=== PATIENT | male | born 1965 | race American Indian/Alaskan Native ===

== ENCOUNTER 2016-07-08 11:03 | Emergency (ER) | payer SELFPAY ==
[2016-07-08 11:39] VITALS: BP 151/89
--- NOTE | 2016-07-08 12:05 | Emergency Department Report ---
ED General Adult HPI - General Chief complaint: Dyspnea/Respdistress Stated complaint: CHEST PAIN / VIN Time Seen by Provider: 07/08/16 11:57 Source: patient, EMS Mode of arrival: Stretcher Limitations: No Limitations - History of Present Illness Initial comments: I am told that the patient was "caught in [employer] lifting". Apparently police called EMS as he was short of breath and had multiple other complaints. His complaints on my care to include shortness of breath anterior nonradiating chest pain and nonproductive cough. He has a history of congestive heart failure and noncompliance with medication. He also states he has a history of renal failure. He complains of bilateral leg swelling. The patient denies any productive sputum. He denies fever or chills. Severity scale (0 -10): 2 Consistency: intermittent Improves with: none Worsens with: none Associated Symptoms: denies other symptoms Treatments Prior to Arrival: none - Related Data Home Medications Medication Instructions Recorded Confirmed Last Taken Furosemide [Lasix TAB] 20 mg PO QAM 06/08/15 07/08/16 07/08/16 Carvedilol [Coreg] 25 mg PO BID 03/11/16 07/08/16 07/08/16 Potassium Chloride [K-Dur] 10 meq PO QDAY 03/11/16 07/08/16 07/08/16 Previous Rx's Medication Instructions Recorded Last Taken Type Insulin Glargine [Lantus VIAL] 40 unit SUB-Q QHS #1 vial 06/08/15 Unknown Rx Lisinopril [Zestril TAB] 20 mg PO QDAY #30 tablet 06/08/15 Unknown Rx Insulin NPH/Regular [NovoLIN 70/30] 25 unit SQ BID #30 units 03/11/16 Unknown Rx Allergies Allergy/AdvReac Type Severity Reaction Status Date / Time Penicillins Allergy Unknown Verified 06/08/15 07:28 ED Review of Systems ROS: Stated complaint: CHEST PAIN / VIN Other details as noted in HPI Constitutional: denies: chills, fever Eyes: denies: eye pain, eye discharge, vision change ENT: denies: ear pain, throat pain Respiratory: cough, shortness of breath. denies: wheezing Cardiovascular: chest pain. denies: palpitations Endocrine: no symptoms reported Gastrointestinal: denies: abdominal pain, nausea, diarrhea Genitourinary: denies: urgency, dysuria Musculoskeletal: denies: back pain, joint swelling, arthralgia Skin: denies: rash, lesions Neurological: denies: headache, weakness, paresthesias Psychiatric: denies: anxiety, depression Hematological/Lymphatic: denies: easy bleeding, easy bruising ED Past Medical Hx - Past Medical History Hx Hypertension: Yes Hx Congestive Heart Failure: Yes Hx Diabetes: Yes - Social History Smoking Status: Former Smoker Substance Use Type: None - Medications Home Medications: Home Medications Medication Instructions Recorded Confirmed Last Taken Type Furosemide [Lasix TAB] 20 mg PO QAM 06/08/15 07/08/16 07/08/16 History Insulin Glargine [Lantus VIAL] 40 unit SUB-Q QHS #1 vial 06/08/15 07/08/16 Unknown Rx Lisinopril [Zestril TAB] 20 mg PO QDAY #30 tablet 06/08/15 07/08/16 Unknown Rx Carvedilol [Coreg] 25 mg PO BID 03/11/16 07/08/16 07/08/16 History Insulin NPH/Regular [NovoLIN 70/30] 25 unit SQ BID #30 units 03/11/16 07/08/16 Unknown Rx Potassium Chloride [K-Dur] 10 meq PO QDAY 03/11/16 07/08/16 07/08/16 History ED Physical Exam - General Limitations: No Limitations General appearance: alert, in no apparent distress - Head Head exam: Present: atraumatic, normocephalic - Eye Eye exam: Present: normal appearance. Absent: scleral icterus - ENT ENT exam: Present: mucous membranes moist - Neck Neck exam: Present: normal inspection - Respiratory Respiratory exam: Present: normal lung sounds bilaterally. Absent: respiratory distress - Cardiovascular Cardiovascular Exam: Present: regular rate, normal rhythm. Absent: systolic murmur, diastolic murmur, rubs, gallop - GI/Abdominal GI/Abdominal exam: Present: soft, normal bowel sounds. Absent: distended, tenderness, guarding, rebound, rigid - Rectal Rectal exam: Present: deferred - Extremities Exam Extremities exam: Present: normal inspection - Back Exam Back exam: Present: normal inspection - Neurological Exam Neurological exam: Present: alert, oriented X3, CN II-XII intact. Absent: motor sensory deficit - Psychiatric Psychiatric exam: Present: normal affect, normal mood - Skin Skin exam: Present: warm, dry, intact, normal color. Absent: rash ED Course Vital Signs 07/08/16 07/08/16 11:36 11:45 Temperature 98.3 F Pulse Rate 84 Respiratory 18 22 Rate Blood Pressure 151/89 O2 Sat by Pulse 96 94 Oximetry ED Medical Decision Making - Lab Data Result diagrams: 07/08/16 11:53 07/08/16 11:53 Laboratory Results - last 24 hr 07/08/16 07/08/16 07/08/16 11:53 11:53 12:08 WBC 6.9 RBC 5.11 H Hgb 15.0 Hct 44.6 MCV 87 MCH 29 MCHC 34 RDW 14.6 Plt Count 202 Lymph % (Auto) 26.0 [place] % (Auto) 9.1 H Eos % (Auto) 1.9 Baso % (Auto) 1.2 Lymph # 1.8 [place] # 0.6 Eos # 0.1 Baso # 0.1 Seg Neutrophils % 61.8 Seg Neutrophils # 4.2 PT 13.2 INR 1.01 APTT 31.7 D-Dimer < 136 POC ABG pH POC ABG pCO2 POC ABG pO2 POC ABG HCO3 POC ABG Total CO2 POC ABG O2 Sat POC ABG Base Excess FiO2 Sodium 136 L Potassium 4.0 Chloride 98.4 Carbon Dioxide 22 Anion Gap 20 BUN 17 Creatinine 1.3 Estimated GFR > 60 BUN/Creatinine Ratio 13.07 Glucose 174 H Calcium 8.1 L Magnesium Total Bilirubin Direct Bilirubin AST ALT Alkaline Phosphatase Ammonia Total Creatine Kinase CK-MB (CK-2) CK-MB (CK-2) Rel Index Troponin T < 0.010 NT-Pro-B Natriuret Pep 1949 H Total Protein Albumin Albumin/Globulin Ratio Urine Color Urine Turbidity Urine pH Ur Specific [place] Urine Protein Urine Glucose (UA) Urine Ketones Urine Blood Urine Nitrite Urine Bilirubin Urine Ictotest Urine Urobilinogen Ur Leukocyte Esterase Urine WBC (Auto) Urine RBC (Auto) U Epithel Cells (Auto) Urine Mucus Urine Opiates Screen Urine Methadone Screen Ur Barbiturates Screen Ur Phencyclidine Scrn Ur Amphetamines Screen U Benzodiazepines Scrn Urine Cocaine Screen U Marijuana (THC) Screen Drugs of Abuse Note 07/08/16 07/08/16 07/08/16 12:08 12:26 12:40 WBC RBC Hgb Hct MCV MCH MCHC RDW Plt Count Lymph % (Auto) [place] % (Auto) Eos % (Auto) Baso % (Auto) Lymph # [place] # Eos # Baso # Seg Neutrophils % Seg Neutrophils # PT INR APTT D-Dimer POC ABG pH 7.505 H POC ABG pCO2 34.6 L POC ABG pO2 80 POC ABG HCO3 27.2 POC ABG Total CO2 28 POC ABG O2 Sat 97 POC ABG Base Excess 4 FiO2 21 Sodium Potassium Chloride Carbon Dioxide Anion Gap BUN Creatinine Estimated GFR BUN/Creatinine Ratio Glucose Calcium Magnesium 2.0 Total Bilirubin 0.5 Direct Bilirubin < 0.2 AST 34 ALT 26 Alkaline Phosphatase 64 Ammonia 37.0 Total Creatine Kinase 666 H CK-MB (CK-2) 10.1 H CK-MB (CK-2) Rel Index 1.5 Troponin T NT-Pro-B Natriuret Pep Total Protein 6.6 Albumin 3.2 L Albumin/Globulin Ratio 0.9 Urine Color Urine Turbidity Urine pH Ur Specific [place] Urine Protein Urine Glucose (UA) Urine Ketones Urine Blood Urine Nitrite Urine Bilirubin Urine Ictotest Urine Urobilinogen Ur Leukocyte Esterase Urine WBC (Auto) Urine RBC (Auto) U Epithel Cells (Auto) Urine Mucus Urine Opiates Screen Urine Methadone Screen Ur Barbiturates Screen Ur Phencyclidine Scrn Ur Amphetamines Screen U Benzodiazepines Scrn Urine Cocaine Screen U Marijuana (THC) Screen Drugs of Abuse Note 07/08/16 07/08/16 12:58 12:58 WBC RBC Hgb Hct MCV MCH MCHC RDW Plt Count Lymph % (Auto) [place] % (Auto) Eos % (Auto) Baso % (Auto) Lymph # [place] # Eos # Baso # Seg Neutrophils % Seg Neutrophils # PT INR APTT D-Dimer POC ABG pH POC ABG pCO2 POC ABG pO2 POC ABG HCO3 POC ABG Total CO2 POC ABG O2 Sat POC ABG Base Excess FiO2 Sodium Potassium Chloride Carbon Dioxide Anion Gap BUN Creatinine Estimated GFR BUN/Creatinine Ratio Glucose Calcium Magnesium Total Bilirubin Direct Bilirubin AST ALT Alkaline Phosphatase Ammonia Total Creatine Kinase CK-MB (CK-2) CK-MB (CK-2) Rel Index Troponin T NT-Pro-B Natriuret Pep Total Protein Albumin Albumin/Globulin Ratio Urine Color Yellow Urine Turbidity Clear Urine pH 5.0 Ur Specific [place] 1.017 Urine Protein >500 Urine Glucose (UA) 50 Urine Ketones Neg Urine Blood Sm Urine Nitrite Neg Urine Bilirubin Neg Urine Ictotest Not Reportable Urine Urobilinogen < 2.0 Ur Leukocyte Esterase Neg Urine WBC (Auto) 3.0 Urine RBC (Auto) 2.0 U Epithel Cells (Auto) < 1.0 Urine Mucus Few Urine Opiates Screen Presumptive negative Urine Methadone Screen Presumptive negative Ur Barbiturates Screen Presumptive negative Ur Phencyclidine Scrn Presumptive negative Ur Amphetamines Screen Presumptive negative U Benzodiazepines Scrn Presumptive negative Urine Cocaine Screen Presumptive positive U Marijuana (THC) Screen Presumptive negative Drugs of Abuse Note Disclamer - EKG Data -: EKG Interpreted by Me EKG shows normal: sinus rhythm, axis, intervals, QRS complexes - EKG Data Interpretation: other - Radiology Data interpreted by me: LVH, inverted T high and anterolateral Critical care attestation.: If time is entered above; I have spent that time in minutes in the direct care of this critically ill patient, excluding procedure time. ED Disposition Clinical Impression: Congestive cardiomyopathy, Cocaine abuse Chest pain Qualifiers: Chest pain type: unspecified Qualified Code(s): R07.9 - Chest pain, unspecified Disposition: DISCHARGED TO HOME OR SELFCARE Is pt being admited?: No Does the pt Need Aspirin: No Condition: Stable Instructions: Chest Pain (ED) Additional Instructions: Patient left. He refused to sign out AMA. Referrals: PRIMARY CARE, [Primary Care Provider] - 3-5 Days Forms: AMA Form Time of Disposition: 14:31
--- NOTE | 2016-07-08 12:05 | XRay Report ---
Single view chest: Compared to when he was 14. History: Shortness of breath Findings: Cardiomegaly. Trachea is midline. No consolidation, pneumothorax or pleural effusion. Impression: Cardiomegaly. No acute lung changes.
[2016-07-08 12:18] LABS: Basophils % (Auto) 1.2 % (0.0-1.8); Eosinophils % (Auto) 1.9 % (0.0-4.3); Hematocrit 44.6 % (35.5-45.6); Mean Corpuscular HGB Conc 34 % (32-34); Mean Corpuscular Hemoglobin 29 pg (28-32); Mean Corpuscular Volume 87 fl (84-94); Platelet Count 202 K/mm3 (140-440); Red Blood Count 5.11 M/mm3 (3.65-5.03); Red Cell Distribution Width 14.6 % (13.2-15.2); White Blood Count 6.9 K/mm3 (4.5-11.0)
[2016-07-08 12:25] LABS: Anion Gap 20 mmol/L; BUN/Creatinine Ratio 13.07; Blood Urea Nitrogen 17 mg/dL (9-20); Calcium 8.1 mg/dL (8.4-10.2); Carbon Dioxide 22 mmol/L (22-30); Chloride 98.4 mmol/L (98-107); Glucose 174 mg/dL (75-100); Sodium 136 mmol/L (137-145)
[2016-07-08 12:42] LABS: Creatine Kinase MB 10.1 ng/mL (0.0-4.0); INR 1.01 (0.87-1.13)
[2016-07-08 12:43] LABS: Alanine Aminotransferase 26 units/L (7-56); Albumin 3.2 g/dL (3.9-5); Albumin/Globulin Ratio 0.9 %; Alkaline Phosphatase 64 units/L (35-129); Bilirubin,Total 0.5 mg/dL (0.1-1.2); Creatine Kinase 666 units/L (55-170); Partial Thromboplastin Time 31.7 Sec. (24.2-36.6); Total Protein 6.6 g/dL (6.3-8.2)
[2016-07-08 12:44] LABS: Bilirubin,Direct < 0.2 mg/dL (0-0.2)
[2016-07-08 12:46] LABS: ISTAT Base Excess 4; ISTAT DEVICE 0; ISTAT HCO3 27.2; ISTAT PCO2 34.6 (35-45); ISTAT PH 7.505 (7.35-7.45); ISTAT PO2 80 (80-105); ISTAT SO2 97; ISTAT TCO2 28
[2016-07-08 13:36] LABS: Bilirubin,Urine NEG (Negative); Blood,Urine SM (Negative); Ketones,Urine NEG (Negative); Leukocyte Esterase,Urine NEG (Negative); Mucus,Urine FEW /HPF; Nitrite,Urine NEG (Negative); Urobilinogen,Urine < 2.0 mg/dL (<2.0)
[2016-07-08 13:39] LABS: Urine Drugs of Abuse Note Disclamer
[2016-07-08 13:42] LABS: Protein,Urine >500 mg/dL (Negative)
== END 2016-07-08 14:13 | disposition home or self-care (01) ==
LOC: ED 11:03
DX: I42.0 Dilated cardiomyopathy (principal); F14.10 Cocaine abuse, uncomplicated; R07.9 Chest pain, unspecified; I10 Essential (primary) hypertension; E11.9 Type 2 diabetes mellitus without complications; Z87.891 Personal history of nicotine dependence; Z79.4 Long term (current) use of insulin; Z88.0 Allergy status to penicillin
CPT/HCPCS: 36415; 71010; 80048; 80074; 80307; 81001; 82140; 82550; 82553; 82803; 83735; 83880; 84484; 85025; 85379; 85610; 85730; 93005; 93010

== ENCOUNTER 2016-08-20 20:46 | Inpatient (IN) | payer OTHER ==
[2016-08-20] MEDS ORDERED: DUONEB 0.5 MG-3 MG/3 ML SOLN IH ONE ×2 (20:52→21:00)
[2016-08-20 21:32] LABS: Basophils % (Auto) 0.9 % (0.0-1.8); Hematocrit 49.8 % (35.5-45.6); Hemoglobin 16.2 gm/dl (11.8-15.2); Mean Corpuscular HGB Conc 33 % (32-34); Mean Corpuscular Hemoglobin 29 pg (28-32); Mean Corpuscular Volume 89 fl (84-94); Platelet Count 230 K/mm3 (140-440); Red Blood Count 5.62 M/mm3 (3.65-5.03); White Blood Count 8.2 K/mm3 (4.5-11.0)
[2016-08-20] MEDS ORDERED: LASIX IV ONE (21:40)
[2016-08-20] MEDS ORDERED: ASPIRIN PO ONE (21:40)
--- NOTE | 2016-08-20 21:56 | Emergency Department Report ---
ED Shortness of Breath HPI - General Chief Complaint: Dyspnea/Respdistress Stated Complaint: DIFFICULTY BREATHING Time Seen by Provider: 08/20/16 21:26 Source: patient Mode of arrival: Wheelchair Limitations: No Limitations - History of Present Illness Initial Comments: 50-year-old male with a past medical history morbid obesity, sleep apnea, asthma , CHF, diabetes, and hypertension presents to the hospital complains of shortness of breath ongoing for the past 3-4 days. Symptoms are worse with exertion. Intermittent chest pain described as sharp at times but also feels like something sitting on his chest. Pain moderate in intensity. Patient has been compliant with his Lasix 20 mg but states that 18 months ago when he was in nursing home he was on 40 mg daily and thinks that the dose was not high enough. He complains of abdominal swelling and distention and worsening bilateral ankle/ distal extremity edema. Positive cough productive of white sputum. Patient also has sleep apnea but cannot afford a CPAP machine and states he wakes up frequently throughout the night. No complaints of home oxygen use patient does not use home oxygen. Upon medical record review patient last visit to the ER was in July and was to see uds was positive for cocaine. Patient denies recent cocaine use. - Related Data Home Medications Medication Instructions Recorded Confirmed Last Taken Furosemide [Lasix TAB] 20 mg PO QAM 06/08/15 08/20/16 1 Day Ago Carvedilol [Coreg] 25 mg PO BID 03/11/16 08/20/16 1 Day Ago 20 Potassium Chloride [K-Dur] 10 meq PO QDAY 03/11/16 08/20/16 1 Day Ago Previous Rx's Medication Instructions Recorded Last Taken Type Insulin Glargine [Lantus VIAL] 40 unit SUB-Q QHS #1 vial 06/08/15 Unknown Rx Lisinopril [Zestril TAB] 20 mg PO QDAY #30 tablet 06/08/15 1 Day Ago Rx Insulin NPH/Regular [NovoLIN 70/30] 25 unit SQ BID #30 units 03/11/16 Unknown Rx Allergies Allergy/AdvReac Type Severity Reaction Status Date / Time Penicillins Allergy Unknown Verified 06/08/15 07:28 ED Review of Systems ROS: Stated complaint: DIFFICULTY BREATHING Other details as noted in HPI Comment: All other systems reviewed and negative Other: Constitutional: No fevers chills Eyes: No eye pain visual changes ENT: No ear pain or throat pain Neck: Denies pain Respiratory: as per hpi Cardiovascular:as per hpi GI: Denies abdominal pain : Denies dysuria Musculoskeletal: Denies back pain Skin: Denies rash, lesions, erythema Neurologic: Denies headache, numbness, weakness Psychiatric: Denies suicidal ideation, hallucinations ED Past Medical Hx - Past Medical History Hx Hypertension: Yes Hx Congestive Heart Failure: Yes Hx Diabetes: Yes Hx Asthma: Yes - Social History Smoking Status: Unknown if ever smoked Substance Use Type: None - Medications Home Medications: Home Medications Medication Instructions Recorded Confirmed Last Taken Type Furosemide [Lasix TAB] 20 mg PO QAM 06/08/15 08/20/16 1 Day Ago History Insulin Glargine [Lantus VIAL] 40 unit SUB-Q QHS #1 vial 06/08/15 08/20/16 Unknown Rx Lisinopril [Zestril TAB] 20 mg PO QDAY #30 tablet 06/08/15 08/20/16 1 Day Ago Rx Carvedilol [Coreg] 25 mg PO BID 03/11/16 08/20/16 1 Day Ago History 20 Insulin NPH/Regular [NovoLIN 70/30] 25 unit SQ BID #30 units 03/11/16 08/20/16 Unknown Rx Potassium Chloride [K-Dur] 10 meq PO QDAY 03/11/16 08/20/16 1 Day Ago History ED Physical Exam - General Limitations: No Limitations - Other Other exam information: General: No limitations, patient is alert in no acute distress Head exam: Atraumatic, normocephalic Eyes exam: Normal appearance, pupils equal reactive to light, extraocular movements intact ENT: Moist mucous membrane, normal oropharynx Neck exam: Normal inspection, full range of motion Respiratory exam: mild basilar crackles Cardiovascular: Normal rate and rhythm, normal heart sounds Abdomen: Soft, nondistended, and nontender, with normal bowel sounds, no rebound, or guarding Extremity: Full range of motion, b/l lower extermity edema Back: Normal Inspection, full range of motion, no tenderness Neurologic: Alert, oriented x3, cranial nerves intact, no motor or sensory deficit Psychiatric: normal affect, normal mood Skin: Warm, dry, intact ED Course Vital Signs 08/20/16 08/20/16 08/20/16 20:54 21:04 21:06 Temperature 98.4 F Pulse Rate 108 H Pulse Rate [ 104 H Anterior Bilateral Throughout] Respiratory 30 H Rate Respiratory 18 Rate [Anterior Bilateral Throughout] Blood Pressure 191/138 Blood Pressure [Left] O2 Sat by Pulse 90 97 Oximetry 08/20/16 08/20/16 21:20 22:22 Temperature 98 F 98 F Pulse Rate 100 H 103 H Pulse Rate [ Anterior Bilateral Throughout] Respiratory 24 20 Rate Respiratory Rate [Anterior Bilateral Throughout] Blood Pressure Blood Pressure 108/83 101/83 [Left] O2 Sat by Pulse 100 96 Oximetry - Reevaluation(s) Reevaluation #1: 08/21/16 00:44 Patient received Ventolin neb prior to my evaluation and reports some improvement and shortness of breath ED Medical Decision Making - Lab Data Result diagrams: 08/20/16 21:18 08/20/16 22:28 Lab Results 08/20/16 08/20/16 08/20/16 Range/Units 21:17 21:18 21:31 WBC 8.2 (4.5-11.0) K/mm3 RBC 5.62 H (3.65-5.03) M/mm3 Hgb 16.2 H (11.8-15.2) gm/dl Hct 49.8 H (35.5-45.6) % MCV 89 (84-94) fl MCH 29 (28-32) pg MCHC 33 (32-34) % RDW 15.0 (13.2-15.2) % Plt Count 230 (140-440) K/mm3 Lymph % (Auto) 17.5 (13.4-35.0) % [place] % (Auto) 9.8 H (0.0-7.3) % Eos % (Auto) 2.0 (0.0-4.3) % Baso % (Auto) 0.9 (0.0-1.8) % Lymph # 1.4 (1.2-5.4) K/mm3 [place] # 0.8 (0.0-0.8) K/mm3 Eos # 0.2 (0.0-0.4) K/mm3 Baso # 0.1 (0.0-0.1) K/mm3 Seg Neutrophils % 69.8 (40.0-70.0) % Seg Neutrophils # 5.7 (1.8-7.7) K/mm3 Sodium TNR Potassium TNR Chloride TNR Carbon Dioxide TNR Anion Gap TNR BUN TNR Creatinine TNR Estimated GFR TNR BUN/Creatinine Ratio TNR Glucose TNR Calcium TNR Total Creatine Kinase 1247 H (55-170) units/L CK-MB (CK-2) 14.1 H (0.0-4.0) ng/mL CK-MB (CK-2) Rel Index 1.1 (0-4) Troponin T TNR NT-Pro-B Natriuret Pep TNR Urine Opiates Screen Urine Methadone Screen Ur Barbiturates Screen Ur Phencyclidine Scrn Ur Amphetamines Screen U Benzodiazepines Scrn Urine Cocaine Screen U Marijuana (THC) Screen Drugs of Abuse Note 08/20/16 08/20/16 Range/Units 22:28 22:50 WBC (4.5-11.0) K/mm3 RBC (3.65-5.03) M/mm3 Hgb (11.8-15.2) gm/dl Hct (35.5-45.6) % MCV (84-94) fl MCH (28-32) pg MCHC (32-34) % RDW (13.2-15.2) % Plt Count (140-440) K/mm3 Lymph % (Auto) (13.4-35.0) % [place] % (Auto) (0.0-7.3) % Eos % (Auto) (0.0-4.3) % Baso % (Auto) (0.0-1.8) % Lymph # (1.2-5.4) K/mm3 [place] # (0.0-0.8) K/mm3 Eos # (0.0-0.4) K/mm3 Baso # (0.0-0.1) K/mm3 Seg Neutrophils % (40.0-70.0) % Seg Neutrophils # (1.8-7.7) K/mm3 Sodium 138 Potassium 3.7 Chloride 101.2 Carbon Dioxide 27 Anion Gap 14 BUN 15 Creatinine 1.3 Estimated GFR > 60 BUN/Creatinine Ratio 11.53 Glucose 289 H Calcium 8.3 L Total Creatine Kinase (55-170) units/L CK-MB (CK-2) (0.0-4.0) ng/mL CK-MB (CK-2) Rel Index (0-4) Troponin T NT-Pro-B Natriuret Pep Urine Opiates Screen Presumptive negative Urine Methadone Screen Presumptive negative Ur Barbiturates Screen Presumptive negative Ur Phencyclidine Scrn Presumptive negative Ur Amphetamines Screen Presumptive negative U Benzodiazepines Scrn Presumptive negative Urine Cocaine Screen Presumptive positive U Marijuana (THC) Screen Presumptive negative Drugs of Abuse Note Disclamer - EKG Data -: EKG Interpreted by Me (sinus tach 101 lateral T inversion) - EKG Data When compared to previous EKG there are: no significant change - Radiology Data Radiology results: image reviewed (cxr: cardiomegaly, pulm edema) - Medical Decision Making Patient will be admitted to the hospitals for acute CHF. Troponin and BNP still pending after calling the lab several times for repeat after initial hemolyzed values. EKG is unchanged. CKs are elevated and patient's UDS is still positive for cocaine. Lasix 40 mg given with positive urine output. Patient will be admitted to the hospital due to CHF findings on x-ray and further cardiac testing and monitoring - Differential Diagnosis chf, asthma, copd, unstable angina, mi Critical Care Time: No Critical care attestation.: If time is entered above; I have spent that time in minutes in the direct care of this critically ill patient, excluding procedure time. ED Disposition Clinical Impression: CHF (congestive heart failure), Pulmonary edema, Chest pain, Diabetes Disposition: OP ADMITTED IP TO THIS HOSP Is pt being admited?: Yes Condition: Stable Time of Disposition: 23:33 (Dr Lai/hosp)
[2016-08-20 22:14] LABS: Creatine Kinase MB 14.1 ng/mL (0.0-4.0)
[2016-08-20 22:15] LABS: Potassium TNR mmol/L (3.6-5.0)
[2016-08-20 22:17] LABS: Anion Gap TNR mmol/L; Carbon Dioxide TNR mmol/L (22-30); Chloride TNR mmol/L (98-107); Sodium TNR mmol/L (137-145)
[2016-08-20 22:18] LABS: BUN/Creatinine Ratio TNR; Blood Urea Nitrogen TNR mg/dL (9-20); Calcium TNR mg/dL (8.4-10.2); Glucose TNR mg/dL (75-100)
[2016-08-20 22:55] LABS: Anion Gap 14 mmol/L; BUN/Creatinine Ratio 11.53; Blood Urea Nitrogen 15 mg/dL (9-20); Calcium 8.3 mg/dL (8.4-10.2); Carbon Dioxide 27 mmol/L (22-30); Chloride 101.2 mmol/L (98-107); Glucose 289 mg/dL (75-100); Potassium 3.7 mmol/L (3.6-5.0); Sodium 138 mmol/L (137-145)
[2016-08-20 23:07] LABS: Urine Drugs of Abuse Note Disclamer
[2016-08-20] MEDS ORDERED: TYLENOL PO PRN (23:52)
[2016-08-20] MEDS ORDERED: DULCOLAX PR PRN (23:52)
[2016-08-20] MEDS ORDERED: ZOFRAN IV PRN (23:52)
[2016-08-20] MEDS ORDERED: D50W (25GM) IV PRN (23:52)
[2016-08-20] MEDS ORDERED: MILK OF MAGNESIA PO PRN (23:52)
--- NOTE | 2016-08-20 23:55 | History and Physical Report ---
History of Present Illness Date of examination: 08/20/16 History of present illness: Admits [age]-year-old man with a history of CHF, hypertension, diabetes complicated by neuropathy comes emergency room with complaints of shortness breath, dyspnea on exertion, lower extremity edema 3 days. Also complaining of chest pain in the epigastric area which she described as someone sitting on his chest, intermittent in nature lasting for 10 minutes, no radiation, cannot identify exacerbating or relieving factors. He denies nausea vomiting, diaphoresis or palpitation. Patient stated that he was recently depressed, relapse on alcohol consumption Patient denies cough, abdominal pain, hematochezia, dysuria, frequency, focal weakness, dysarthria, fever chills, polydipsia polyuria, hot or cold intolerance , easy bruisability, or rash or bleeding from mucosal membrane, rhinorrhea, epistaxis, earache, tinnitus, blurry vision, eye discharge, anxiety, depression. Other review of systems negative PAST SURGICAL HISTORY: None SOCIAL HISTORY: Alcohol use is discussed above, no tobacco or drugs FAMILY HISTORY: Hypertension Medications and Allergies Allergies Allergy/AdvReac Type Severity Reaction Status Date / Time Penicillins Allergy Unknown Verified 06/08/15 07:28 Home Medications Medication Instructions Recorded Confirmed Last Taken Type Furosemide [Lasix TAB] 20 mg PO QAM 06/08/15 08/20/16 1 Day Ago History Insulin Glargine [Lantus VIAL] 40 unit SUB-Q QHS #1 vial 06/08/15 08/20/16 Unknown Rx Lisinopril [Zestril TAB] 20 mg PO QDAY #30 tablet 06/08/15 08/20/16 1 Day Ago Rx Carvedilol [Coreg] 25 mg PO BID 03/11/16 08/20/16 1 Day Ago History 20 Insulin NPH/Regular [NovoLIN 70/30] 25 unit SQ BID #30 units 03/11/16 08/20/16 Unknown Rx Potassium Chloride [K-Dur] 10 meq PO QDAY 03/11/16 08/20/16 1 Day Ago History Active Meds: Active Medications Carvedilol (Coreg) 25 mg PO BID ROXANA Lisinopril (Zestril) 20 mg PO QDAY ROXANA Exam - Physical Exam Narrative exam: Gen. appearance: Patient lying in bed, no apparent distress HEENT: Normocephalic, atraumatic, pupils equally round and reactive to light, extraocular movement intact, and no sclericterus,. No JVD or thyromegaly or nodule,neck supple, no carotid bruit ,mucous membranes moist, no exudate or erythema Heart: S1, S2, regular rate and rhythm Lungs: Crackles bilaterally, breathing comfortable Abdomen: Positive bowel sounds, nontender, nondistended, no organomegaly Extremity: Positive edema, no cyanosis, clubbing Skin: No rash, nodules, warm, dry Neuro: Oriented 3, cranial nerves II-12 intact, speech is fluent, motor and sensory intact - Constitutional Vitals: Temp Pulse Resp BP Pulse Ox 98 F 103 H 20 101/83 96 08/20/16 22:22 08/20/16 22:22 08/20/16 22:22 08/20/16 22:22 08/20/16 22:22 Results - Labs CBC & Chem 7: 08/20/16 21:18 08/20/16 22:28 Labs: Abnormal lab results 08/20/16 08/20/16 08/20/16 Range/Units 21:18 21:31 22:28 RBC 5.62 H (3.65-5.03) M/mm3 Hgb 16.2 H (11.8-15.2) gm/dl Hct 49.8 H (35.5-45.6) % [place] % (Auto) 9.8 H (0.0-7.3) % Glucose 289 H (75-100) mg/dL Calcium 8.3 L (8.4-10.2) mg/dL Total Creatine Kinase 1247 H (55-170) units/L CK-MB (CK-2) 14.1 H (0.0-4.0) ng/mL - Imaging and Cardiology EKG: image reviewed Chest x-ray: image reviewed Assessment and Plan CHF exacerbation Chest pain, rule out ACS Hypertension Diabetes comforted by neuropathy Substance abuse Admits medicine Start diuresis with IV Lasix Start Beta ned, SOUTH inhibitor, aspirin Check cardiac enzymes, echo, stress test Check fingersticks and initiate insulin sliding scale Start DVT prophylaxis
[2016-08-21 01:01] LABS: Creatine Kinase MB 12.2 ng/mL (0.0-4.0)
[2016-08-21 03:36] LABS: Basophils % (Auto) 0.2 % (0.0-1.8); Eosinophils % (Auto) 1.9 % (0.0-4.3); Hematocrit 48.5 % (35.5-45.6); Hemoglobin 16.1 gm/dl (11.8-15.2); Mean Corpuscular HGB Conc 33 % (32-34); Mean Corpuscular Hemoglobin 29 pg (28-32); Mean Corpuscular Volume 87 fl (84-94); Platelet Count 207 K/mm3 (140-440); Red Blood Count 5.58 M/mm3 (3.65-5.03); Red Cell Distribution Width 15.1 % (13.2-15.2); White Blood Count 8.2 K/mm3 (4.5-11.0)
[2016-08-21 03:59] LABS: Anion Gap 14 mmol/L; Blood Urea Nitrogen 14 mg/dL (9-20); Calcium 8.1 mg/dL (8.4-10.2); Carbon Dioxide 30 mmol/L (22-30); Chloride 99.2 mmol/L (98-107); Glucose 332 mg/dL (75-100); Potassium 3.9 mmol/L (3.6-5.0); Sodium 139 mmol/L (137-145)
[2016-08-21] MEDS: NOVOLOG SUB-Q SCH ×4 (07:06→23:28)
[2016-08-21] MEDS: LASIX IV SCH ×2 (07:08→18:21)
[2016-08-21] MEDS ORDERED: LEXISCAN IV ONE ×2 (08:00→08:11)
[2016-08-21 08:55] LABS: Creatine Kinase MB 11.1 ng/mL (0.0-4.0)
[2016-08-21] MEDS ORDERED: LOVENOX SUB-Q SCH (10:00)
--- NOTE | 2016-08-21 10:09 | XRay Report ---
AP chest History: Shortness of breath Findings: Moderate cardiomegaly, moderate pulmonary venous congestion and small pleural effusions have developed since 07/08/16. No evidence for consolidation or pneumothorax. Impression: CHF.
[2016-08-21] MEDS: LOVENOX SUB-Q SCH (10:19)
[2016-08-21] MEDS: ZESTRIL PO SCH (10:19)
[2016-08-21] MEDS: BABY ASPIRIN PO SCH (10:19)
[2016-08-21] MEDS: COREG PO SCH ×2 (10:19→22:16)
[2016-08-21 13:25] LABS: Creatine Kinase MB 9.9 ng/mL (0.0-4.0)
--- NOTE | 2016-08-21 13:50 | Consultation ---
History of Present Illness Consult date: 08/21/16 Consult reason: congestive heart failure History of present illness: The patient is a 50-year-old man with multiple medical problems. He has hypertension, diabetes, obstructive sleep apnea. He also has "congestive heart failure" which she states was diagnosed at [place] several years ago. He receives his usual medical and cardiac care at [facility], but admits to poor compliance with medications and poor compliance with follow-up. He presents to the hospital at this time with several days of shortness of breath, and oxygen saturation was 90% on room air in the emergency room. Chest x-ray showed interstitial edema consistent with mild CHF. Other laboratory values include a blood glucose in the 300s, and his CPK greater than 1000 with a 1% MB fraction consistent with rhabdomyolysis. He denies chest pain, palpitations or lower extremity edema. ECG is normal sinus rhythm, no acute ischemic changes, essentially normal ECG. Past History Past Medical History: COPD, diabetes, heart failure, hypertension Medications and Allergies Allergies Allergy/AdvReac Type Severity Reaction Status Date / Time Penicillins Allergy Unknown Verified 06/08/15 07:28 Home Medications Medication Instructions Recorded Confirmed Last Taken Type Furosemide [Lasix TAB] 20 mg PO QAM 06/08/15 08/20/16 1 Day Ago History Insulin Glargine [Lantus VIAL] 40 unit SUB-Q QHS #1 vial 06/08/15 08/20/16 Unknown Rx Lisinopril [Zestril TAB] 20 mg PO QDAY #30 tablet 06/08/15 08/20/16 1 Day Ago Rx Carvedilol [Coreg] 25 mg PO BID 03/11/16 08/20/16 1 Day Ago History 20 Insulin NPH/Regular [NovoLIN 70/30] 25 unit SQ BID #30 units 03/11/16 08/20/16 Unknown Rx Potassium Chloride [K-Dur] 10 meq PO QDAY 03/11/16 08/20/16 1 Day Ago History Active Meds: Active Medications Acetaminophen (Tylenol) 650 mg PO Q4H PRN PRN Reason: Pain MILD(1-3)/Fever >100.5/PARIS Aspirin (Baby Aspirin) 81 mg PO QDAY ROXANA Bisacodyl (Dulcolax) 10 mg SC QDAY PRN PRN Reason: Constipation unrelieved by MOM Carvedilol (Coreg) 25 mg PO BID [facility] Dextrose (D50w (25gm)) 50 ml IV PRN PRN PRN Reason: Hypoglycemia Enoxaparin Sodium (Lovenox) 40 mg SUB-Q QDAY@1000 ROXANA Furosemide (Lasix) 40 mg IV BID@0600,1800 ROXANA Last Admin: 08/21/16 07:08 Dose: 40 mg Hydralazine HCl (Apresoline) 5 mg IV Q6HR PRN PRN Reason: Hypertension Insulin Aspart (Novolog) 0 units SUB-Q ACHS ROXANA PRN Reason: Protocol Last Admin: 08/21/16 07:06 Dose: 4 units Lisinopril (Zestril) 20 mg PO QDAY ROXANA Magnesium Hydroxide (Milk Of Magnesia) 30 ml PO Q4H PRN PRN Reason: Constipation Ondansetron HCl (Zofran) 4 mg IV Q8H PRN PRN Reason: N/V unrelieved by Reglan Oxycodone/Acetaminophen (Percocet 5/325) 1 tab PO Q6H PRN PRN Reason: Pain, Moderate (4-6) Review of Systems Cardiovascular: shortness of breath, no chest pain, no orthopnea, no palpitations, no rapid/irregular heart beat, no edema, no syncope, no lightheadedness Physical Examination Vital Signs Temp Pulse Resp BP Pulse Ox 98.4 F 108 H 30 H 191/138 90 08/20/16 20:54 08/20/16 20:54 08/20/16 20:54 08/20/16 20:54 08/20/16 20:54 General appearance: no acute distress HEENT: Positive: PERRL Neck: Positive: neck supple Cardiac: Positive: Reg Rate and Rhythm Lungs: Positive: Decreased Breath Sounds Neuro: Positive: Grossly Intact Abdomen: Positive: Soft Male genitourinary: Positive: deferred Skin: Positive: Clear Extremities: Absent: edema Results 08/21/16 03:26 08/21/16 03:26 Cardiac Enzymes 08/21/16 08/21/16 08/21/16 Range/Units 00:16 08:06 12:47 CK-MB (CK-2) 12.2 H 11.1 H 9.9 H (0.0-4.0) ng/mL CBC 08/21/16 Range/Units 03:26 WBC 8.2 (4.5-11.0) K/mm3 RBC 5.58 H (3.65-5.03) M/mm3 Hgb 16.1 H (11.8-15.2) gm/dl Hct 48.5 H (35.5-45.6) % Plt Count 207 (140-440) K/mm3 Lymph # 1.6 (1.2-5.4) K/mm3 [place] # 0.8 (0.0-0.8) K/mm3 Eos # 0.2 (0.0-0.4) K/mm3 Baso # 0.0 (0.0-0.1) K/mm3 Comprehensive Metabolic Panel 08/21/16 Range/Units 03:26 Sodium 139 (137-145) mmol/L Potassium 3.9 (3.6-5.0) mmol/L Chloride 99.2 (98-107) mmol/L Carbon Dioxide 30 (22-30) mmol/L BUN 14 (9-20) mg/dL Creatinine 1.4 (0.8-1.5) mg/dL Glucose 332 H (75-100) mg/dL Calcium 8.1 L (8.4-10.2) mg/dL EKG interpretations - Telemetry EKG Rhythm: Sinus Rhythm Assessment and Plan - Patient Problems (1) CHF (congestive heart failure) Current Visit: Yes Status: Acute Qualifiers: Congestive heart failure type: C Congestive heart failure chronicity: C Plan to address problem: Diuretic therapy for fluid overload. We'll get an echocardiogram for left ventricular function assessment. Further cardiac evaluation and treatment will depend on clinical course. Once his heart failure is resolved, we'll get a predischarge Persantine thallium stress test.
[2016-08-21] MEDS: PERCOCET 5/325 PO PRN (18:38)
[2016-08-21] MEDS: APRESOLINE IV PRN (22:16)
[2016-08-22] MEDS: LASIX IV SCH ×2 (05:24→17:46)
[2016-08-22] MEDS: PERCOCET 5/325 PO PRN ×4 (06:46→22:02)
--- NOTE | 2016-08-22 06:49 | Progress Note ---
Assessment and Plan - Patient Problems (1) CHF (congestive heart failure) Current Visit: Yes Status: Acute Qualifiers: Congestive heart failure type: C Congestive heart failure chronicity: C Plan to address problem: Cardiology team consulted, CHf Protocol: Fluid restriction, sodium restriction, afterload reduction, diuresis, daily weight, telemetry (2) Substance abuse Current Visit: Yes Status: Acute Plan to address problem: Pt counseled (3) Metabolic syndrome Current Visit: Yes Status: Acute Plan to address problem: PT counseled (4) Chest pain Current Visit: Yes Status: Acute Qualifiers: Chest pain type: C Plan to address problem: chest pain protocol, cardiology team consulted, telemetry, (5) Uncontrolled diabetes mellitus Current Visit: No Status: Acute Qualifiers: Diabetes mellitus type: D Diabetes mellitus complication status: D Diabetes mellitus complication detail: D Diabetic retinopathy severity: D Diabetes mellitus macular edema: D Diabetes mellitus assisted insulin use: D Chronic kidney disease stage: C Plan to address problem: ADA diet, insulin, accu check (6) DVT prophylaxis Current Visit: Yes Status: Acute History Interval history: Pt resting in bed, Pt states that he feels swollen. Pt denies CP, Palpitations, NVD. No reported nursing events. Hospitalist Physical - Constitutional Vitals: Temp Pulse Resp BP Pulse Ox 97.6 F 84 20 175/114 99 08/22/16 05:11 08/22/16 05:11 08/22/16 05:11 08/22/16 05:11 08/22/16 05:11 General appearance: Present: no acute distress, obese - EENT Eyes: Present: PERRL, EOM intact - Neck Neck: Present: supple - Respiratory Respiratory: bilateral: diminished - Cardiovascular Rhythm: regular Heart Sounds: Present: S1 & S2 - Extremities Extremities: no ischemia Extremity abnormal: edema Peripheral Pulses: within normal limits - Abdominal General gastrointestinal: soft, non-tender, non-distended - Integumentary Integumentary: Present: clear, dry - Psychiatric Psychiatric: appropriate mood/affect, cooperative - Neurologic Neurologic: CNII-XII intact Results - Labs CBC & Chem 7: 08/21/16 03:26 08/21/16 03:26 Labs: Laboratory Last Values WBC 8.2 K/mm3 (4.5-11.0) 08/21/16 03:26 RBC 5.58 M/mm3 (3.65-5.03) H 08/21/16 03:26 Hgb 16.1 gm/dl (11.8-15.2) H 08/21/16 03:26 Hct 48.5 % (35.5-45.6) H 08/21/16 03:26 MCV 87 fl (84-94) 08/21/16 03:26 MCH 29 pg (28-32) 08/21/16 03:26 MCHC 33 % (32-34) 08/21/16 03:26 RDW 15.1 % (13.2-15.2) 08/21/16 03:26 Plt Count 207 K/mm3 (140-440) 08/21/16 03:26 Lymph % (Auto) 19.8 % (13.4-35.0) 08/21/16 03:26 [place] % (Auto) 10.1 % (0.0-7.3) H 08/21/16 03:26 Eos % (Auto) 1.9 % (0.0-4.3) 08/21/16 03:26 Baso % (Auto) 0.2 % (0.0-1.8) 08/21/16 03:26 Lymph # 1.6 K/mm3 (1.2-5.4) 08/21/16 03:26 [place] # 0.8 K/mm3 (0.0-0.8) 08/21/16 03:26 Eos # 0.2 K/mm3 (0.0-0.4) 08/21/16 03:26 Baso # 0.0 K/mm3 (0.0-0.1) 08/21/16 03:26 Seg Neutrophils % 68.0 % (40.0-70.0) 08/21/16 03:26 Seg Neutrophils # 5.6 K/mm3 (1.8-7.7) 08/21/16 03:26 Sodium 139 mmol/L (137-145) 08/21/16 03:26 Potassium 3.9 mmol/L (3.6-5.0) 08/21/16 03:26 Chloride 99.2 mmol/L (98-107) 08/21/16 03:26 Carbon Dioxide 30 mmol/L (22-30) 08/21/16 03:26 Anion Gap 14 mmol/L 08/21/16 03:26 BUN 14 mg/dL (9-20) 08/21/16 03:26 Creatinine 1.4 mg/dL (0.8-1.5) 08/21/16 03:26 Estimated GFR > 60 ml/min 08/21/16 03:26 BUN/Creatinine Ratio 10.00 % 08/21/16 03:26 Glucose 332 mg/dL (75-100) H 08/21/16 03:26 Calcium 8.1 mg/dL (8.4-10.2) L 08/21/16 03:26 Total Creatine Kinase 879 units/L (55-170) H 08/21/16 12:47 CK-MB (CK-2) 9.9 ng/mL (0.0-4.0) H 08/21/16 12:47 CK-MB (CK-2) Rel Index 1.1 (0-4) 08/21/16 12:47 Troponin T 0.014 ng/mL (0.00-0.029) 08/21/16 12:47 NT-Pro-B Natriuret Pep 4225 pg/mL (0-900) H 08/21/16 00:16 Urine Opiates Screen Presumptive negative 08/20/16 22:50 Urine Methadone Screen Presumptive negative 08/20/16 22:50 Ur Barbiturates Screen Presumptive negative 08/20/16 22:50 Ur Phencyclidine Scrn Presumptive negative 08/20/16 22:50 Ur Amphetamines Screen Presumptive negative 08/20/16 22:50 U Benzodiazepines Scrn Presumptive negative 08/20/16 22:50 Urine Cocaine Screen Presumptive positive 08/20/16 22:50 U Marijuana (THC) Screen Presumptive negative 08/20/16 22:50 Drugs of Abuse Note Disclamer 08/20/16 22:50
[2016-08-22] MEDS: NOVOLOG SUB-Q SCH ×5 (08:24→22:03)
[2016-08-22] MEDS: BABY ASPIRIN PO SCH (09:42)
[2016-08-22] MEDS: ZESTRIL PO SCH (09:43)
[2016-08-22] MEDS: COREG PO SCH ×2 (09:43→22:02)
[2016-08-22] MEDS: LOVENOX SUB-Q SCH (09:43)
[2016-08-22] MEDS ORDERED: PNEUMOVAX 23 IM ONE (12:00)
[2016-08-22] MEDS ORDERED: FLUARIX QUAD 2016-2017(36 MOS+) IM ONE (12:00)
--- NOTE | 2016-08-22 12:05 | Admit Criteria Form ---
Admission Criteria Documentation: HEART FAILURE: COMMON COMPLICATIONS Clinical Indications for Inpatient Care (Place 'X' for any and all applicable criteria): Ongoing inpatient care may be indicated for heart failure with ANY ONE of the following (1)(2)(3)(4)(5): [ ]I. Ongoing need for care for primary condition requiring frequent therapy adjustments because of changes in cardiac function (eg, drug dosage changes for drugs that are renally metabolized) [ ]II. New-onset heart failure [ ]III. Heart failure with decreased urine output not responsive to attempts to optimize volume status [ ]IV. Acute cardiac ischemia causing or associated with failure [X]V. Complications of heart failure, including ANY ONE of the following: [ ]a) Pericardial effusion [ ]b) Symptomatic pleural effusion [ ]c) O2 saturation <90% or PO2 < 60 mm Hg (8.0 kPa) on room air or require baseline supplemental O2 [X ]d) Tachypnea [X ]e) Dyspnea [ ]f) Syncope [ ]g) Change in mental status [ ]h) Acute renal insufficiency that is severe (reduction of more than 50% in estimated glomerular filtration rate from baseline) or progressive reduction of more than 25% in estimated glomerular filtration rate from baseline, with creatinine continuing to rise) [ ]i) Hemodynamic instability [ ]j) Anasarca [ ]k) Clinically significant metabolic abnormalities due to heart failure (eg, new-onset metabolic acidosis) Extended stay beyond goal length of stay for primary condition may be needed until ALL of the following are present(1)(3): [ ]a) Stable and effective diuretic regimen established (or patient on stable dialysis regimen if in chronic renal failure) [ ]b) Breathing comfortably at rest [ ]c) Saturation of arterial oxygen greater than 90% or at acceptable baseline [ ]d) Pulmonary edema absent or improved [ ]e) Hemodynamic stability [ ]f) Volume status acceptable on oral medication [ ]g) Peripheral or sacral edema absent or improved [ ]h) Renal function stable and manageable at a lower level of care [ ]i) Complications (eg, pleural effusion) resolved or manageable at a lower level of care [ ]j) Patient or caregiver has received written discharge instructions or educational material addressing activity level, diet, discharge medications, follow-up appointment, weight monitoring, and what to do if symptoms worsen The original [employer] content created by [employer] has been revised. The portions of the content which have been revised are identified through the use of italic text or in bold, and [facility] has neither reviewed nor approved the modified material.All other unmodified content is copyright [facility]. Please see references footnoted in the original [facility] edition 2016 Admission Criteria Met: Yes
--- NOTE | 2016-08-22 16:05 | Progress Note ---
Assessment and Plan CHF exacerbation, systolic EF 20-25% on echocardiogram Hypertension Diabetes Obstructive Sleep Apnea Non compliance with medications,follow-up and low sodium diet Rhabdomyolysis Further cardiac evaluation with a persantine stress test tomorrow morning. Subjective Date of service: 08/22/16 Interval history: Patient reports shortness of breath is less. Lower extremity edema is resolving. Objective Vital Signs Temp Pulse Pulse Resp Resp BP BP 08/22/16 14:00 98.3 F 90 20 188/118 08/22/16 10:50 08/22/16 10:00 08/22/16 09:14 97.8 F 90 20 175/106 08/22/16 07:45 22 08/22/16 06:46 22 08/22/16 05:11 97.6 F 84 20 175/114 08/22/16 01:00 22 08/22/16 00:15 98.2 F 90 18 159/98 08/22/16 00:00 18 08/21/16 22:16 101 H 182/114 08/21/16 22:00 101 H 22 22 08/21/16 21:32 08/21/16 19:59 97.6 F 101 H 20 182/114 08/21/16 19:07 101 H 08/21/16 17:10 97.9 F 106 H 20 202/122 Pulse Ox 08/22/16 14:00 99 08/22/16 10:50 95 08/22/16 10:00 95 08/22/16 09:14 93 08/22/16 07:45 08/22/16 06:46 08/22/16 05:11 99 08/22/16 01:00 08/22/16 00:15 92 08/22/16 00:00 08/21/16 22:16 08/21/16 22:00 08/21/16 21:32 95 08/21/16 19:59 93 08/21/16 19:07 08/21/16 17:10 96 - Physical Examination General: No Apparent Distress HEENT: Positive: PERRL Neck: Positive: neck supple Cardiac: Positive: Reg Rate and Rhythm Lungs: Positive: Decreased Breath Sounds Neuro: Positive: Grossly Intact - Imaging and Cardiology EKG: image reviewed
--- NOTE | 2016-08-22 17:50 | Progress Note ---
Assessment and Plan - Patient Problems (1) CHF (congestive heart failure) Current Visit: Yes Status: Acute Qualifiers: Congestive heart failure type: C Congestive heart failure chronicity: C Plan to address problem: Cardiology team consulted, CHf Protocol: Fluid restriction, sodium restriction, afterload reduction, diuresis, daily weight, telemetry (2) Substance abuse Current Visit: Yes Status: Acute Plan to address problem: Pt counseled (3) Metabolic syndrome Current Visit: Yes Status: Acute Plan to address problem: PT counseled (4) Chest pain Current Visit: Yes Status: Acute Qualifiers: Chest pain type: C Plan to address problem: chest pain protocol, cardiology team consulted, telemetry, (5) Uncontrolled diabetes mellitus Current Visit: No Status: Acute Qualifiers: Diabetes mellitus type: D Diabetes mellitus complication status: D Diabetes mellitus complication detail: D Diabetic retinopathy severity: D Diabetes mellitus macular edema: D Diabetes mellitus half-way insulin use: D Chronic kidney disease stage: C Plan to address problem: ADA diet, insulin, accu check (6) DVT prophylaxis Current Visit: Yes Status: Acute History Interval history: Pt resting in bed, Pt states that he still feels swollen. Pt denies CP, Palpitations, NVD. No reported nursing events. Hospitalist Physical - Constitutional Vitals: Temp Pulse Resp BP Pulse Ox 98.0 F 88 20 174/107 92 08/22/16 17:22 08/22/16 17:22 08/22/16 17:22 08/22/16 17:22 08/22/16 17:22 General appearance: Present: no acute distress, obese - EENT Eyes: Present: PERRL, EOM intact ENT: hearing intact - Neck Neck: Present: supple - Respiratory Respiratory: bilateral: diminished - Cardiovascular Rhythm: regular Heart Sounds: Present: S1 & S2 - Extremities Extremities: no ischemia Extremity abnormal: edema Peripheral Pulses: within normal limits - Abdominal General gastrointestinal: soft, non-tender, non-distended - Integumentary Integumentary: Present: clear, dry - Psychiatric Psychiatric: appropriate mood/affect, cooperative - Neurologic Neurologic: CNII-XII intact Results - Labs CBC & Chem 7: 08/21/16 03:26 08/21/16 03:26 Labs: Laboratory Last Values WBC 8.2 K/mm3 (4.5-11.0) 08/21/16 03:26 RBC 5.58 M/mm3 (3.65-5.03) H 08/21/16 03:26 Hgb 16.1 gm/dl (11.8-15.2) H 08/21/16 03:26 Hct 48.5 % (35.5-45.6) H 08/21/16 03:26 MCV 87 fl (84-94) 08/21/16 03:26 MCH 29 pg (28-32) 08/21/16 03:26 MCHC 33 % (32-34) 08/21/16 03:26 RDW 15.1 % (13.2-15.2) 08/21/16 03:26 Plt Count 207 K/mm3 (140-440) 08/21/16 03:26 Lymph % (Auto) 19.8 % (13.4-35.0) 08/21/16 03:26 [place] % (Auto) 10.1 % (0.0-7.3) H 08/21/16 03:26 Eos % (Auto) 1.9 % (0.0-4.3) 08/21/16 03:26 Baso % (Auto) 0.2 % (0.0-1.8) 08/21/16 03:26 Lymph # 1.6 K/mm3 (1.2-5.4) 08/21/16 03:26 [place] # 0.8 K/mm3 (0.0-0.8) 08/21/16 03:26 Eos # 0.2 K/mm3 (0.0-0.4) 08/21/16 03:26 Baso # 0.0 K/mm3 (0.0-0.1) 08/21/16 03:26 Seg Neutrophils % 68.0 % (40.0-70.0) 08/21/16 03:26 Seg Neutrophils # 5.6 K/mm3 (1.8-7.7) 08/21/16 03:26 Sodium 139 mmol/L (137-145) 08/21/16 03:26 Potassium 3.9 mmol/L (3.6-5.0) 08/21/16 03:26 Chloride 99.2 mmol/L (98-107) 08/21/16 03:26 Carbon Dioxide 30 mmol/L (22-30) 08/21/16 03:26 Anion Gap 14 mmol/L 08/21/16 03:26 BUN 14 mg/dL (9-20) 08/21/16 03:26 Creatinine 1.4 mg/dL (0.8-1.5) 08/21/16 03:26 Estimated GFR > 60 ml/min 08/21/16 03:26 BUN/Creatinine Ratio 10.00 % 08/21/16 03:26 Glucose 332 mg/dL (75-100) H 08/21/16 03:26 POC Glucose 235 (70-105) H 08/22/16 12:05 Calcium 8.1 mg/dL (8.4-10.2) L 08/21/16 03:26 Total Creatine Kinase 879 units/L (55-170) H 08/21/16 12:47 CK-MB (CK-2) 9.9 ng/mL (0.0-4.0) H 08/21/16 12:47 CK-MB (CK-2) Rel Index 1.1 (0-4) 08/21/16 12:47 Troponin T 0.014 ng/mL (0.00-0.029) 08/21/16 12:47 NT-Pro-B Natriuret Pep 4225 pg/mL (0-900) H 08/21/16 00:16 Urine Opiates Screen Presumptive negative 08/20/16 22:50 Urine Methadone Screen Presumptive negative 08/20/16 22:50 Ur Barbiturates Screen Presumptive negative 08/20/16 22:50 Ur Phencyclidine Scrn Presumptive negative 08/20/16 22:50 Ur Amphetamines Screen Presumptive negative 08/20/16 22:50 U Benzodiazepines Scrn Presumptive negative 08/20/16 22:50 Urine Cocaine Screen Presumptive positive 08/20/16 22:50 U Marijuana (THC) Screen Presumptive negative 08/20/16 22:50 Drugs of Abuse Note Disclamer 08/20/16 22:50
[2016-08-22] MEDS: APRESOLINE IV PRN (18:16)
[2016-08-23] MEDS: PERCOCET 5/325 PO PRN ×2 (05:41→13:20)
[2016-08-23] MEDS: LASIX IV SCH (05:42)
[2016-08-23] MEDS: NOVOLOG SUB-Q SCH ×2 (08:13→18:19)
[2016-08-23] MEDS ORDERED: LEXISCAN IV ONE ×2 (11:48→11:53)
[2016-08-23] MEDS: COREG PO SCH (13:30)
[2016-08-23] MEDS: BABY ASPIRIN PO SCH (13:30)
[2016-08-23] MEDS: ZESTRIL PO SCH (13:30)
--- NOTE | 2016-08-23 14:23 | Discharge Summary ---
Providers - Providers Date of Admission: 08/20/16 23:52 Date of discharge: 08/23/16 Attending physician: TRELL TAMEZ 08/21/16 06:58 Consult to Physician [CONS] Routine Consulting Provider: MARCELLO ARAGON Reason For Exam: chf/cp Notified:: press secretary pl call Primary care physician: EVENT SPECIALIST PRODUCT DEMONSTRATOR Hospitalization Condition: Stable Pertinent studies: Echocardiogram ejection fraction 20-25%. Stress thallium unremarkable. Hospital course: Patient presents with a chief complaint of shortness of breath diffusion exertion found to be in acute congestive heart failure. Placed on afterload senior ruby developer diuretic therapy beta ned and do well. He should watch less short of breath. Patient educated about compliance which seems to be the primary reason patient was in failure. Patient informing him to walk without much difficulty. Patient hospital course was also complicated by malignant hypertension which is diastolic head did not to want to. Patient was explained that the medications this is on 1 control his blood pressure in changes will have to be made patient understands. Patient also has obstructive sleep apnea in which she will have a follow-up with pulmonology. Dr. Jordan. This pain resolved in diabetes is much better control with medications are taken appropriately. Patient states he needs to go home today and will sign out AMA regardless. Disposition: DISCHARGED TO HOME OR SELFCARE - Discharge Diagnoses (1) Hypertension associated with diabetes Status: Acute Comment: She will malignant hypertension with CHF will continue injured cancer receptor ned continue beta ned and a low-dose calcium channel blockers will. Upon discharge. And also clonidine when necessary. (2) CHF (congestive heart failure) Status: Acute Qualifiers: Congestive heart failure type: C Congestive heart failure chronicity: C Comment: Would afterload reduce her beta ned diuresis. Will be discharged with diuretic Lasix follow with Pending sale to [facility] to 4 weeks. (3) Chest pain Status: Acute Qualifiers: Chest pain type: C Comment: Resolved. For myocardial infarction (4) Diabetes Status: Acute Qualifiers: Diabetes mellitus type: D Diabetes mellitus complication status: D Diabetes mellitus complication detail: D Diabetic retinopathy severity: D Proliferative retinopathy type: P Diabetes mellitus macular edema: D Diabetes mellitus equipment operator intermodal yard insulin use: D Laterality: L Chronic kidney disease stage: C Comment: Fair control with compliance. (5) Metabolic syndrome Status: Acute Comment: Diet exercise and weight loss. (6) Pulmonary edema Status: Acute Qualifiers: Chronicity: C Comment: Secondary to congestive heart failure has resolved with diuresis. (7) Substance abuse Status: Acute (8) Obesity hypoventilation syndrome Status: Acute (9) Obesity hypoventilation syndrome Status: Acute Core Measure Documentation - Palliative Care Palliative Care/ Comfort Measures: Not Applicable - Core Measures Any of the following diagnoses?: heart failure - Heart Failure Discharge Requirements SOUTH/ARB for LVSD if EF <40%: Yes Beta ned at discharge: Yes Exam - Constitutional Vitals: Temp Pulse Resp BP Pulse Ox 98.5 F 94 H 24 185/142 98 08/23/16 13:30 08/23/16 13:30 08/23/16 13:30 08/23/16 13:30 08/23/16 13:30 General appearance: Present: no acute distress, other - EENT Eyes: Present: PERRL ENT: hearing intact, clear oral mucosa - Neck Neck: Present: supple, normal ROM - Respiratory Respiratory effort: normal Respiratory: bilateral: CTA - Cardiovascular Rhythm: regular Heart Sounds: Present: S1 & S2 - Extremities Extremities: pulses symmetrical, No edema - Abdominal General gastrointestinal: Present: soft, non-tender, non-distended, normal bowel sounds, other - Musculoskeletal Musculoskeletal: strength equal bilaterally - Psychiatric Psychiatric: appropriate mood/affect, intact judgment & insight - Neurologic Neurologic: CNII-XII intact, moves all extremities Plan Activity: no restrictions Weight Bearing Status: Full Weight Bearing Diet: low cholesterol, low salt Follow up with: PRIMARY CAREMD [Primary Care Provider] - 7 Days TRENT OAKES MD [Staff Physician] - 7 Days Prescriptions: amLODIPine [Norvasc] 10 mg PO QDAY #30 tablet Furosemide [Lasix TAB] 20 mg PO DAILY@0600 #30 tablet Furosemide [Lasix TAB] 40 mg PO DAILY@0600 #30 tablet Insulin Glargine [Lantus VIAL] 40 unit SUB-Q QHS #1 vial Insulin NPH/Regular [NovoLIN 70/30] 25 unit SQ BID #30 units Lisinopril [Zestril TAB] 40 mg PO QDAY #30 tablet oxyCODONE /ACETAMINOPHEN [Percocet 5/325 mg] 1 tab PO Q6H PRN #30 tablet PRN Reason: Pain, Moderate (4-6)
[2016-08-23 18:19] VITALS: BP 171/96
[2016-08-23] MEDS: LOVENOX SUB-Q SCH (18:19)
--- NOTE | 2016-08-23 18:19 | Progress Note ---
Assessment and Plan - Patient Problems (1) CHF (congestive heart failure) Current Visit: Yes Status: Acute Qualifiers: Congestive heart failure type: C Congestive heart failure chronicity: C Plan to address problem: Continue medical therapy for congestive heart failure and systolic dysfunction. Persantin thallium done today suggests a nonischemic cardiomyopathy, continue medical therapy. Subjective Date of service: 08/23/16 Interval history: The patient underwent a Persantine thallium stress test, which demonstrated a severe dilated cardiomyopathy, with no significant ischemic defects, suggesting a nonischemic cardiomyopathy. Objective Vital Signs Temp Pulse Pulse Resp Resp BP BP 08/23/16 13:30 98.5 F 94 H 24 185/142 08/23/16 12:16 89 134/101 08/23/16 12:15 91 H 184/120 08/23/16 12:14 93 H 184/120 08/23/16 12:13 93 H 184/121 08/23/16 12:12 94 H 186/118 08/23/16 12:11 96 H 197/101 08/23/16 12:01 85 197/110 08/23/16 07:38 08/23/16 07:30 98.2 F 84 24 178/111 08/23/16 05:41 20 08/23/16 05:20 98.7 F 89 24 159/104 08/23/16 01:51 98.3 F 92 H 20 148/90 08/22/16 22:02 90 20 159/93 08/22/16 22:00 91 H 20 18 08/22/16 21:25 98.4 F 90 20 156/93 Pulse Ox 08/23/16 13:30 98 08/23/16 12:16 08/23/16 12:15 08/23/16 12:14 08/23/16 12:13 08/23/16 12:12 08/23/16 12:11 08/23/16 12:01 08/23/16 07:38 100 08/23/16 07:30 08/23/16 05:41 08/23/16 05:20 94 08/23/16 01:51 97 08/22/16 22:02 08/22/16 22:00 08/22/16 21:25 96 - Physical Examination General: No Apparent Distress HEENT: Positive: PERRL Neck: Positive: neck supple Cardiac: Positive: Reg Rate and Rhythm Lungs: Positive: Decreased Breath Sounds Neuro: Positive: Grossly Intact Abdomen: Positive: Soft Skin: Positive: Clear Extremities: Absent: edema - Imaging and Cardiology EKG: image reviewed
--- NOTE | 2016-08-23 23:16 | Treadmill Report ---
THALLIUM STRESS TEST LEFT VENTRICLE: Left ventricle is severely dilated. There is a small fixed basal inferior defect, worse on the resting study, consistent with diaphragmatic attenuation artifact. There are no significant ischemic defects identified. Gated analysis demonstrates severe left ventricular systolic dysfunction, ejection fraction 17%. CONCLUSION: Evidence of a dilated cardiomyopathy, with severe left ventricular systolic dysfunction. Perfusion study demonstrates diaphragmatic attenuation artifact, otherwise well preserved uptake of the tracer in all segments. Study suggests a nonischemic cardiomyopathy. Clinical correlation is recommended. JOB# [id number] CA/NTS
[2016-08-24] MEDS ORDERED: LASIX PO SCH ×2 (06:00)
[2016-08-24] MEDS ORDERED: ZESTRIL PO SCH (10:00)
[2016-08-24] MEDS ORDERED: NORVASC PO SCH (10:00)
== END 2016-08-23 18:46 | disposition home or self-care (01) | DRG 292 ==
LOC: ED 20:46 → 4A 23:52
PROVIDERS: ADMIT Internal Medicine; ATTEND Internal Medicine
PROC: 3E0234Z Introduction of Serum, Toxoid and Vaccine into Muscle, Percutaneous Approach (ICD-10-PCS; principal; 2016-08-21)
DX: I11.0 Hypertensive heart disease with heart failure (principal); M62.82 Rhabdomyolysis; E66.2 Morbid (severe) obesity with alveolar hypoventilation; J81.1 Chronic pulmonary edema; Z68.41 Body mass index [BMI] 40.0-44.9, adult; I50.23 Acute on chronic systolic (congestive) heart failure; F19.10 Other psychoactive substance abuse, uncomplicated; E11.40 Type 2 diabetes mellitus with diabetic neuropathy, unspecified; J44.9 Chronic obstructive pulmonary disease, unspecified; E11.65 Type 2 diabetes mellitus with hyperglycemia; E88.81 Metabolic syndrome and other insulin resistance; Z88.0 Allergy status to penicillin; Z91.14 Patient's other noncompliance with medication regimen; Z91.11 Patient's noncompliance with dietary regimen; Z91.19 Patient's noncompliance with other medical treatment and regimen; Z72.89 Other problems related to lifestyle; Z82.49 Family history of ischemic heart disease and other diseases of the circulatory system; Z23 Encounter for immunization
CPT/HCPCS: 36415; 71010; 80048; 80307; 82550; 82553; 82962; 83880; 84484; 85025; 90686; 90732; 93005; 93010; 93017; 93306; 94760; 96374; J0360; J1650; J1815; J1940; J2785

== ENCOUNTER 2016-09-12 18:15 | Inpatient (IN) | payer OTHER ==
[2016-09-12 19:05] LABS: Urine Drugs of Abuse Note Disclamer
[2016-09-12 19:24] LABS: Bacteria,Urine 1+ /HPF (Negative); Bilirubin,Urine NEG (Negative); Blood,Urine SM (Negative); Ketones,Urine NEG (Negative); Leukocyte Esterase,Urine NEG (Negative); Mucus,Urine FEW /HPF; Nitrite,Urine NEG (Negative); Urobilinogen,Urine < 2.0 mg/dL (<2.0)
[2016-09-12 19:32] LABS: ISTAT Base Excess 2; ISTAT HCO3 28.3; ISTAT PCO2 57.9 (35-45); ISTAT PH 7.297 (7.35-7.45); ISTAT PO2 66 (80-105); ISTAT SO2 90; ISTAT TCO2 30
[2016-09-12 19:53] LABS: Basophils % (Auto) 1.5 % (0.0-1.8); Eosinophils % (Auto) 1.2 % (0.0-4.3); Hematocrit 53.6 % (35.5-45.6); Hemoglobin 17.9 gm/dl (11.8-15.2); Mean Corpuscular HGB Conc 33 % (32-34); Mean Corpuscular Hemoglobin 30 pg (28-32); Mean Corpuscular Volume 88 fl (84-94); Red Blood Count 6.08 M/mm3 (3.65-5.03); Red Cell Distribution Width 14.5 % (13.2-15.2); White Blood Count 6.7 K/mm3 (4.5-11.0)
[2016-09-12 19:57] LABS: Platelet Count 212 K/mm3 (140-440)
[2016-09-12 19:58] LABS: Albumin 3.6 g/dL (3.9-5); Albumin/Globulin Ratio 0.8 %; Alkaline Phosphatase 84 units/L (35-129); BUN/Creatinine Ratio 12.72; Bilirubin,Total 0.5 mg/dL (0.1-1.2); Blood Urea Nitrogen 14 mg/dL (9-20); Calcium 8.7 mg/dL (8.4-10.2); Carbon Dioxide 24 mmol/L (22-30); Glucose 270 mg/dL (75-100); Magnesium 2.2 mg/dL (1.7-2.3); Total Protein 8.1 g/dL (6.3-8.2)
[2016-09-12] MEDS ORDERED: NACL 0.9% 1000 ML 1,000 ML IV ONE (20:49)
[2016-09-12] MEDS ORDERED: CEPHULAC PO ONE (20:51)
[2016-09-12 21:12] LABS: Alanine Aminotransferase 36 units/L (7-56); Potassium 4.5 mmol/L (3.6-5.0)
[2016-09-12 21:29] LABS: Anion Gap 21 mmol/L; Chloride 97.4 mmol/L (98-107); Sodium 138 mmol/L (137-145)
[2016-09-12 21:44] LABS: ISTAT Base Excess 5; ISTAT HCO3 31.9; ISTAT PCO2 65.2 (35-45); ISTAT PH 7.298 (7.35-7.45); ISTAT PO2 100 (80-105); ISTAT SO2 97; ISTAT TCO2 34
--- NOTE | 2016-09-12 22:20 | Cat Scan Report ---
FINAL REPORT EXAM: CT HEAD/BRAIN WO CON HISTORY: ams/fall TECHNIQUE: Contiguous axial images of the head were obtained without the use of intravenous contrast. PRIORS: None. FINDINGS: The cerebral hemispheres are without focal lesions. There is no evidence of acute infarct or intracranial hemorrhage. There is no mass lesion or mass effect. There are no abnormal extra-axial fluid collections. The ventricles and sulci are prominent consistent with generalized loss of brain substance, appropriate for age. There is deep white matter lucency consistent with chronic microvascular ischemic disease. The visualized skull is unremarkable. There is an old right orbital floor fracture. The visualized paranasal sinuses are clear. IMPRESSION: 1. No evidence of acute infarct or intracranial hemorrhage. 2. White matter lucency consistent with chronic microvascular ischemic disease.
[2016-09-12] MEDS ORDERED: NORMODYNE IV ONE (22:21)
--- NOTE | 2016-09-12 22:26 | Cat Scan Report ---
FINAL REPORT EXAM: CT CERVICAL SPINE WO CON HISTORY: ams/fall TECHNIQUE: Helical axial CT imaging of the cervical spine. Images are reconstructed in the sagittal and coronal planes. PRIORS: None. FINDINGS: The vertebral bodies have normal height and alignment. There is no evidence of fracture or subluxation. The paraspinous soft tissues are unremarkable. IMPRESSION: No evidence of acute fracture or subluxation.
--- NOTE | 2016-09-12 22:31 | Emergency Department Report ---
ED Altered Mental Status HPI - General Chief Complaint: Altered Mental Status Stated Complaint: SYNCOPE Time Seen by Provider: 09/12/16 19:02 Source: patient Mode of arrival: Ambulatory Limitations: No Limitations - History of Present Illness Initial Comments: Oc is a 50-year-old male with a history of hypertension CHF diabetes and alcoholism who presents today with increasing somnolence, altered mental status , and frequent falls as reported by family. He shouldn't does drink every day last known drink was prior to arrival. She is a poor historian due to mental status cannot obtain any further information MD Complaint: altered mental status, confusion, intoxication -: week(s) Severity: moderate Context: alcohol abuse, history of similar presen Associated Symptoms: denies other symptoms - Related Data Home Medications Medication Instructions Recorded Confirmed Last Taken Carvedilol [Coreg] 25 mg PO BID 03/11/16 08/20/16 1 Day Ago 20 Potassium Chloride [K-Dur] 10 meq PO QDAY 03/11/16 08/20/16 1 Day Ago Previous Rx's Medication Instructions Recorded Last Taken Type Aspirin [Aspirin BABY CHEW TAB] 81 mg PO QDAY tab.chew 08/23/16 Unknown Rx Carvedilol [Coreg] 25 mg PO BID #60 tablet 08/23/16 Unknown Rx Furosemide [Lasix TAB] 20 mg PO DAILY@0600 #30 tablet 08/23/16 Unknown Rx Furosemide [Lasix TAB] 20 mg PO QAM #60 tablet 08/23/16 Unknown Rx Furosemide [Lasix TAB] 40 mg PO DAILY@0600 #30 tablet 08/23/16 Unknown Rx Insulin Glargine [Lantus VIAL] 40 unit SUB-Q QHS #1 vial 08/23/16 Unknown Rx Insulin NPH/Regular [NovoLIN 70/30] 25 unit SQ BID #30 units 08/23/16 Unknown Rx Lisinopril [Zestril TAB] 40 mg PO QDAY #30 tablet 08/23/16 Unknown Rx amLODIPine [Norvasc] 10 mg PO QDAY #30 tablet 08/23/16 Unknown Rx oxyCODONE /ACETAMINOPHEN [Percocet 1 tab PO Q6H PRN #30 tablet 08/23/16 Unknown Rx 5/325 mg] Allergies Allergy/AdvReac Type Severity Reaction Status Date / Time Penicillins Allergy Unknown Verified 06/08/15 07:28 ED Review of Systems ROS: Stated complaint: SYNCOPE Other details as noted in HPI Comment: Unobtainable due to pts medical conditions ED Past Medical Hx - Past Medical History Hx Hypertension: Yes Hx Congestive Heart Failure: Yes Hx Diabetes: Yes Hx Asthma: Yes - Social History Smoking Status: Former Smoker Substance Use Type: Alcohol - Medications Home Medications: Home Medications Medication Instructions Recorded Confirmed Last Taken Type Carvedilol [Coreg] 25 mg PO BID 03/11/16 08/20/16 1 Day Ago History 20 Potassium Chloride [K-Dur] 10 meq PO QDAY 03/11/16 08/20/16 1 Day Ago History Aspirin [Aspirin BABY CHEW TAB] 81 mg PO QDAY tab.chew 08/23/16 Unknown Rx Carvedilol [Coreg] 25 mg PO BID #60 tablet 08/23/16 Unknown Rx Furosemide [Lasix TAB] 20 mg PO DAILY@0600 #30 tablet 08/23/16 Unknown Rx Furosemide [Lasix TAB] 20 mg PO QAM #60 tablet 08/23/16 Unknown Rx Furosemide [Lasix TAB] 40 mg PO DAILY@0600 #30 tablet 08/23/16 Unknown Rx Insulin Glargine [Lantus VIAL] 40 unit SUB-Q QHS #1 vial 08/23/16 Unknown Rx Insulin NPH/Regular [NovoLIN 70/30] 25 unit SQ BID #30 units 08/23/16 Unknown Rx Lisinopril [Zestril TAB] 40 mg PO QDAY #30 tablet 08/23/16 Unknown Rx amLODIPine [Norvasc] 10 mg PO QDAY #30 tablet 08/23/16 Unknown Rx oxyCODONE /ACETAMINOPHEN [Percocet 1 tab PO Q6H PRN #30 tablet 08/23/16 Unknown Rx 5/325 mg] ED Physical Exam - General Limitations: No Limitations, Altered Mental Status General appearance: appears intoxicated, lethargic, other (patient is arousable and can answer questions and follow commands) - Head Head exam: Present: atraumatic, normocephalic - Eye Eye exam: Present: normal appearance - ENT ENT exam: Present: mucous membranes moist - Neck Neck exam: Present: normal inspection - Respiratory Respiratory exam: Present: normal lung sounds bilaterally, decreased breath sounds. Absent: respiratory distress - Cardiovascular Cardiovascular Exam: Present: regular rate, normal rhythm. Absent: systolic murmur, diastolic murmur, rubs, gallop - GI/Abdominal GI/Abdominal exam: Present: soft, normal bowel sounds - Extremities Exam Extremities exam: Present: normal inspection - Back Exam Back exam: Present: normal inspection - Neurological Exam Neurological exam: Present: CN II-XII intact, other (Somnolent, but easily arousable ) - Skin Skin exam: Present: warm, dry, intact, normal color. Absent: rash ED Course Vital Signs 09/12/16 09/12/16 09/12/16 18:26 18:50 18:51 Temperature 98.6 F Pulse Rate 83 Respiratory 16 Rate Blood Pressure 208/144 175/116 175/116 O2 Sat by Pulse 91 90 Oximetry 09/12/16 09/12/16 09/12/16 18:52 18:54 18:56 Temperature Pulse Rate 82 84 85 Respiratory 14 17 16 Rate Blood Pressure 175/116 175/116 175/116 O2 Sat by Pulse 95 92 94 Oximetry 09/12/16 09/12/16 09/12/16 18:58 19:00 19:04 Temperature Pulse Rate 82 84 Respiratory 19 21 16 Rate Blood Pressure 175/116 171/116 O2 Sat by Pulse 86 89 Oximetry 09/12/16 09/12/16 20:24 22:00 Temperature Pulse Rate 81 79 Respiratory 20 25 H Rate Blood Pressure 199/129 199/129 O2 Sat by Pulse 100 98 Oximetry - Lab Data Result diagrams: 09/12/16 18:56 09/12/16 18:56 Lab Results 09/12/16 09/12/16 09/12/16 Range/Units 18:56 18:56 18:56 WBC 6.7 (4.5-11.0) K/mm3 RBC 6.08 H (3.65-5.03) M/mm3 Hgb 17.9 H (11.8-15.2) gm/dl Hct 53.6 H (35.5-45.6) % MCV 88 (84-94) fl MCH 30 (28-32) pg MCHC 33 (32-34) % RDW 14.5 (13.2-15.2) % Plt Count 212 (140-440) K/mm3 Lymph % (Auto) 14.1 (13.4-35.0) % [place] % (Auto) 6.7 (0.0-7.3) % Eos % (Auto) 1.2 (0.0-4.3) % Baso % (Auto) 1.5 (0.0-1.8) % Lymph # 1.0 L (1.2-5.4) K/mm3 [place] # 0.5 (0.0-0.8) K/mm3 Eos # 0.1 (0.0-0.4) K/mm3 Baso # 0.1 (0.0-0.1) K/mm3 Seg Neutrophils % 76.5 H (40.0-70.0) % Seg Neutrophils # 5.2 (1.8-7.7) K/mm3 POC ABG pH (7.35-7.45) POC ABG pCO2 (35-45) POC ABG pO2 (80-105) POC ABG HCO3 POC ABG Total CO2 POC ABG O2 Sat POC ABG Base Excess FiO2 % Sodium 138 (137-145) mmol/L Potassium 4.5 (3.6-5.0) mmol/L Chloride 97.4 L (98-107) mmol/L Carbon Dioxide 24 (22-30) mmol/L Anion Gap 21 mmol/L BUN 14 (9-20) mg/dL Creatinine 1.1 (0.8-1.5) mg/dL Estimated GFR > 60 ml/min BUN/Creatinine Ratio 12.72 % Glucose 270 H (75-100) mg/dL Lactic Acid 1.1 (0.7-2.0) mmol/L Calcium 8.7 (8.4-10.2) mg/dL Magnesium 2.2 (1.7-2.3) mg/dL Total Bilirubin 0.5 (0.1-1.2) mg/dL AST 43 H (5-40) units/L ALT 36 (7-56) units/L Alkaline Phosphatase 84 (35-129) units/L Ammonia (25-60) umol/L Troponin T (0.00-0.029) ng/mL Total Protein 8.1 (6.3-8.2) g/dL Albumin 3.6 L (3.9-5) g/dL Albumin/Globulin Ratio 0.8 % TSH (0.270-4.200) mlU/mL Urine Color (Yellow) Urine Turbidity (Clear) Urine pH (5.0-7.0) Ur Specific [place] (1.003-1.030) Urine Protein (Negative) mg/dL Urine Glucose (UA) (Negative) mg/dL Urine Ketones (Negative) mg/dL Urine Blood (Negative) Urine Nitrite (Negative) Urine Bilirubin (Negative) Urine Urobilinogen (<2.0) mg/dL Ur Leukocyte Esterase (Negative) Urine WBC (Auto) (0.0-6.0) /HPF Urine RBC (Auto) (0.0-6.0) /HPF U Epithel Cells (Auto) (0-13.0) /HPF Urine Bacteria (Auto) (Negative) /HPF Hyaline Casts /LPF Urine Mucus /HPF Salicylates (2.8-20.0) mg/dL Urine Opiates Screen Urine Methadone Screen Acetaminophen (10.0-30.0) ug/mL Ur Barbiturates Screen Ur Phencyclidine Scrn Ur Amphetamines Screen U Benzodiazepines Scrn Urine Cocaine Screen U Marijuana (THC) Screen Drugs of Abuse Note Plasma/Serum Alcohol (0-0.07) gm% 09/12/16 09/12/16 09/12/16 Range/Units 18:56 18:56 18:56 WBC (4.5-11.0) K/mm3 RBC (3.65-5.03) M/mm3 Hgb (11.8-15.2) gm/dl Hct (35.5-45.6) % MCV (84-94) fl MCH (28-32) pg MCHC (32-34) % RDW (13.2-15.2) % Plt Count (140-440) K/mm3 Lymph % (Auto) (13.4-35.0) % [place] % (Auto) (0.0-7.3) % Eos % (Auto) (0.0-4.3) % Baso % (Auto) (0.0-1.8) % Lymph # (1.2-5.4) K/mm3 [place] # (0.0-0.8) K/mm3 Eos # (0.0-0.4) K/mm3 Baso # (0.0-0.1) K/mm3 Seg Neutrophils % (40.0-70.0) % Seg Neutrophils # (1.8-7.7) K/mm3 POC ABG pH (7.35-7.45) POC ABG pCO2 (35-45) POC ABG pO2 (80-105) POC ABG HCO3 POC ABG Total CO2 POC ABG O2 Sat POC ABG Base Excess FiO2 % Sodium (137-145) mmol/L Potassium (3.6-5.0) mmol/L Chloride (98-107) mmol/L Carbon Dioxide (22-30) mmol/L Anion Gap mmol/L BUN (9-20) mg/dL Creatinine (0.8-1.5) mg/dL Estimated GFR ml/min BUN/Creatinine Ratio % Glucose (75-100) mg/dL Lactic Acid (0.7-2.0) mmol/L Calcium (8.4-10.2) mg/dL Magnesium (1.7-2.3) mg/dL Total Bilirubin (0.1-1.2) mg/dL AST (5-40) units/L ALT (7-56) units/L Alkaline Phosphatase (35-129) units/L Ammonia (25-60) umol/L Troponin T (0.00-0.029) ng/mL Total Protein (6.3-8.2) g/dL Albumin (3.9-5) g/dL Albumin/Globulin Ratio % TSH 4.310 H (0.270-4.200) mlU/mL Urine Color (Yellow) Urine Turbidity (Clear) Urine pH (5.0-7.0) Ur Specific [place] (1.003-1.030) Urine Protein (Negative) mg/dL Urine Glucose (UA) (Negative) mg/dL Urine Ketones (Negative) mg/dL Urine Blood (Negative) Urine Nitrite (Negative) Urine Bilirubin (Negative) Urine Urobilinogen (<2.0) mg/dL Ur Leukocyte Esterase (Negative) Urine WBC (Auto) (0.0-6.0) /HPF Urine RBC (Auto) (0.0-6.0) /HPF U Epithel Cells (Auto) (0-13.0) /HPF Urine Bacteria (Auto) (Negative) /HPF Hyaline Casts /LPF Urine Mucus /HPF Salicylates < 0.3 L (2.8-20.0) mg/dL Urine Opiates Screen Urine Methadone Screen Acetaminophen < 15.0 (10.0-30.0) ug/mL Ur Barbiturates Screen Ur Phencyclidine Scrn Ur Amphetamines Screen U Benzodiazepines Scrn Urine Cocaine Screen U Marijuana (THC) Screen Drugs of Abuse Note Plasma/Serum Alcohol (0-0.07) gm% 09/12/16 09/12/16 09/12/16 Range/Units 18:56 19:00 19:00 WBC (4.5-11.0) K/mm3 RBC (3.65-5.03) M/mm3 Hgb (11.8-15.2) gm/dl Hct (35.5-45.6) % MCV (84-94) fl MCH (28-32) pg MCHC (32-34) % RDW (13.2-15.2) % Plt Count (140-440) K/mm3 Lymph % (Auto) (13.4-35.0) % [place] % (Auto) (0.0-7.3) % Eos % (Auto) (0.0-4.3) % Baso % (Auto) (0.0-1.8) % Lymph # (1.2-5.4) K/mm3 [place] # (0.0-0.8) K/mm3 Eos # (0.0-0.4) K/mm3 Baso # (0.0-0.1) K/mm3 Seg Neutrophils % (40.0-70.0) % Seg Neutrophils # (1.8-7.7) K/mm3 POC ABG pH (7.35-7.45) POC ABG pCO2 (35-45) POC ABG pO2 (80-105) POC ABG HCO3 POC ABG Total CO2 POC ABG O2 Sat POC ABG Base Excess FiO2 % Sodium (137-145) mmol/L Potassium (3.6-5.0) mmol/L Chloride (98-107) mmol/L Carbon Dioxide (22-30) mmol/L Anion Gap mmol/L BUN (9-20) mg/dL Creatinine (0.8-1.5) mg/dL Estimated GFR ml/min BUN/Creatinine Ratio % Glucose (75-100) mg/dL Lactic Acid (0.7-2.0) mmol/L Calcium (8.4-10.2) mg/dL Magnesium (1.7-2.3) mg/dL Total Bilirubin (0.1-1.2) mg/dL AST (5-40) units/L ALT (7-56) units/L Alkaline Phosphatase (35-129) units/L Ammonia (25-60) umol/L Troponin T (0.00-0.029) ng/mL Total Protein (6.3-8.2) g/dL Albumin (3.9-5) g/dL Albumin/Globulin Ratio % TSH (0.270-4.200) mlU/mL Urine Color Yellow (Yellow) Urine Turbidity Clear (Clear) Urine pH 5.0 (5.0-7.0) Ur Specific [place] 1.025 (1.003-1.030) Urine Protein 100 mg/dl (Negative) mg/dL Urine Glucose (UA) >=500 (Negative) mg/dL Urine Ketones Neg (Negative) mg/dL Urine Blood Sm (Negative) Urine Nitrite Neg (Negative) Urine Bilirubin Neg (Negative) Urine Urobilinogen < 2.0 (<2.0) mg/dL Ur Leukocyte Esterase Neg (Negative) Urine WBC (Auto) 7.0 H (0.0-6.0) /HPF Urine RBC (Auto) 2.0 (0.0-6.0) /HPF U Epithel Cells (Auto) 1.0 (0-13.0) /HPF Urine Bacteria (Auto) 1+ (Negative) /HPF Hyaline Casts 4 /LPF Urine Mucus Few /HPF Salicylates (2.8-20.0) mg/dL Urine Opiates Screen Presumptive positive Urine Methadone Screen Presumptive negative Acetaminophen (10.0-30.0) ug/mL Ur Barbiturates Screen Presumptive negative Ur Phencyclidine Scrn Presumptive negative Ur Amphetamines Screen Presumptive negative U Benzodiazepines Scrn Presumptive negative Urine Cocaine Screen Presumptive positive U Marijuana (THC) Screen Presumptive negative Drugs of Abuse Note Disclamer Plasma/Serum Alcohol < 0.01 (0-0.07) gm% 09/12/16 09/12/16 09/12/16 Range/Units 19:14 19:23 21:08 WBC (4.5-11.0) K/mm3 RBC (3.65-5.03) M/mm3 Hgb (11.8-15.2) gm/dl Hct (35.5-45.6) % MCV (84-94) fl MCH (28-32) pg MCHC (32-34) % RDW (13.2-15.2) % Plt Count (140-440) K/mm3 Lymph % (Auto) (13.4-35.0) % [place] % (Auto) (0.0-7.3) % Eos % (Auto) (0.0-4.3) % Baso % (Auto) (0.0-1.8) % Lymph # (1.2-5.4) K/mm3 [place] # (0.0-0.8) K/mm3 Eos # (0.0-0.4) K/mm3 Baso # (0.0-0.1) K/mm3 Seg Neutrophils % (40.0-70.0) % Seg Neutrophils # (1.8-7.7) K/mm3 POC ABG pH 7.297 L (7.35-7.45) POC ABG pCO2 57.9 H (35-45) POC ABG pO2 66 L (80-105) POC ABG HCO3 28.3 POC ABG Total CO2 30 POC ABG O2 Sat 90 POC ABG Base Excess 2 FiO2 28 % Sodium (137-145) mmol/L Potassium (3.6-5.0) mmol/L Chloride (98-107) mmol/L Carbon Dioxide (22-30) mmol/L Anion Gap mmol/L BUN (9-20) mg/dL Creatinine (0.8-1.5) mg/dL Estimated GFR ml/min BUN/Creatinine Ratio % Glucose (75-100) mg/dL Lactic Acid 1.0 (0.7-2.0) mmol/L Calcium (8.4-10.2) mg/dL Magnesium (1.7-2.3) mg/dL Total Bilirubin (0.1-1.2) mg/dL AST (5-40) units/L ALT (7-56) units/L Alkaline Phosphatase (35-129) units/L Ammonia 77.0 H (25-60) umol/L Troponin T (0.00-0.029) ng/mL Total Protein (6.3-8.2) g/dL Albumin (3.9-5) g/dL Albumin/Globulin Ratio % TSH (0.270-4.200) mlU/mL Urine Color (Yellow) Urine Turbidity (Clear) Urine pH (5.0-7.0) Ur Specific [place] (1.003-1.030) Urine Protein (Negative) mg/dL Urine Glucose (UA) (Negative) mg/dL Urine Ketones (Negative) mg/dL Urine Blood (Negative) Urine Nitrite (Negative) Urine Bilirubin (Negative) Urine Urobilinogen (<2.0) mg/dL Ur Leukocyte Esterase (Negative) Urine WBC (Auto) (0.0-6.0) /HPF Urine RBC (Auto) (0.0-6.0) /HPF U Epithel Cells (Auto) (0-13.0) /HPF Urine Bacteria (Auto) (Negative) /HPF Hyaline Casts /LPF Urine Mucus /HPF Salicylates (2.8-20.0) mg/dL Urine Opiates Screen Urine Methadone Screen Acetaminophen (10.0-30.0) ug/mL Ur Barbiturates Screen Ur Phencyclidine Scrn Ur Amphetamines Screen U Benzodiazepines Scrn Urine Cocaine Screen U Marijuana (THC) Screen Drugs of Abuse Note Plasma/Serum Alcohol (0-0.07) gm% 09/12/16 09/12/16 Range/Units 21:08 21:32 WBC (4.5-11.0) K/mm3 RBC (3.65-5.03) M/mm3 Hgb (11.8-15.2) gm/dl Hct (35.5-45.6) % MCV (84-94) fl MCH (28-32) pg MCHC (32-34) % RDW (13.2-15.2) % Plt Count (140-440) K/mm3 Lymph % (Auto) (13.4-35.0) % [place] % (Auto) (0.0-7.3) % Eos % (Auto) (0.0-4.3) % Baso % (Auto) (0.0-1.8) % Lymph # (1.2-5.4) K/mm3 [place] # (0.0-0.8) K/mm3 Eos # (0.0-0.4) K/mm3 Baso # (0.0-0.1) K/mm3 Seg Neutrophils % (40.0-70.0) % Seg Neutrophils # (1.8-7.7) K/mm3 POC ABG pH 7.298 L (7.35-7.45) POC ABG pCO2 65.2 H (35-45) POC ABG pO2 100 (80-105) POC ABG HCO3 31.9 POC ABG Total CO2 34 POC ABG O2 Sat 97 POC ABG Base Excess 5 FiO2 50 % Sodium (137-145) mmol/L Potassium (3.6-5.0) mmol/L Chloride (98-107) mmol/L Carbon Dioxide (22-30) mmol/L Anion Gap mmol/L BUN (9-20) mg/dL Creatinine (0.8-1.5) mg/dL Estimated GFR ml/min BUN/Creatinine Ratio % Glucose (75-100) mg/dL Lactic Acid (0.7-2.0) mmol/L Calcium (8.4-10.2) mg/dL Magnesium (1.7-2.3) mg/dL Total Bilirubin (0.1-1.2) mg/dL AST (5-40) units/L ALT (7-56) units/L Alkaline Phosphatase (35-129) units/L Ammonia (25-60) umol/L Troponin T < 0.010 (0.00-0.029) ng/mL Total Protein (6.3-8.2) g/dL Albumin (3.9-5) g/dL Albumin/Globulin Ratio % TSH (0.270-4.200) mlU/mL Urine Color (Yellow) Urine Turbidity (Clear) Urine pH (5.0-7.0) Ur Specific [place] (1.003-1.030) Urine Protein (Negative) mg/dL Urine Glucose (UA) (Negative) mg/dL Urine Ketones (Negative) mg/dL Urine Blood (Negative) Urine Nitrite (Negative) Urine Bilirubin (Negative) Urine Urobilinogen (<2.0) mg/dL Ur Leukocyte Esterase (Negative) Urine WBC (Auto) (0.0-6.0) /HPF Urine RBC (Auto) (0.0-6.0) /HPF U Epithel Cells (Auto) (0-13.0) /HPF Urine Bacteria (Auto) (Negative) /HPF Hyaline Casts /LPF Urine Mucus /HPF Salicylates (2.8-20.0) mg/dL Urine Opiates Screen Urine Methadone Screen Acetaminophen (10.0-30.0) ug/mL Ur Barbiturates Screen Ur Phencyclidine Scrn Ur Amphetamines Screen U Benzodiazepines Scrn Urine Cocaine Screen U Marijuana (THC) Screen Drugs of Abuse Note Plasma/Serum Alcohol (0-0.07) gm% - EKG Data -: EKG Interpreted by Me EKG shows normal: sinus rhythm, axis (borderline LAD), QRS complexes ( incomoplete LBBB), ST-T waves (TWI in V5V6, no STEMI) Rate: normal (83 bpm) - Medical Decision Making Patient's ABG was reviewed patient is hypoxic and in adequately ventilating patient placed on BiPAP Critical care attestation.: If time is entered above; I have spent that time in minutes in the direct care of this critically ill patient, excluding procedure time. ED Disposition Clinical Impression: Hypoxia, Altered mental state, Alcoholism /alcohol abuse Disposition: OP ADMITTED IP TO THIS HOSP Is pt being admited?: Yes Condition: Stable
[2016-09-12] MEDS ORDERED: ZOFRAN IV PRN (23:35)
[2016-09-12] MEDS ORDERED: MILK OF MAGNESIA PO PRN (23:35)
[2016-09-12] MEDS ORDERED: PROVENTIL IH PRN (23:35)
[2016-09-12] MEDS ORDERED: DULCOLAX PR PRN (23:35)
[2016-09-12] MEDS ORDERED: TYLENOL PO PRN (23:35)
--- NOTE | 2016-09-12 23:39 | History and Physical Report ---
History of Present Illness Date of examination: 09/12/16 History of present illness: 50 year-old man with a history of CHF, hypertension, diabetes complicated by neuropathy, substance abuse comes emergency room with complaints of shortness breath, dyspnea on exertion, lower extremity edema, PND. Patient stated that his Lasix was increased 3 days to 20 mg twice a day. Also state that he has been feeling very dizzy and had a syncopal episode yesterday. So unclear how long he passed out for. Complaining of cough productive of white phlegm. Per the emergency room physician, the patient was altered on arrival, he was placed on BiPAP, patient is now awake, off BiPAP and coherent. Patient denies chest pain, palpitation, cough, abdominal pain, hematochezia, dysuria, frequency, focal weakness, dysarthria, fever chills, polydipsia polyuria, hot or cold intolerance, easy bruisability, or rash or bleeding from mucosal membrane, rhinorrhea, epistaxis, earache, tinnitus, blurry vision, eye discharge, anxiety, depression. Other review of systems negative PAST SURGICAL HISTORY: None SOCIAL HISTORY: Alcohol and cocaine use , no tobacco FAMILY HISTORY: Hypertension Medications and Allergies Allergies Allergy/AdvReac Type Severity Reaction Status Date / Time Penicillins Allergy Unknown Verified 06/08/15 07:28 Home Medications Medication Instructions Recorded Confirmed Last Taken Type Carvedilol [Coreg] 25 mg PO BID 03/11/16 08/20/16 1 Day Ago History 20 Potassium Chloride [K-Dur] 10 meq PO QDAY 03/11/16 08/20/16 1 Day Ago History Aspirin [Aspirin BABY CHEW TAB] 81 mg PO QDAY tab.chew 08/23/16 Unknown Rx Carvedilol [Coreg] 25 mg PO BID #60 tablet 08/23/16 Unknown Rx Furosemide [Lasix TAB] 20 mg PO DAILY@0600 #30 tablet 08/23/16 Unknown Rx Furosemide [Lasix TAB] 20 mg PO QAM #60 tablet 08/23/16 Unknown Rx Furosemide [Lasix TAB] 40 mg PO DAILY@0600 #30 tablet 08/23/16 Unknown Rx Insulin Glargine [Lantus VIAL] 40 unit SUB-Q QHS #1 vial 08/23/16 Unknown Rx Insulin NPH/Regular [NovoLIN 70/30] 25 unit SQ BID #30 units 08/23/16 Unknown Rx Lisinopril [Zestril TAB] 40 mg PO QDAY #30 tablet 08/23/16 Unknown Rx amLODIPine [Norvasc] 10 mg PO QDAY #30 tablet 08/23/16 Unknown Rx oxyCODONE /ACETAMINOPHEN [Percocet 1 tab PO Q6H PRN #30 tablet 08/23/16 Unknown Rx 5/325 mg] Active Meds: Active Medications Acetaminophen (Tylenol) 650 mg PO Q4H PRN PRN Reason: Pain MILD(1-3)/Fever >100.5/PARIS Albuterol (Proventil) 2.5 mg IH Q3HRT PRN PRN Reason: Shortness Of Breath Bisacodyl (Dulcolax) 10 mg MN QDAY PRN PRN Reason: Constipation unrelieved by MOM Enoxaparin Sodium (Lovenox) 30 mg SUB-Q QDAY ROXANA Magnesium Hydroxide (Milk Of Magnesia) 30 ml PO Q4H PRN PRN Reason: Constipation Ondansetron HCl (Zofran) 4 mg IV Q8H PRN PRN Reason: N/V unrelieved by Reglan Oxycodone/Acetaminophen (Percocet 5/325) 1 tab PO Q6H PRN PRN Reason: Pain, Moderate (4-6) Exam - Physical Exam Narrative exam: Gen. appearance: Patient lying in bed, no apparent distress HEENT: Normocephalic, atraumatic, pupils equally round and reactive to light, extraocular movement intact, and no sclericterus,. No JVD or thyromegaly or nodule,neck supple, no carotid bruit ,mucous membranes moist, no exudate or erythema Heart: S1, S2, regular rate and rhythm Lungs: Crackles bilaterally, breathing comfortable Abdomen: Positive bowel sounds, nontender, nondistended, no organomegaly Extremity: Positive edema, no cyanosis, clubbing Skin: No rash, nodules, warm, dry Neuro: Oriented 3, cranial nerves II-12 intact, speech is fluent, motor and sensory intact - Constitutional Vitals: Temp Pulse Resp BP Pulse Ox 98.6 F 79 25 H 199/129 98 09/12/16 18:26 09/12/16 22:00 09/12/16 22:00 09/12/16 22:00 09/12/16 22:00 Results - Labs CBC & Chem 7: 09/12/16 18:56 09/12/16 18:56 Labs: Abnormal lab results 09/12/16 09/12/16 09/12/16 Range/Units 18:56 18:56 18:56 RBC 6.08 H (3.65-5.03) M/mm3 Hgb 17.9 H (11.8-15.2) gm/dl Hct 53.6 H (35.5-45.6) % Lymph # 1.0 L (1.2-5.4) K/mm3 Seg Neutrophils % 76.5 H (40.0-70.0) % POC ABG pH (7.35-7.45) POC ABG pCO2 (35-45) POC ABG pO2 (80-105) Chloride 97.4 L (98-107) mmol/L Glucose 270 H (75-100) mg/dL AST 43 H (5-40) units/L Ammonia (25-60) umol/L Albumin 3.6 L (3.9-5) g/dL TSH 4.310 H (0.270-4.200) mlU/mL Urine WBC (Auto) (0.0-6.0) /HPF Salicylates (2.8-20.0) mg/dL 09/12/16 09/12/16 09/12/16 Range/Units 18:56 19:00 19:14 RBC (3.65-5.03) M/mm3 Hgb (11.8-15.2) gm/dl Hct (35.5-45.6) % Lymph # (1.2-5.4) K/mm3 Seg Neutrophils % (40.0-70.0) % POC ABG pH (7.35-7.45) POC ABG pCO2 (35-45) POC ABG pO2 (80-105) Chloride (98-107) mmol/L Glucose (75-100) mg/dL AST (5-40) units/L Ammonia 77.0 H (25-60) umol/L Albumin (3.9-5) g/dL TSH (0.270-4.200) mlU/mL Urine WBC (Auto) 7.0 H (0.0-6.0) /HPF Salicylates < 0.3 L (2.8-20.0) mg/dL 09/12/16 09/12/16 Range/Units 19:23 21:32 RBC (3.65-5.03) M/mm3 Hgb (11.8-15.2) gm/dl Hct (35.5-45.6) % Lymph # (1.2-5.4) K/mm3 Seg Neutrophils % (40.0-70.0) % POC ABG pH 7.297 L 7.298 L (7.35-7.45) POC ABG pCO2 57.9 H 65.2 H (35-45) POC ABG pO2 66 L (80-105) Chloride (98-107) mmol/L Glucose (75-100) mg/dL AST (5-40) units/L Ammonia (25-60) umol/L Albumin (3.9-5) g/dL TSH (0.270-4.200) mlU/mL Urine WBC (Auto) (0.0-6.0) /HPF Salicylates (2.8-20.0) mg/dL - Imaging and Cardiology EKG: image reviewed Chest x-ray: image reviewed Assessment and Plan CHF exacerbation, acute on chronic diastolic Syncope Hypertension Diabetes complicated by neuropathy Substance abuse Admits medicine Start diuresis with IV Lasix Start Beta ned, SOUTH inhibitor, aspirin Check cardiac enzymes,recent echo done Check CT chest, rule out PE Check fingersticks and initiate insulin sliding scale Start DVT prophylaxis CT down, check d-dimer
--- NOTE | 2016-09-12 23:53 | XRay Report ---
FINAL REPORT EXAM: XR CHEST 1V AP HISTORY: shortness of breath TECHNIQUE: AP portable view of the chest. PRIORS: None. FINDINGS: The cardiac silhouette is enlarged and there is prominence of the central pulmonary vascularity. The lungs are hypo aerated. There are mild bilateral patchy airspace infiltrates. The bones and soft tissues are unremarkable. IMPRESSION: Findings are most consistent with acute CHF
[2016-09-13] MEDS ORDERED: NORMODYNE IV ONE (00:02)
[2016-09-13 01:09] LABS: Creatine Kinase 806 units/L (55-170)
[2016-09-13] MEDS: LASIX IV SCH ×2 (06:00→17:13)
[2016-09-13 06:44] LABS: Basophils % (Auto) 0.8 % (0.0-1.8); Eosinophils % (Auto) 0.6 % (0.0-4.3); Hematocrit 47.6 % (35.5-45.6); Hemoglobin 15.7 gm/dl (11.8-15.2); Mean Corpuscular HGB Conc 33 % (32-34); Mean Corpuscular Hemoglobin 29 pg (28-32); Mean Corpuscular Volume 87 fl (84-94); Platelet Count 192 K/mm3 (140-440); Red Blood Count 5.45 M/mm3 (3.65-5.03); Red Cell Distribution Width 14.5 % (13.2-15.2); White Blood Count 6.9 K/mm3 (4.5-11.0)
[2016-09-13 07:03] LABS: Anion Gap 15 mmol/L; Blood Urea Nitrogen 14 mg/dL (9-20); Calcium 8.1 mg/dL (8.4-10.2); Carbon Dioxide 28 mmol/L (22-30); Chloride 99.2 mmol/L (98-107); Creatine Kinase MB 8.9 ng/mL (0.0-4.0); Glucose 204 mg/dL (75-100); Potassium 4.2 mmol/L (3.6-5.0); Sodium 138 mmol/L (137-145)
[2016-09-13 07:05] LABS: Creatine Kinase 624 units/L (55-170)
--- NOTE | 2016-09-13 09:27 | Progress Note ---
Assessment and Plan Assessment and plan: Patient is a 50-year-old man with a history of insulin-dependent diabetes mellitus, hypertension, CHF EF 20-25%, Nonischemic cardiomyopathy, diabetic peripheral neuropathy and substance abuse who presents with shortness of breath followed by syncopal episode. He called EMS because of shortness of breath and they came and left. Then he had shortness of breath again followed by a syncopal episode and his daughter brought him to [facility] emergency department. Patient was admitted from [facility] discharged on 08/22/2016. 2016 2D echocardiogram showed global left ventricular systolic severely decreased, estimated EF 2025 percent. Left atrium is moderately to severely dilated. There is mild mitral regurgitation. Trace TR without pulmonary hypertension. Trivial pericardial effusion. A stress thallium was unremarkable. Chest x-ray on this admission showing CHF. Urine drug screen is positive for cocaine and opiates. -Acute on chronic systolic heart failure: IV Diuresis bid and consulted cardiology. Also, add aspirin. Check lipids -Cocaine abuse: Counseling done to stop, patient voices understanding -Syncope episode, workup pending: Check carotid Dopplers, neurological checks -Insulin-dependent diabetes mellitus2 with htn: Continue present management/ lisinopril -DVT prophylaxis: Subcutaneous Lovenox History Interval history: Patient seen and examined. Follow up on shortness breath which is improved. Overnight uneventful. No cp, n/v or severe headaches. Imaging, old records, testing, labs, nursing notes reviewed. Plan discussed with patient. Hospitalist Physical - Physical exam Narrative exam: GEN: WDWN, NAD, AWAKE, ALERT, ORIENTATED 3 HEENT: NCAT, PERRL, EOMI, OP CLEAR NECK: SUPPLE, NO THYROMEGALY, equivocal JVD, NO LAD CVS: RRR, NORMAL S1S2 LUNGS/CHEST: Bibasilar crackles, NORMAL CHEST EXPANSION B, GOOD AIR ENTRY B ABD: SOFT NTND, GBS, NO REBOUND OR GUARDING EXT/SKIN: NO SIGNIFICANT EDEMA MSK: FROM X 4 EXTREMITIES NEURO: CN 2-12 GROSSLY INTACT, NO new FOCAL DEFICITS PSY: Anxious - Constitutional Vitals: Temp Pulse Resp BP Pulse Ox 98.3 F 89 18 121/69 98 09/13/16 04:00 09/13/16 04:00 09/13/16 04:00 09/13/16 04:00 09/13/16 04:00 Results - Labs CBC & Chem 7: 09/13/16 06:03 09/13/16 06:03 Labs: Laboratory Last Values WBC 6.9 K/mm3 (4.5-11.0) 09/13/16 06:03 RBC 5.45 M/mm3 (3.65-5.03) H 09/13/16 06:03 Hgb 15.7 gm/dl (11.8-15.2) H 09/13/16 06:03 Hct 47.6 % (35.5-45.6) H D 09/13/16 06:03 MCV 87 fl (84-94) 09/13/16 06:03 MCH 29 pg (28-32) 09/13/16 06:03 MCHC 33 % (32-34) 09/13/16 06:03 RDW 14.5 % (13.2-15.2) 09/13/16 06:03 Plt Count 192 K/mm3 (140-440) 09/13/16 06:03 Lymph % (Auto) 20.6 % (13.4-35.0) 09/13/16 06:03 Burt % (Auto) 11.7 % (0.0-7.3) H 09/13/16 06:03 Eos % (Auto) 0.6 % (0.0-4.3) 09/13/16 06:03 Baso % (Auto) 0.8 % (0.0-1.8) 09/13/16 06:03 Lymph # 1.4 K/mm3 (1.2-5.4) 09/13/16 06:03 Burt # 0.8 K/mm3 (0.0-0.8) 09/13/16 06:03 Eos # 0.0 K/mm3 (0.0-0.4) 09/13/16 06:03 Baso # 0.1 K/mm3 (0.0-0.1) 09/13/16 06:03 Seg Neutrophils % 66.3 % (40.0-70.0) 09/13/16 06:03 Seg Neutrophils # 4.6 K/mm3 (1.8-7.7) 09/13/16 06:03 D-Dimer 211.35 ng/mlDDU (0-234) 09/13/16 07:02 POC ABG pH 7.298 (7.35-7.45) L 09/12/16 21:32 POC ABG pCO2 65.2 (35-45) H 09/12/16 21:32 POC ABG pO2 100 (80-105) 09/12/16 21:32 POC ABG HCO3 31.9 09/12/16 21:32 POC ABG Total CO2 34 09/12/16 21:32 POC ABG O2 Sat 97 09/12/16 21:32 POC ABG Base Excess 5 09/12/16 21:32 FiO2 50 % 09/12/16 21:32 Sodium 138 mmol/L (137-145) 09/13/16 06:03 Potassium 4.2 mmol/L (3.6-5.0) 09/13/16 06:03 Chloride 99.2 mmol/L (98-107) 09/13/16 06:03 Carbon Dioxide 28 mmol/L (22-30) 09/13/16 06:03 Anion Gap 15 mmol/L 09/13/16 06:03 BUN 14 mg/dL (9-20) 09/13/16 06:03 Creatinine 1.0 mg/dL (0.8-1.5) 09/13/16 06:03 Estimated GFR > 60 ml/min 09/13/16 06:03 BUN/Creatinine Ratio 14.00 % 09/13/16 06:03 Glucose 204 mg/dL (75-100) H 09/13/16 06:03 Lactic Acid 1.0 mmol/L (0.7-2.0) 09/12/16 21:08 Calcium 8.1 mg/dL (8.4-10.2) L 09/13/16 06:03 Magnesium 2.2 mg/dL (1.7-2.3) 09/12/16 18:56 Total Bilirubin 0.5 mg/dL (0.1-1.2) 09/12/16 18:56 AST 43 units/L (5-40) H 09/12/16 18:56 ALT 36 units/L (7-56) 09/12/16 18:56 Alkaline Phosphatase 84 units/L (35-129) 09/12/16 18:56 Ammonia 77.0 umol/L (25-60) H 09/12/16 19:14 Total Creatine Kinase 624 units/L (55-170) H 09/13/16 06:03 CK-MB (CK-2) 8.9 ng/mL (0.0-4.0) H 09/13/16 06:03 CK-MB (CK-2) Rel Index 1.4 (0-4) 09/13/16 06:03 Troponin T < 0.010 ng/mL (0.00-0.029) 09/13/16 06:03 Total Protein 8.1 g/dL (6.3-8.2) 09/12/16 18:56 Albumin 3.6 g/dL (3.9-5) L 09/12/16 18:56 Albumin/Globulin Ratio 0.8 % 09/12/16 18:56 TSH 4.310 mlU/mL (0.270-4.200) H 09/12/16 18:56 Urine Color Yellow (Yellow) 09/12/16 19:00 Urine Turbidity Clear (Clear) 09/12/16 19:00 Urine pH 5.0 (5.0-7.0) 09/12/16 19:00 Ur Specific [place] 1.025 (1.003-1.030) 09/12/16 19:00 Urine Protein 100 mg/dl mg/dL (Negative) 09/12/16 19:00 Urine Glucose (UA) >=500 mg/dL (Negative) 09/12/16 19:00 Urine Ketones Neg mg/dL (Negative) 09/12/16 19:00 Urine Blood Sm (Negative) 09/12/16 19:00 Urine Nitrite Neg (Negative) 09/12/16 19:00 Urine Bilirubin Neg (Negative) 09/12/16 19:00 Urine Urobilinogen < 2.0 mg/dL (<2.0) 09/12/16 19:00 Ur Leukocyte Esterase Neg (Negative) 09/12/16 19:00 Urine WBC (Auto) 7.0 /HPF (0.0-6.0) H 09/12/16 19:00 Urine RBC (Auto) 2.0 /HPF (0.0-6.0) 09/12/16 19:00 U Epithel Cells (Auto) 1.0 /HPF (0-13.0) 09/12/16 19:00 Urine Bacteria (Auto) 1+ /HPF (Negative) 09/12/16 19:00 Hyaline Casts 4 /LPF 09/12/16 19:00 Urine Mucus Few /HPF 09/12/16 19:00 Salicylates < 0.3 mg/dL (2.8-20.0) L 09/12/16 18:56 Urine Opiates Screen Presumptive positive 09/12/16 19:00 Urine Methadone Screen Presumptive negative 09/12/16 19:00 Acetaminophen < 15.0 ug/mL (10.0-30.0) 09/12/16 18:56 Ur Barbiturates Screen Presumptive negative 09/12/16 19:00 Ur Phencyclidine Scrn Presumptive negative 09/12/16 19:00 Ur Amphetamines Screen Presumptive negative 09/12/16 19:00 U Benzodiazepines Scrn Presumptive negative 09/12/16 19:00 Urine Cocaine Screen Presumptive positive 09/12/16 19:00 U Marijuana (THC) Screen Presumptive negative 09/12/16 19:00 Drugs of Abuse Note Disclamer 09/12/16 19:00 Plasma/Serum Alcohol < 0.01 gm% (0-0.07) 09/12/16 18:56 - Imaging and Cardiology Chest x-ray: report reviewed
[2016-09-13] MEDS: LOVENOX SUB-Q SCH (09:36)
[2016-09-13] MEDS: LOPRESSOR PO SCH ×2 (09:37→21:16)
[2016-09-13] MEDS: ZESTRIL PO SCH (09:37)
[2016-09-13] MEDS: ASPIRIN PO SCH (09:58)
[2016-09-13] MEDS: PERCOCET 5/325 PO PRN ×2 (10:05→18:15)
--- NOTE | 2016-09-13 10:22 | Admit Criteria Form ---
Admission Criteria Documentation: HEART FAILURE: COMMON COMPLICATIONS Clinical Indications for Inpatient Care (Place 'X' for any and all applicable criteria): Ongoing inpatient care may be indicated for heart failure with ANY ONE of the following (1)(2)(3)(4)(5): [ ]I. Ongoing need for care for primary condition requiring frequent therapy adjustments because of changes in cardiac function (eg, drug dosage changes for drugs that are renally metabolized) [ ]II. New-onset heart failure [ ]III. Heart failure with decreased urine output not responsive to attempts to optimize volume status [ ]IV. Acute cardiac ischemia causing or associated with failure [X]V. Complications of heart failure, including ANY ONE of the following: [ ]a) Pericardial effusion [ ]b) Symptomatic pleural effusion [ ]c) O2 saturation <90% or PO2 < 60 mm Hg (8.0 kPa) on room air or require baseline supplemental O2 [ ]d) Tachypnea [X]e) Dyspnea [ ]f) Syncope [X]g) Change in mental status [ ]h) Acute renal insufficiency that is severe (reduction of more than 50% in estimated glomerular filtration rate from baseline) or progressive reduction of more than 25% in estimated glomerular filtration rate from baseline, with creatinine continuing to rise) [ ]i) Hemodynamic instability [ ]j) Anasarca [ ]k) Clinically significant metabolic abnormalities due to heart failure (eg, new-onset metabolic acidosis) Extended stay beyond goal length of stay for primary condition may be needed until ALL of the following are present(1)(3): [ ]a) Stable and effective diuretic regimen established (or patient on stable dialysis regimen if in chronic renal failure) [ ]b) Breathing comfortably at rest [ ]c) Saturation of arterial oxygen greater than 90% or at acceptable baseline [ ]d) Pulmonary edema absent or improved [ ]e) Hemodynamic stability [ ]f) Volume status acceptable on oral medication [ ]g) Peripheral or sacral edema absent or improved [ ]h) Renal function stable and manageable at a lower level of care [ ]i) Complications (eg, pleural effusion) resolved or manageable at a lower level of care [ ]j) Patient or caregiver has received written discharge instructions or educational material addressing activity level, diet, discharge medications, follow-up appointment, weight monitoring, and what to do if symptoms worsen The original [employer] content created by [employer] has been revised. The portions of the content which have been revised are identified through the use of italic text or in bold, and [facility] has neither reviewed nor approved the modified material.All other unmodified content is copyright [facility]. Please see references footnoted in the original [facility] edition 2016 Admission Criteria Met: Yes
--- NOTE | 2016-09-13 11:18 | Consultation ---
History of Present Illness Consult date: 09/13/16 Consult reason: congestive heart failure History of present illness: The patient is a 50-year-old man with history of hypertension, diabetes, obstructive sleep apnea and dilated nonischemic cardiomyopathy. His most recent workup was done a month ago. A persantine stress thallium showed no ischemia. He had a decrease left ventricular ejection fraction 20-25% on echocardiogram. He receives his usual medical and cardiac care at [facility] and [place], but admits to poor compliance with medications and follow-up appointments. He presents to the hospital with syncope. Patient reports his daughter found him down on the floor with an alteration of his mental status. His ECG shows a normal sinus rhythm, no acute ischemic changes. Chest x-ray reports acute CHF. Other laboratory values include a blood glucose 298 and his CPK greater than 800 with a relative index of 1.4 consistent with rhabdomyolysis. Urine drug screen is positive for cocaine and opiates. He denies chest pain, palpitations or lower extremity edema. He denies shortness of breath. Cardiac consultation requested. Past History Past Medical History: diabetes, heart failure, hypertension Medications and Allergies Allergies Allergy/AdvReac Type Severity Reaction Status Date / Time Penicillins Allergy Unknown Verified 06/08/15 07:28 Home Medications Medication Instructions Recorded Confirmed Last Taken Type Carvedilol [Coreg] 25 mg PO BID 03/11/16 08/20/16 1 Day Ago History 20 Potassium Chloride [K-Dur] 10 meq PO QDAY 03/11/16 08/20/16 1 Day Ago History Aspirin [Aspirin BABY CHEW TAB] 81 mg PO QDAY tab.chew 08/23/16 Unknown Rx Carvedilol [Coreg] 25 mg PO BID #60 tablet 08/23/16 Unknown Rx Furosemide [Lasix TAB] 20 mg PO DAILY@0600 #30 tablet 08/23/16 Unknown Rx Furosemide [Lasix TAB] 20 mg PO QAM #60 tablet 08/23/16 Unknown Rx Furosemide [Lasix TAB] 40 mg PO DAILY@0600 #30 tablet 08/23/16 Unknown Rx Insulin Glargine [Lantus VIAL] 40 unit SUB-Q QHS #1 vial 08/23/16 Unknown Rx Insulin NPH/Regular [NovoLIN 70/30] 25 unit SQ BID #30 units 08/23/16 Unknown Rx Lisinopril [Zestril TAB] 40 mg PO QDAY #30 tablet 08/23/16 Unknown Rx amLODIPine [Norvasc] 10 mg PO QDAY #30 tablet 08/23/16 Unknown Rx oxyCODONE /ACETAMINOPHEN [Percocet 1 tab PO Q6H PRN #30 tablet 08/23/16 Unknown Rx 5/325 mg] Active Meds: Active Medications Acetaminophen (Tylenol) 650 mg PO Q4H PRN PRN Reason: Pain MILD(1-3)/Fever >100.5/PARIS Albuterol (Proventil) 2.5 mg IH Q3HRT PRN PRN Reason: Shortness Of Breath Aspirin (Aspirin) 325 mg PO QDAY [facility] Last Admin: 09/13/16 09:58 Dose: 325 mg Bisacodyl (Dulcolax) 10 mg AR QDAY PRN PRN Reason: Constipation unrelieved by MOM Enoxaparin Sodium (Lovenox) 40 mg SUB-Q QDAY [facility] Last Admin: 09/13/16 09:36 Dose: 40 mg Furosemide (Lasix) 40 mg IV BID@0600,1800 [facility] Last Admin: 09/13/16 06:00 Dose: 40 mg Lisinopril (Zestril) 2.5 mg PO QDAY [facility] Last Admin: 09/13/16 09:37 Dose: 2.5 mg Magnesium Hydroxide (Milk Of Magnesia) 30 ml PO Q4H PRN PRN Reason: Constipation Metoprolol Tartrate (Lopressor) 25 mg PO BID [facility] Last Admin: 09/13/16 09:37 Dose: 25 mg Ondansetron HCl (Zofran) 4 mg IV Q8H PRN PRN Reason: N/V unrelieved by Reglan Oxycodone/Acetaminophen (Percocet 5/325) 1 tab PO Q6H PRN PRN Reason: Pain, Moderate (4-6) Last Admin: 09/13/16 10:05 Dose: 1 tab Physical Examination Vital Signs Temp Pulse Resp BP 98.6 F 83 16 208/144 09/12/16 18:26 09/12/16 18:26 09/12/16 18:26 09/12/16 18:26 General appearance: no acute distress HEENT: Positive: PERRL Neck: Positive: trachea midline Cardiac: Positive: Reg Rate and Rhythm Results 09/13/16 06:03 09/13/16 06:03 Cardiac Enzymes 09/13/16 09/13/16 Range/Units 00:18 06:03 CK-MB (CK-2) 12.0 H 8.9 H (0.0-4.0) ng/mL CBC 09/13/16 Range/Units 06:03 WBC 6.9 (4.5-11.0) K/mm3 RBC 5.45 H (3.65-5.03) M/mm3 Hgb 15.7 H (11.8-15.2) gm/dl Hct 47.6 H D (35.5-45.6) % Plt Count 192 (140-440) K/mm3 Lymph # 1.4 (1.2-5.4) K/mm3 [place] # 0.8 (0.0-0.8) K/mm3 Eos # 0.0 (0.0-0.4) K/mm3 Baso # 0.1 (0.0-0.1) K/mm3 Comprehensive Metabolic Panel 09/13/16 Range/Units 06:03 Sodium 138 (137-145) mmol/L Potassium 4.2 (3.6-5.0) mmol/L Chloride 99.2 (98-107) mmol/L Carbon Dioxide 28 (22-30) mmol/L BUN 14 (9-20) mg/dL Creatinine 1.0 (0.8-1.5) mg/dL Glucose 204 H (75-100) mg/dL Calcium 8.1 L (8.4-10.2) mg/dL Assessment and Plan Syncope Acute on chronic CHF no ischemia by MPI 08/2016 EF 20-25% on echo 08/2016 Hypertension Diabetes Substance abuse
[2016-09-14] MEDS: PERCOCET 5/325 PO PRN ×2 (00:08→06:38)
[2016-09-14] MEDS ORDERED: APRESOLINE IV ONE (02:27)
[2016-09-14] MEDS: LASIX IV SCH (06:33)
[2016-09-14 07:00] LABS: Hemoglobin 15.8 gm/dl (11.8-15.2); Mean Corpuscular HGB Conc 33 % (32-34); Mean Corpuscular Hemoglobin 29 pg (28-32); Mean Corpuscular Volume 87 fl (84-94); Platelet Count 183 K/mm3 (140-440); Red Cell Distribution Width 14.4 % (13.2-15.2); White Blood Count 5.6 K/mm3 (4.5-11.0)
[2016-09-14 07:08] LABS: Anion Gap 15 mmol/L; BUN/Creatinine Ratio 14.16; Blood Urea Nitrogen 17 mg/dL (9-20); Calcium 8.2 mg/dL (8.4-10.2); Carbon Dioxide 27 mmol/L (22-30); Chloride 96.7 mmol/L (98-107); Cholesterol 183 mg/dL (50-199); Glucose 379 mg/dL (75-100); HDL Cholesterol 45 mg/dL (40-59); LDL Cholesterol,Direct 104 mg/dL (50-130); Potassium 3.7 mmol/L (3.6-5.0); Sodium 135 mmol/L (137-145); Triglycerides 173 mg/dL (2-149)
[2016-09-14 08:01] VITALS: BP 172/88
--- NOTE | 2016-09-14 09:45 | Progress Note ---
Assessment and Plan Questionable Syncope Acute on chronic CHF no ischemia by MPI 08/2016 EF 20-25% on echo 08/2016 Rhabdomyolysis Hypertension Diabetes Substance abuse Noncompliance with medical therapy and outpatient f/u Recommendations: Medical therapy for acute on chronic systolic heart failure. Advised dietary restrictions. Subjective Date of service: 09/14/16 Interval history: Patient denies shortness of breath and chest pain. Objective Vital Signs Temp Pulse Pulse Pulse Resp BP BP 09/14/16 09:14 09/14/16 08:40 80 09/14/16 08:00 98.3 F 89 20 172/88 09/14/16 06:38 22 09/14/16 04:50 98.4 F 92 H 18 175/105 09/14/16 02:48 89 179/110 09/14/16 00:57 98.4 F 89 18 179/110 09/13/16 23:19 97 H 28 H 09/13/16 22:00 09/13/16 21:24 98.6 F 104 H 18 173/108 09/13/16 21:16 104 H 173/108 09/13/16 17:40 73 181/73 09/13/16 17:01 97 H 09/13/16 10:00 Pulse Ox 09/14/16 09:14 98 09/14/16 08:40 09/14/16 08:00 98 09/14/16 06:38 09/14/16 04:50 97 09/14/16 02:48 09/14/16 00:57 96 09/13/16 23:19 100 09/13/16 22:00 97 09/13/16 21:24 96 09/13/16 21:16 09/13/16 17:40 09/13/16 17:01 09/13/16 10:00 97 - Physical Examination General: No Apparent Distress HEENT: Positive: PERRL Neck: Positive: trachea midline Cardiac: Positive: Reg Rate and Rhythm - Labs and Meds Lipids 09/14/16 Range/Units 06:15 Triglycerides 173 H (2-149) mg/dL Cholesterol 183 (50-199) mg/dL HDL Cholesterol 45 (40-59) mg/dL Cholesterol/HDL Ratio 4.06 % CBC 09/14/16 Range/Units 06:15 WBC 5.6 (4.5-11.0) K/mm3 RBC 5.50 H (3.65-5.03) M/mm3 Hgb 15.8 H (11.8-15.2) gm/dl Hct 48.0 H (35.5-45.6) % Plt Count 183 (140-440) K/mm3 Comprehensive Metabolic Panel 09/14/16 Range/Units 06:15 Sodium 135 L (137-145) mmol/L Potassium 3.7 (3.6-5.0) mmol/L Chloride 96.7 L (98-107) mmol/L Carbon Dioxide 27 (22-30) mmol/L BUN 17 (9-20) mg/dL Creatinine 1.2 (0.8-1.5) mg/dL Glucose 379 H (75-100) mg/dL Calcium 8.2 L (8.4-10.2) mg/dL - Imaging and Cardiology EKG: image reviewed
[2016-09-14] MEDS: LOPRESSOR PO SCH (10:49)
[2016-09-14] MEDS: LOVENOX SUB-Q SCH (10:49)
[2016-09-14] MEDS: ZESTRIL PO SCH (10:50)
[2016-09-14] MEDS: ASPIRIN PO SCH (10:50)
--- NOTE | 2016-09-14 12:34 | Discharge Summary ---
Providers - Providers Date of Admission: 09/12/16 23:35 Date of discharge: 09/14/16 Attending physician: YULY MOJICA 09/13/16 00:08 Consult to Physician [CONS] Routine Consulting Provider: TRENT OAKES Reason For Exam: chf Place consult to:: TRENT OAKES Notified:: bernardo Phone number called:: [phone] Was contact made?: Yes Primary care physician: [facility] Hospitalization Condition: Stable Hospital course: Patient is a 50-year-old man with a history of insulin-dependent diabetes mellitus, hypertension, CHF EF 20-25%, Nonischemic cardiomyopathy, diabetic peripheral neuropathy and substance abuse who presents with shortness of breath followed by syncopal episode. He called EMS because of shortness of breath and they came and left. Then he had shortness of breath again followed by a syncopal episode and his daughter brought him to [facility] emergency department. Patient was admitted from [address] [place] [address] on 08/22/2016. 2016 2D echocardiogram showed global left ventricular systolic severely decreased, estimated EF 2025 percent. Left atrium is moderately to severely dilated. There is mild mitral regurgitation. Trace TR without pulmonary hypertension. Trivial pericardial effusion. A stress thallium was unremarkable. Chest x-ray on this admission showing CHF. Urine drug screen is positive for cocaine and opiates. -Acute on chronic systolic heart failure: IV Diuresis bid and consulted cardiology. Also, add aspirin. Check lipids->lifestyle modifications stressed, no statin this visit due to nontraumatic rhabdo, poa -Cocaine abuse: Counseling done to stop, patient voices understanding -Syncope episode, workup pending: Checked carotid Dopplers, neurological checks -Insulin-dependent diabetes mellitus2 with htn: Continue present management/ lisinopril -DVT prophylaxis: Subcutaneous Lovenox Disposition: DISCHARGED TO HOME OR SELFCARE Time spent for discharge: 36 minutes Core Measure Documentation - Palliative Care Palliative Care/ Comfort Measures: Not Applicable - Core Measures Any of the following diagnoses?: heart failure - VTE Discharge Requirements Deep Vein Thrombosis/Pulmonary Embolism Present on Admission: No Has pt received <5 days of overlap therapy or INR<2.0: No Anticoagulant overlap therapy prescribed at discharge: No Contraindication No Overlap Therapy order at DC: Not Indicated - Heart Failure Discharge Requirements SOUTH/ARB for LVSD if EF <40%: Yes Beta ned at discharge: Yes Exam - Physical Exam Narrative exam: GEN: WDWN, NAD, AWAKE, ALERT, ORIENTATED 3 HEENT: NCAT, PERRL, EOMI, OP CLEAR NECK: SUPPLE, NO THYROMEGALY, equivocal JVD, NO LAD CVS: RRR, NORMAL S1S2 LUNGS/CHEST: Bibasilar crackles, NORMAL CHEST EXPANSION B, GOOD AIR ENTRY B ABD: SOFT NTND, GBS, NO REBOUND OR GUARDING EXT/SKIN: NO SIGNIFICANT EDEMA MSK: FROM X 4 EXTREMITIES NEURO: CN 2-12 GROSSLY INTACT, NO new FOCAL DEFICITS PSY: Anxious - Constitutional Vitals: Temp Pulse Resp BP Pulse Ox 98.3 F 80 20 172/88 98 09/14/16 08:00 09/14/16 08:40 09/14/16 08:00 09/14/16 08:00 09/14/16 09:14 Plan Activity: advance as tolerated (no strenous activites until cleared by PCP. ) Diet: low salt Special Instructions: record daily BP diary Additional Instructions: No crack cocaine, no cocaine, no smoking cigarettes Follow up with: PRIMARY MD JUAQUIN [Primary Care Provider] - 7 Days TRENT OAKES MD [Staff Physician] - 7 Days Forms: Discharge Signature Page Prescriptions: Furosemide [Lasix TAB] 40 mg PO DAILY@0600 #30 tablet Insulin NPH/Regular [NovoLIN 70/30] 25 unit SQ BID #30 units Lisinopril [Zestril TAB] 2.5 mg PO QDAY #30 tablet Metoprolol [Lopressor TAB] 25 mg PO BID #60 tablet oxyCODONE /ACETAMINOPHEN [Percocet 5/325 mg] 1 tab PO Q6H PRN #30 tablet PRN Reason: Pain , Severe (7-10) Potassium Chloride [K-Dur] 10 meq PO QDAY #30 tablet
== END 2016-09-14 13:08 | disposition home or self-care (01) | DRG 292 ==
LOC: ED 18:15 → 4A 23:35
PROVIDERS: ADMIT Internal Medicine; ATTEND Internal Medicine
PROC: 4A033R1 Measurement of Arterial Saturation, Peripheral, Percutaneous Approach (ICD-10-PCS; principal; 2016-09-12)
PROC: 5A09357 Assistance with Respiratory Ventilation, Less than 24 Consecutive Hours, Continuous Positive Airway Pressure (ICD-10-PCS; 2016-09-12)
DX: I11.0 Hypertensive heart disease with heart failure (principal); M62.82 Rhabdomyolysis; I50.43 Acute on chronic combined systolic (congestive) and diastolic (congestive) heart failure; I42.0 Dilated cardiomyopathy; E11.42 Type 2 diabetes mellitus with diabetic polyneuropathy; G47.33 Obstructive sleep apnea (adult) (pediatric); F19.10 Other psychoactive substance abuse, uncomplicated; F14.10 Cocaine abuse, uncomplicated; Z88.0 Allergy status to penicillin; Z72.89 Other problems related to lifestyle; Z79.4 Long term (current) use of insulin; Z91.14 Patient's other noncompliance with medication regimen; Z71.51 Drug abuse counseling and surveillance of drug abuser; Z82.49 Family history of ischemic heart disease and other diseases of the circulatory system
CPT/HCPCS: 36415; 70450; 71010; 72125; 80048; 80053; 80061; 80307; 80320; 81001; 82140; 82550; 82553; 82803; 82962; 83735; 84443; 84484; 85025; 85027; 85379; 93005; 93010; 93880; 94660; 94760; G0480; J0360; J1650; J1940; J7030

== ENCOUNTER 2016-12-27 22:18 | Emergency (ER) | payer SELFPAY | END 2016-12-27 23:08 | disposition left against medical advice (07) | LOC: ED 22:18 | DX: R07.9 Chest pain, unspecified (principal); Z53.21 Procedure and treatment not carried out due to patient leaving prior to being seen by health care provider ==

== ENCOUNTER 2017-08-15 02:58 | Inpatient (IN) | payer OTHER ==
[2017-08-15 03:46] LABS: Basophils # (Auto) 0.1 K/mm3 (0.0-0.1); Basophils % (Auto) 1.3 % (0.0-1.8); Eosinophils # (Auto) 0.1 K/mm3 (0.0-0.4); Eosinophils % (Auto) 1.7 % (0.0-4.3); Hematocrit 43.6 % (35.5-45.6); Lymphocytes # (Auto) 2.2 K/mm3 (1.2-5.4); Mean Corpuscular HGB Conc 34 % (32-34); Mean Corpuscular Hemoglobin 30 pg (28-32); Mean Corpuscular Volume 86 fl (84-94); Monocytes # (Auto) 0.7 K/mm3 (0.0-0.8); Monocytes % (Auto) 7.9 % (0.0-7.3); Platelet Count 214 K/mm3 (140-440); Red Blood Count 5.05 M/mm3 (3.65-5.03); Red Cell Distribution Width 14.1 % (13.2-15.2)
--- NOTE | 2017-08-15 03:55 | XRay Report ---
FINAL REPORT EXAM: XR CHEST ROUTINE 2V HISTORY: Shortness of breath TECHNIQUE: PA and lateral views of the chest were submitted. Comparison is made to the study of 09/12/2016. FINDINGS: The heart is [id number] enlarged. The lungs are mildly congested. Pleural fluid is not seen. There are no localized infiltrates. The skeletal structures do not show any acute changes. IMPRESSION: Cardiomegaly with mild pulmonary vascular congestion. No localized infiltrates.
[2017-08-15 04:15] LABS: Calcium 8.2 mg/dL (8.4-10.2)
[2017-08-15 04:34] LABS: Chol/HDL Ratio 4.46 %
[2017-08-15] MEDS ORDERED: NITROSTAT SL ONE (06:20)
[2017-08-15] MEDS ORDERED: LASIX IV ONE (06:20)
--- NOTE | 2017-08-15 06:26 | Emergency Department Report ---
<ROSA STEWARD - Last Filed: 08/15/17 08:35> ED Shortness of Breath HPI - General Chief Complaint: Dyspnea/Respdistress Stated Complaint: VIN Time Seen by Provider: 08/15/17 06:17 Source: patient Mode of arrival: Ambulatory Limitations: No Limitations - History of Present Illness Initial Comments: Patient is 51 years old male history of congestive heart failure, hypertension and diabetes. Patient presented to the ER with shortness of breath and generalized swelling for the last 3-4 days. Patient oxygen saturation is 88%. Patient denied any chest pain, fever. He denied also nausea or vomiting. Patient stated that he was out of his medication for the last 2 weeks. MD Complaint: shortness of breath, cough -: days(s) Known History Of: congestive heart failure Associated Symptoms: cough - Related Data Home Medications Medication Instructions Recorded Confirmed Last Taken Carvedilol [Coreg] 25 mg PO BID 03/11/16 08/20/16 1 Day Ago ~08/19/16 20 Previous Rx's Medication Instructions Recorded Last Taken Type Aspirin [Aspirin BABY CHEW TAB] 81 mg PO QDAY tab.chew 08/23/16 Unknown Rx Carvedilol [Coreg] 25 mg PO BID #60 tablet 08/23/16 Unknown Rx amLODIPine [Norvasc] 10 mg PO QDAY #30 tablet 08/23/16 Unknown Rx Furosemide [Lasix TAB] 40 mg PO DAILY@0600 #30 tablet 09/14/16 Unknown Rx Insulin NPH/Regular [NovoLIN 70/30] 25 unit SQ BID #30 units 09/14/16 Unknown Rx Lisinopril [Zestril TAB] 2.5 mg PO QDAY #30 tablet 09/14/16 Unknown Rx Metoprolol [Lopressor TAB] 25 mg PO BID #60 tablet 09/14/16 Unknown Rx Potassium Chloride [K-Dur] 10 meq PO QDAY #30 tablet 09/14/16 Unknown Rx oxyCODONE /ACETAMINOPHEN [Percocet 1 tab PO Q6H PRN #30 tablet 09/14/16 Unknown Rx 5/325 mg] Allergies Allergy/AdvReac Type Severity Reaction Status Date / Time Penicillins Allergy Unknown Verified 06/08/15 07:28 ED Review of Systems ROS: Stated complaint: VIN Other details as noted in HPI Comment: All other systems reviewed and negative Constitutional: denies: chills, fever Respiratory: cough, orthopnea, shortness of breath, SOB with exertion, SOB at rest. denies: wheezing Cardiovascular: denies: chest pain Gastrointestinal: denies: abdominal pain, nausea, vomiting, diarrhea, constipation, hematemesis, melena, hematochezia Neurological: denies: headache, weakness, numbness, paresthesias, confusion, abnormal gait ED Past Medical Hx - Past Medical History Hx Hypertension: Yes Hx Congestive Heart Failure: Yes Hx Diabetes: Yes Hx Liver Disease: Yes Hx Renal Disease: Yes Hx Asthma: Yes - Surgical History Past Surgical History?: No - Social History Smoking Status: Former Smoker Substance Use Type: None - Medications Home Medications: Home Medications Medication Instructions Recorded Confirmed Last Taken Type Carvedilol [Coreg] 25 mg PO BID 03/11/16 08/20/16 1 Day Ago History ~08/19/16 20 Aspirin [Aspirin BABY CHEW TAB] 81 mg PO QDAY tab.chew 08/23/16 Unknown Rx Carvedilol [Coreg] 25 mg PO BID #60 tablet 08/23/16 Unknown Rx amLODIPine [Norvasc] 10 mg PO QDAY #30 tablet 08/23/16 Unknown Rx Furosemide [Lasix TAB] 40 mg PO DAILY@0600 #30 tablet 09/14/16 Unknown Rx Insulin NPH/Regular [NovoLIN 70/30] 25 unit SQ BID #30 units 09/14/16 Unknown Rx Lisinopril [Zestril TAB] 2.5 mg PO QDAY #30 tablet 09/14/16 Unknown Rx Metoprolol [Lopressor TAB] 25 mg PO BID #60 tablet 09/14/16 Unknown Rx Potassium Chloride [K-Dur] 10 meq PO QDAY #30 tablet 09/14/16 Unknown Rx oxyCODONE /ACETAMINOPHEN [Percocet 1 tab PO Q6H PRN #30 tablet 09/14/16 Unknown Rx 5/325 mg] ED Physical Exam - General Limitations: No Limitations General appearance: alert, in distress - Head Head exam: Present: atraumatic, normocephalic, normal inspection - Eye Eye exam: Present: normal appearance - ENT ENT exam: Present: normal exam, normal orophraynx, mucous membranes moist - Neck Neck exam: Present: normal inspection - Respiratory Respiratory exam: Present: respiratory distress, rales, decreased breath sounds. Absent: wheezes, rhonchi, accessory muscle use, prolonged expiratory - Cardiovascular Cardiovascular Exam: Present: regular rate, normal rhythm, normal heart sounds - GI/Abdominal GI/Abdominal exam: Present: soft, normal bowel sounds. Absent: distended, tenderness, guarding, rebound, rigid, organomegaly, mass, bruit, pulsatile mass - Extremities Exam Extremities exam: Present: normal inspection, full ROM, normal capillary refill , pedal edema - Back Exam Back exam: Present: normal inspection, full ROM. Absent: CVA tenderness (R), CVA tenderness (L) - Neurological Exam Neurological exam: Present: alert, oriented X3, CN II-XII intact, normal gait - Skin Skin exam: Present: warm, intact, normal color ED Course Vital Signs 08/15/17 08/15/17 08/15/17 03:12 04:58 05:00 Temperature 98.6 F Pulse Rate 82 91 H 89 Respiratory 26 H 21 22 Rate Blood Pressure 180/125 186/131 193/138 Blood Pressure [Right] O2 Sat by Pulse 94 91 93 Oximetry 08/15/17 08/15/17 08/15/17 05:16 05:30 05:56 Temperature Pulse Rate 77 97 H Respiratory 22 28 H Rate Blood Pressure 193/138 193/138 193/138 Blood Pressure [Right] O2 Sat by Pulse 94 91 95 Oximetry 08/15/17 08/15/17 08/15/17 06:00 06:09 06:14 Temperature Pulse Rate 93 H 89 Respiratory 18 22 Rate Blood Pressure 197/131 Blood Pressure [Right] O2 Sat by Pulse 88 89 Oximetry 08/15/17 08/15/17 08/15/17 06:16 06:30 06:34 Temperature Pulse Rate 89 79 77 Respiratory 22 27 H 27 H Rate Blood Pressure 197/131 197/131 Blood Pressure [Right] O2 Sat by Pulse 89 100 97 Oximetry 08/15/17 08/15/17 08/15/17 06:37 06:38 06:45 Temperature Pulse Rate 79 77 76 Respiratory 24 26 H Rate Blood Pressure 197/131 179/111 Blood Pressure 188/116 [Right] O2 Sat by Pulse 95 90 Oximetry ED Medical Decision Making - Lab Data Result diagrams: 08/15/17 03:33 08/15/17 03:33 - EKG Data -: EKG Interpreted by [place] EKG shows normal: sinus rhythm Rate: normal - EKG Data Interpretation: no acute changes - Radiology Data Radiology results: report reviewed Chest x-ray showed pulmonary edema no infiltrate. - Medical Decision Making Discussed with Dr. Owens, I presented the patient to him, he agreed to admit the patient to his service. Critical Care Time: Yes Critical care time in (mins) excluding proc time.: 30 Critical care attestation.: If time is entered above; I have spent that time in minutes in the direct care of this critically ill patient, excluding procedure time. ED Disposition Disposition: DC-09 OP ADMIT IP TO THIS HOSP Is pt being admited?: Yes Condition: Stable <BAY EDWARDS - Last Filed: 08/15/17 09:05> ED Medical Decision Making - Lab Data Result diagrams: 08/15/17 03:33 08/15/17 03:33
--- NOTE | 2017-08-15 09:01 | History and Physical Report ---
History of Present Illness Date of examination: 08/15/17 Date of admission: 08/15/17 08:24 Chief complaint: Worsening Shortness of breath History of present illness: Morbidly obese 51-year-old male patient with significant history of nonischemic cardiomyopathy with ejection fraction of 20%, type 2 diabetes mellitus, hypertension, noncompliant with medications and follow-up visits, not on medications for many months, presented to the emergency room with worsening shortness of breath Noted to be in acute on chronic respiratory failure secondary to acute exacerbation of chronic congestive heart failure Patient denies chest pain, reports orthopnea, worsening effort tolerance Denies nausea vomiting or abdominal pain Initial workup is consistent malignant hypertension, acute exacerbation of congestive heart failure Past History Past Medical History: diabetes, heart failure, hypertension, other (morbid obesity) Past Surgical History: No surgical history Social history: smoking (quit smoking), other (history of recreational drug use cocaine, now denies) Family history: hypertension Medications and Allergies Allergies Allergy/AdvReac Type Severity Reaction Status Date / Time Penicillins Allergy Unknown Verified 06/08/15 07:28 Home Medications Medication Instructions Recorded Confirmed Last Taken Type Carvedilol [Coreg] 25 mg PO BID 03/11/16 08/20/16 1 Day Ago History ~08/19/16 20 Aspirin [Aspirin BABY CHEW TAB] 81 mg PO QDAY tab.chew 08/23/16 Unknown Rx Carvedilol [Coreg] 25 mg PO BID #60 tablet 08/23/16 Unknown Rx amLODIPine [Norvasc] 10 mg PO QDAY #30 tablet 08/23/16 Unknown Rx Furosemide [Lasix TAB] 40 mg PO DAILY@0600 #30 tablet 09/14/16 Unknown Rx Insulin NPH/Regular [NovoLIN 70/30] 25 unit SQ BID #30 units 09/14/16 Unknown Rx Lisinopril [Zestril TAB] 2.5 mg PO QDAY #30 tablet 09/14/16 Unknown Rx Metoprolol [Lopressor TAB] 25 mg PO BID #60 tablet 09/14/16 Unknown Rx Potassium Chloride [K-Dur] 10 meq PO QDAY #30 tablet 09/14/16 Unknown Rx oxyCODONE /ACETAMINOPHEN [Percocet 1 tab PO Q6H PRN #30 tablet 09/14/16 Unknown Rx 5/325 mg] Review of Systems Constitutional: fatigue, weakness, no weight loss, no weight gain Cardiovascular: orthopnea, shortness of breath, dyspnea on exertion, leg edema, no chest pain Respiratory: shortness of breath, dyspnea on exertion, congestion Gastrointestinal: no abdominal pain, no nausea, no vomiting Genitourinary Male: no hematuria, no flank pain Musculoskeletal: no myalgias, no arthritis Integumentary: no rash, no lesions Neurological: no paralysis, no weakness, no numbness Psychiatric: no anxiety, no memory loss, no depression Endocrine: no cold intolerance, no heat intolerance, no polydipsia, no polyuria Hematologic/Lymphatic: no easy bruising, no easy bleeding Allergic/Immunologic: no urticaria, no allergic rhinitis Exam - Constitutional Vitals: Temp Pulse Resp BP Pulse Ox 98.6 F 76 26 H 179/111 90 08/15/17 03:12 08/15/17 06:45 08/15/17 06:45 08/15/17 06:45 08/15/17 06:45 General appearance: Present: mild distress, obese (morbidly obese) - EENT Eyes: Present: PERRL, EOM intact - Neck Neck: Present: supple, normal ROM - Respiratory Respiratory effort: labored Respiratory: bilateral: diminished, rales, negative: rhonchi, wheezing - Cardiovascular Rhythm: regular Heart Sounds: Present: S1 & S2 - Extremities Extremities: no ischemia Extremity abnormal: edema - Abdominal General gastrointestinal: Present: soft, non-tender, non-distended, normal bowel sounds - Integumentary Integumentary: Present: clear, warm - Musculoskeletal Musculoskeletal: strength equal bilaterally, generalized weakness - Psychiatric Psychiatric: appropriate mood/affect, cooperative - Neurologic Neurologic: CNII-XII intact, moves all extremities Results - Labs CBC & Chem 7: 08/15/17 03:33 08/15/17 03:33 Labs: Abnormal lab results 08/15/17 08/15/17 Range/Units 03:33 03:33 RBC 5.05 H (3.65-5.03) M/mm3 [place] % (Auto) 7.9 H (0.0-7.3) % Creatinine 1.7 H (0.8-1.5) mg/dL Glucose 284 H (75-100) mg/dL Calcium 8.2 L (8.4-10.2) mg/dL Troponin T 0.037 H (0.00-0.029) ng/mL NT-Pro-B Natriuret Pep 6176 H (0-900) pg/mL Triglycerides 263 H (2-149) mg/dL Assessment and Plan --Acute on chronic hypoxic respiratory failure --acute on chronic systolic congestive heart failure We'll manage with anti-failure medications, input output monitoring, fluid restriction Diuretics, beta blockers, no Jh inhibitors in view of acute renal failure, input output monitoring Cardiology consult --Nonischemic dilated cardiomyopathy; ejection fraction 20-25% Continue anti-failure medications, input output monitoring, fluid restriction Low-sodium diet, cardiology evaluation if needed --Nonspecific elevation of cardiac enzymes; Probably secondary to acute exacerbation of congestive heart failure Closely monitor, cardiology evaluation --Accelerated Hypertension; Resume home antihypertensives, when necessary medications, closely monitor --Acute kidney injury; Due to vasomotor nephropathy Possible hypertensive nephropathy Closely monitor renal function, avoid nephrotoxic medications, The nephrology evaluation if needed --2 diabetes mellitus; Accu-Chek sliding scale coverage ADA diet and insulin Diabetic education, hemoglobin A1c --Dyslipidemia; add lipid-lowering medications Low-cholesterol diet --Morbid obesity; BMI 40.6 Counseling done, advised diet modification, exercise as tolerated and weight reduction When medically stable --Possible obstructive sleep apnea; patient needs outpatient sleep studies/CPAP /BiPAP at night as needed --medical noncompliance; counseling done patient strongly advised to comply with medications and diet and follow-up visits Verbalized understanding --Discharge planning per case management Closely monitor the patient and adjust the management as needed Plan of care reviewed with the patient, his nurse
[2017-08-15] MEDS ORDERED: ZESTRIL PO SCH (10:00)
--- NOTE | 2017-08-15 10:41 | Emergency Department Report ---
ED Shortness of Breath HPI - General Chief Complaint: Dyspnea/Respdistress Stated Complaint: VIN Time Seen by Provider: 08/15/17 06:17 Source: patient Mode of arrival: Ambulatory Limitations: No Limitations - History of Present Illness Initial Comments: Patient is 51 years old male history of CHF, diabetes hypertension. Patient presented to the ER with shortness of breath and generalized swelling for the last 3 days. Patient stated that he is out of his Lasix for the last 2 weeks. Patient denied any chest pain, fever, nausea or vomiting. MD Complaint: shortness of breath, cough -: days(s) Known History Of: congestive heart failure - Related Data Home Medications Medication Instructions Recorded Confirmed Last Taken Carvedilol [Coreg] 25 mg PO BID 03/11/16 08/20/16 1 Day Ago ~08/19/16 20 Previous Rx's Medication Instructions Recorded Last Taken Type Aspirin [Aspirin BABY CHEW TAB] 81 mg PO QDAY tab.chew 08/23/16 Unknown Rx Carvedilol [Coreg] 25 mg PO BID #60 tablet 08/23/16 Unknown Rx amLODIPine [Norvasc] 10 mg PO QDAY #30 tablet 08/23/16 Unknown Rx Furosemide [Lasix TAB] 40 mg PO DAILY@0600 #30 tablet 09/14/16 Unknown Rx Insulin NPH/Regular [NovoLIN 70/30] 25 unit SQ BID #30 units 09/14/16 Unknown Rx Lisinopril [Zestril TAB] 2.5 mg PO QDAY #30 tablet 09/14/16 Unknown Rx Metoprolol [Lopressor TAB] 25 mg PO BID #60 tablet 09/14/16 Unknown Rx Potassium Chloride [K-Dur] 10 meq PO QDAY #30 tablet 09/14/16 Unknown Rx oxyCODONE /ACETAMINOPHEN [Percocet 1 tab PO Q6H PRN #30 tablet 09/14/16 Unknown Rx 5/325 mg] Allergies Allergy/AdvReac Type Severity Reaction Status Date / Time Penicillins Allergy Unknown Verified 06/08/15 07:28 ED Review of Systems ROS: Stated complaint: VIN Other details as noted in HPI Comment: All other systems reviewed and negative Constitutional: denies: chills, fever Respiratory: cough, orthopnea, shortness of breath, SOB with exertion, SOB at rest Cardiovascular: dyspnea on exertion, orthopnea. denies: chest pain, palpitations Gastrointestinal: denies: abdominal pain, nausea, vomiting, diarrhea, constipation, hematemesis, melena, hematochezia Neurological: denies: headache, weakness, numbness, paresthesias ED Past Medical Hx - Past Medical History Hx Hypertension: Yes Hx Congestive Heart Failure: Yes Hx Diabetes: Yes Hx Liver Disease: Yes Hx Renal Disease: Yes Hx Asthma: Yes - Surgical History Past Surgical History?: No - Social History Smoking Status: Former Smoker Substance Use Type: None - Medications Home Medications: Home Medications Medication Instructions Recorded Confirmed Last Taken Type Carvedilol [Coreg] 25 mg PO BID 03/11/16 08/20/16 1 Day Ago History ~08/19/16 20 Aspirin [Aspirin BABY CHEW TAB] 81 mg PO QDAY tab.chew 08/23/16 Unknown Rx Carvedilol [Coreg] 25 mg PO BID #60 tablet 08/23/16 Unknown Rx amLODIPine [Norvasc] 10 mg PO QDAY #30 tablet 08/23/16 Unknown Rx Furosemide [Lasix TAB] 40 mg PO DAILY@0600 #30 tablet 09/14/16 Unknown Rx Insulin NPH/Regular [NovoLIN 70/30] 25 unit SQ BID #30 units 09/14/16 Unknown Rx Lisinopril [Zestril TAB] 2.5 mg PO QDAY #30 tablet 09/14/16 Unknown Rx Metoprolol [Lopressor TAB] 25 mg PO BID #60 tablet 09/14/16 Unknown Rx Potassium Chloride [K-Dur] 10 meq PO QDAY #30 tablet 09/14/16 Unknown Rx oxyCODONE /ACETAMINOPHEN [Percocet 1 tab PO Q6H PRN #30 tablet 09/14/16 Unknown Rx 5/325 mg] ED Physical Exam - General Limitations: No Limitations General appearance: alert, in distress - Head Head exam: Present: atraumatic, normocephalic, normal inspection - Eye Eye exam: Present: normal appearance, PERRL - ENT ENT exam: Present: normal exam, normal orophraynx, mucous membranes moist - Neck Neck exam: Present: normal inspection, full ROM. Absent: tenderness, meningismus, lymphadenopathy, thyromegaly - Respiratory Respiratory exam: Present: normal lung sounds bilaterally, rales, decreased breath sounds. Absent: respiratory distress, wheezes, rhonchi, stridor, chest wall tenderness, accessory muscle use, prolonged expiratory - Cardiovascular Cardiovascular Exam: Present: regular rate, normal rhythm, normal heart sounds - GI/Abdominal GI/Abdominal exam: Present: soft, normal bowel sounds. Absent: distended, tenderness, guarding, rebound, rigid, organomegaly, mass, bruit, pulsatile mass , hernia - Extremities Exam Extremities exam: Present: normal inspection, full ROM, normal capillary refill - Back Exam Back exam: Present: normal inspection, full ROM. Absent: tenderness, CVA tenderness (R), CVA tenderness (L), muscle spasm, paraspinal tenderness, vertebral tenderness - Neurological Exam Neurological exam: Present: alert, oriented X3, CN II-XII intact, normal gait - Skin Skin exam: Present: warm, intact, normal color ED Course Vital Signs 08/15/17 08/15/17 08/15/17 03:12 04:58 05:00 Temperature 98.6 F Pulse Rate 82 91 H 89 Respiratory 26 H 21 22 Rate Blood Pressure 180/125 186/131 193/138 Blood Pressure [Right] O2 Sat by Pulse 94 91 93 Oximetry 08/15/17 08/15/17 08/15/17 05:16 05:30 05:56 Temperature Pulse Rate 77 97 H Respiratory 22 28 H Rate Blood Pressure 193/138 193/138 193/138 Blood Pressure [Right] O2 Sat by Pulse 94 91 95 Oximetry 08/15/17 08/15/17 08/15/17 06:00 06:09 06:14 Temperature Pulse Rate 93 H 89 Respiratory 18 22 Rate Blood Pressure 197/131 Blood Pressure [Right] O2 Sat by Pulse 88 89 Oximetry 08/15/17 08/15/17 08/15/17 06:16 06:30 06:34 Temperature Pulse Rate 89 79 77 Respiratory 22 27 H 27 H Rate Blood Pressure 197/131 197/131 Blood Pressure [Right] O2 Sat by Pulse 89 100 97 Oximetry 08/15/17 08/15/17 08/15/17 06:37 06:38 06:45 Temperature Pulse Rate 79 77 76 Respiratory 24 26 H Rate Blood Pressure 197/131 179/111 Blood Pressure 188/116 [Right] O2 Sat by Pulse 95 90 Oximetry 08/15/17 08/15/17 08/15/17 07:00 07:16 07:30 Temperature Pulse Rate 64 84 73 Respiratory 12 11 L 23 Rate Blood Pressure 176/107 187/119 175/119 Blood Pressure [Right] O2 Sat by Pulse 97 92 93 Oximetry 08/15/17 08/15/17 08/15/17 07:45 08:00 08:15 Temperature Pulse Rate 75 76 74 Respiratory 20 21 22 Rate Blood Pressure 177/125 192/121 169/112 Blood Pressure [Right] O2 Sat by Pulse 94 90 Oximetry 08/15/17 08/15/17 08/15/17 08:30 08:45 09:00 Temperature Pulse Rate 74 76 79 Respiratory 21 26 H 20 Rate Blood Pressure 177/119 184/120 195/130 Blood Pressure [Right] O2 Sat by Pulse 93 97 Oximetry 08/15/17 09:15 Temperature Pulse Rate 75 Respiratory 19 Rate Blood Pressure 183/123 Blood Pressure [Right] O2 Sat by Pulse 98 Oximetry ED Medical Decision Making - Lab Data Result diagrams: 08/15/17 03:33 08/15/17 03:33 - EKG Data -: EKG Interpreted by Nh EKG shows normal: sinus rhythm Rate: normal - EKG Data Interpretation: no acute changes - Radiology Data Radiology results: report reviewed Referring Physician: ED EVA Patient Name: CHARITY ADEN Date of : 1965 Sex: Male Report Date: 2017-08-15 Report Status: [place] [address] XRay Report Signed Patient: CHARITY ADEN MR#: [id number] : 1965 Acct:[id number] Age/Sex: 51 / M ADM Date: 08/15/17 Loc: ED Attending Dr: Ordering Physician: TAM VELASQUEZ MD Date of Service: 08/15/17 Procedure(s): XR chest routine 2V Accession Number(s): [id number] cc: ED MD EVA Fluoro Time In Minutes: FINAL REPORT EXAM: XR CHEST ROUTINE 2V HISTORY: Shortness of breath TECHNIQUE: PA and lateral views of the chest were submitted. Comparison is made to the study of 09/12/2016. FINDINGS: The heart is [id number] enlarged. The lungs are mildly congested. Pleural fluid is not seen. There are no localized infiltrates. The skeletal structures do not show any acute changes. IMPRESSION: Cardiomegaly with mild pulmonary vascular congestion. No localized infiltrates. Transcribed By: VERENICE Dictated By: FABIANA COE MD Electronically Authenticated By: FABIANA COE MD Signed Date/Time: 08/15/17349 DD/ 9 TD/TT: 08/15/17349 Critical care attestation.: If time is entered above; I have spent that time in minutes in the direct care of this critically ill patient, excluding procedure time. ED Disposition Clinical Impression: Acute exacerbation of CHF (congestive heart failure), Malignant hypertension Disposition: OP ADMIT IP TO THIS HOSP Is pt being admited?: Yes Condition: Stable
[2017-08-15] MEDS: PERCOCET 5/325 PO PRN ×2 (14:36→19:49)
[2017-08-15] MEDS: BABY ASPIRIN PO SCH (14:38)
[2017-08-15] MEDS: K-DUR PO SCH (14:38)
[2017-08-15] MEDS ORDERED: APRESOLINE IV ONE (16:59)
[2017-08-15] MEDS ORDERED: APRESOLINE IV PRN (18:49)
[2017-08-15] MEDS: LASIX IV SCH (19:18)
[2017-08-15] MEDS: COREG PO SCH ×2 (19:32→22:03)
[2017-08-15] MEDS ORDERED: Fluarix Quad 2017-2018(36 MOS+ IM ONE (19:41)
[2017-08-15] MEDS: CATAPRES PO SCH (22:02)
[2017-08-15] MEDS: APRESOLINE PO SCH (22:03)
[2017-08-15 22:24] LABS: Creatine Kinase MB 9.8 ng/mL (0.0-4.0)
[2017-08-16] MEDS: NORVASC PO SCH ×2 (03:09→09:29)
[2017-08-16] MEDS: PERCOCET 5/325 PO PRN ×3 (04:39→20:18)
[2017-08-16] MEDS: APRESOLINE PO SCH ×3 (05:54→22:55)
[2017-08-16] MEDS: LASIX IV SCH ×2 (05:54→17:21)
[2017-08-16 06:23] LABS: Alanine Aminotransferase 37 units/L (7-56); Albumin 2.7 g/dL (3.9-5); BUN/Creatinine Ratio 11; Bilirubin,Direct < 0.2 mg/dL (0-0.2); Blood Urea Nitrogen 18 mg/dL (9-20); Calcium 7.9 mg/dL (8.4-10.2); Hemolysis Index 10
[2017-08-16 06:24] LABS: Creatine Kinase MB 8.5 ng/mL (0.0-4.0)
[2017-08-16] MEDS: BABY ASPIRIN PO SCH (09:28)
[2017-08-16] MEDS: K-DUR PO SCH (09:29)
[2017-08-16] MEDS: COREG PO SCH ×2 (09:30→22:54)
[2017-08-16] MEDS: CATAPRES PO SCH ×2 (09:31→22:55)
--- NOTE | 2017-08-16 10:29 | Progress Note ---
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% Continue anti-failure medications, input output monitoring, fluid restriction Low-sodium diet, cardiology evaluation if needed --Nonspecific elevation of cardiac enzymes; Probably secondary to acute exacerbation of congestive heart failure Medical management --Accelerated Hypertension; rate controlled Multiple antihypertensives, adjust the dosages --Acute kidney injury; mild improvement, creatinine 1.7-1.6 Due to vasomotor nephropathy, hypertensive nephropathy --2 diabetes mellitus; uncontrolled secondary to noncompliance with diet and medications Accu-Chek sliding scale coverage ADA diet and insulin ,Diabetic education, , HbA1c 9.3 --Dyslipidemia; add lipid-lowering medications Low-cholesterol diet --Morbid obesity; BMI 40.6 Counseling done, advised diet modification, exercise as tolerated and weight reduction When medically stable --Possible obstructive sleep apnea; patient needs outpatient sleep studies/CPAP /BiPAP at night as needed --medical noncompliance; counseling done patient strongly advised to comply with medications and diet and follow-up visits Verbalized understanding --Discharge planning possible discharge home tomorrow if stable Plan of care reviewed with the patient, his nurse , answered all his questions and concerns History Interval history: Patient seen and examined medical records reviewed Feels slightly better, blood pressures are better controlled Uncontrolled blood sugars secondary to noncompliance with diet Patient denies chest pain or shortness of breath Alert awake Oriented 3 Vital signs reviewed Hospitalist Physical - Constitutional Vitals: Temp Pulse Resp BP Pulse Ox 98.3 F 80 20 156/110 98 08/16/17 07:40 08/16/17 09:31 08/16/17 07:40 08/16/17 09:31 08/16/17 07:40 General appearance: Present: no acute distress, obese (morbidly obese) - EENT Eyes: Present: PERRL, EOM intact - Neck Neck: Present: supple, normal ROM - Respiratory Respiratory effort: normal Respiratory: bilateral: diminished, rales, negative: rhonchi, wheezing - Cardiovascular Rhythm: regular Heart Sounds: Present: S1 & S2 - Extremities Extremities: no ischemia, No edema - Abdominal General gastrointestinal: soft, non-tender, non-distended, normal bowel sounds - Integumentary Integumentary: Present: clear, warm - Psychiatric Psychiatric: appropriate mood/affect, cooperative - Neurologic Neurologic: CNII-XII intact, moves all extremities Results - Labs CBC & Chem 7: 08/15/17 03:33 08/16/17 05:20 Labs: Laboratory Last Values WBC 8.3 K/mm3 (4.5-11.0) 08/15/17 03:33 RBC 5.05 M/mm3 (3.65-5.03) H 08/15/17 03:33 Hgb 15.0 gm/dl (11.8-15.2) 08/15/17 03:33 Hct 43.6 % (35.5-45.6) 08/15/17 03:33 MCV 86 fl (84-94) 08/15/17 03:33 MCH 30 pg (28-32) 08/15/17 03:33 MCHC 34 % (32-34) 08/15/17 03:33 RDW 14.1 % (13.2-15.2) 08/15/17 03:33 Plt Count 214 K/mm3 (140-440) 08/15/17 03:33 Lymph % (Auto) 27.0 % (13.4-35.0) 08/15/17 03:33 [place] % (Auto) 7.9 % (0.0-7.3) H 08/15/17 03:33 Eos % (Auto) 1.7 % (0.0-4.3) 08/15/17 03:33 Baso % (Auto) 1.3 % (0.0-1.8) 08/15/17 03:33 Lymph # 2.2 K/mm3 (1.2-5.4) 08/15/17 03:33 [place] # 0.7 K/mm3 (0.0-0.8) 08/15/17 03:33 Eos # 0.1 K/mm3 (0.0-0.4) 08/15/17 03:33 Baso # 0.1 K/mm3 (0.0-0.1) 08/15/17 03:33 Seg Neutrophils % 62.1 % (40.0-70.0) 08/15/17 03:33 Seg Neutrophils # 5.1 K/mm3 (1.8-7.7) 08/15/17 03:33 Sodium 137 mmol/L (137-145) 08/16/17 05:20 Potassium 3.4 mmol/L (3.6-5.0) L 08/16/17 05:20 Chloride 99.0 mmol/L (98-107) 08/16/17 05:20 Carbon Dioxide 27 mmol/L (22-30) 08/16/17 05:20 Anion Gap 14 mmol/L 08/16/17 05:20 BUN 18 mg/dL (9-20) 08/16/17 05:20 Creatinine 1.6 mg/dL (0.8-1.5) H 08/16/17 05:20 Estimated GFR 55 ml/min 08/16/17 05:20 BUN/Creatinine Ratio 11 % 08/16/17 05:20 Glucose 295 mg/dL (75-100) H 08/16/17 05:20 POC Glucose 255 (70-105) H 08/16/17 06:31 Calcium 7.9 mg/dL (8.4-10.2) L 08/16/17 05:20 Magnesium 1.80 mg/dL (1.7-2.3) 08/16/17 05:20 Total Bilirubin 0.30 mg/dL (0.1-1.2) 08/16/17 05:20 Direct Bilirubin < 0.2 mg/dL (0-0.2) 08/16/17 05:20 AST 35 units/L (5-40) 08/16/17 05:20 ALT 37 units/L (7-56) 08/16/17 05:20 Alkaline Phosphatase 80 units/L (35-129) 08/16/17 05:20 Total Creatine Kinase 733 units/L (55-170) H 08/16/17 05:20 CK-MB (CK-2) 8.5 ng/mL (0.0-4.0) H 08/16/17 05:20 CK-MB (CK-2) Rel Index 1.1 (0-4) 08/16/17 05:20 Troponin T 0.028 ng/mL (0.00-0.029) 08/16/17 05:20 NT-Pro-B Natriuret Pep 6176 pg/mL (0-900) H 08/15/17 03:33 Total Protein 5.6 g/dL (6.3-8.2) L 08/16/17 05:20 Albumin 2.7 g/dL (3.9-5) L 08/16/17 05:20 Albumin/Globulin Ratio 0.9 % 08/16/17 05:20 Triglycerides 263 mg/dL (2-149) H 08/15/17 03:33 Cholesterol 183 mg/dL (50-199) 08/15/17 03:33 LDL Cholesterol Direct 112 mg/dL (50-130) 08/15/17 03:33 HDL Cholesterol 41 mg/dL (40-59) 08/15/17 03:33 Cholesterol/HDL Ratio 4.46 % 08/15/17 03:33
[2017-08-16] MEDS ORDERED: Fluarix Quad 2017-2018(36 MOS+ IM ONE (12:00)
--- NOTE | 2017-08-16 12:09 | Consultation ---
History of Present Illness Consult date: 08/16/17 Consult reason: congestive heart failure History of present illness: This is a 51yr old male with history of substance abuse, diabetes, hypertension , dilated nonischemic cardiomyopathy and known noncompliance with medications and dietary restrictions. He receives his usual medical and cardiac care at [facility]. His latest cardiac workup was done a year ago. He had a persantine stress thallium showed no ischemia. An echocardiogram showed a decrease left ventricular ejection fraction 20-25%. He is admitted with CHF exacerbation. Patient reports shortness of breath and bilateral lower extremity edema. Patient admits he ran out of his medications 2 weeks ago. Cardiology consultation was requested. Past History Past Medical History: diabetes, heart failure, hypertension, other (morbid obesity) Past Surgical History: No surgical history Social history: smoking (quit smoking), other (history of recreational drug use cocaine, now denies) Family history: hypertension Medications and Allergies Allergies Allergy/AdvReac Type Severity Reaction Status Date / Time Penicillins Allergy Unknown Verified 06/08/15 07:28 Home Medications Medication Instructions Recorded Confirmed Last Taken Type Carvedilol [Coreg] 25 mg PO BID 03/11/16 08/15/17 1 Day Ago History ~08/19/16 20 Aspirin [Aspirin BABY CHEW TAB] 81 mg PO QDAY tab.chew 08/23/16 08/15/17 Unknown Rx Carvedilol [Coreg] 25 mg PO BID #60 tablet 08/23/16 08/15/17 Unknown Rx amLODIPine [Norvasc] 10 mg PO QDAY #30 tablet 08/23/16 08/15/17 Unknown Rx Furosemide [Lasix TAB] 40 mg PO DAILY@0600 #30 tablet 09/14/16 08/15/17 Unknown Rx Insulin NPH/Regular [NovoLIN 70/30] 25 unit SQ BID #30 units 09/14/16 08/15/17 Unknown Rx Potassium Chloride [K-Dur] 10 meq PO QDAY #30 tablet 09/14/16 08/15/17 Unknown Rx oxyCODONE /ACETAMINOPHEN [Percocet 1 tab PO Q6H PRN #30 tablet 09/14/16 Unknown Rx 5/325 mg] Metoprolol [Lopressor TAB] 50 mg PO BID 08/15/17 08/15/17 Unknown History PROzac 20 mg PO DAILY 08/15/17 08/15/17 Unknown History Active Meds: Active Medications Amlodipine Besylate (Norvasc) 10 mg PO QDAY [facility] Last Admin: 08/16/17 09:29 Dose: 10 mg Aspirin (Baby Aspirin) 81 mg PO QDAY [facility] Last Admin: 08/16/17 09:28 Dose: 81 mg Carvedilol (Coreg) 25 mg PO BID [facility] Last Admin: 08/16/17 09:30 Dose: 25 mg Clonidine HCl (Catapres) 0.1 mg PO Q12HR [facility] Last Admin: 08/16/17 09:31 Dose: 0.1 mg Furosemide (Lasix) 40 mg IV 0600,1800 [facility] Last Admin: 08/16/17 05:54 Dose: 40 mg Hydralazine HCl (Apresoline) 50 mg PO Q8HR [facility] Last Admin: 08/16/17 05:54 Dose: Not Given Hydralazine HCl (Apresoline) 10 mg IV Q4HR PRN PRN Reason: Hypertension Insulin Human Isoph/Insulin Regular (Humulin 70/30) 28 unit SUB-Q BIDDIAB [facility] Oxycodone/Acetaminophen (Percocet 5/325) 1 tab PO Q6H PRN PRN Reason: Pain , Severe (7-10) Last Admin: 08/16/17 04:39 Dose: 1 tab Potassium Chloride (K-Dur) 10 meq PO QDAY [facility] Last Admin: 08/16/17 09:29 Dose: 10 meq Potassium Chloride (K-Dur) 30 meq PO ONCE ONE Stop: 08/16/17 12:27 Physical Examination Vital Signs Temp Pulse Resp BP Pulse Ox 98.6 F 82 26 H 180/125 94 08/15/17 03:12 08/15/17 03:12 08/15/17 03:12 08/15/17 03:12 08/15/17 03:12 General appearance: no acute distress HEENT: Positive: PERRL Cardiac: Positive: Reg Rate and Rhythm Lungs: Positive: Decreased Breath Sounds Neuro: Positive: Grossly Intact Extremities: Present: +1 Edema Results 08/15/17 03:33 08/16/17 05:20 Cardiac Enzymes 08/15/17 08/16/17 08/16/17 Range/Units 21:43 05:20 05:20 AST 35 (5-40) units/L CK-MB (CK-2) 9.8 H 8.5 H (0.0-4.0) ng/mL Comprehensive Metabolic Panel 08/16/17 Range/Units 05:20 Sodium 137 (137-145) mmol/L Potassium 3.4 L (3.6-5.0) mmol/L Chloride 99.0 (98-107) mmol/L Carbon Dioxide 27 (22-30) mmol/L BUN 18 (9-20) mg/dL Creatinine 1.6 H (0.8-1.5) mg/dL Glucose 295 H (75-100) mg/dL Calcium 7.9 L (8.4-10.2) mg/dL Direct Bilirubin < 0.2 (0-0.2) mg/dL AST 35 (5-40) units/L ALT 37 (7-56) units/L Alkaline Phosphatase 80 (35-129) units/L Total Protein 5.6 L (6.3-8.2) g/dL Albumin 2.7 L (3.9-5) g/dL Assessment and Plan Acute on chronic CHF no ischemia by MPI 08/2016 EF 20-25% on echo 08/2016 Hypertension Diabetes Noncompliance with medications and dietary restrictions. Recommendations: Medical therapy for acute on chronic systolic heart failure. Advised dietary restrictions.
[2017-08-16] MEDS ORDERED: K-DUR PO ONE (12:26)
[2017-08-17 05:38] VITALS: BP 146/95
[2017-08-17] MEDS: APRESOLINE PO SCH (05:45)
[2017-08-17] MEDS: PERCOCET 5/325 PO PRN (05:45)
[2017-08-17] MEDS: LASIX IV SCH (05:46)
[2017-08-17] MEDS: COREG PO SCH (09:01)
[2017-08-17] MEDS: CATAPRES PO SCH (09:02)
[2017-08-17] MEDS: BABY ASPIRIN PO SCH (09:02)
[2017-08-17] MEDS: K-DUR PO SCH (09:02)
[2017-08-17] MEDS: NORVASC PO SCH (09:03)
--- NOTE | 2017-08-17 11:04 | Discharge Summary ---
Providers - Providers Date of Admission: 08/15/17 08:24 Date of discharge: 08/17/17 Attending physician: BAY EDWARDS 08/15/17 19:01 Consult to Physician [CONS] Routine Consulting Provider: TRENT OAKES Reason For Exam: acute on chr.Systolic CHF Place consult to:: Dr. Oakes Notified:: nurse Phone number called:: personal cell phone Was contact made?: Yes If yes, spoke with:: Lisseth Time called:: 09:39 Primary care physician: FRANCISCO BREAUX Hospitalization Reason for admission: worsening shortness of breath Condition: Stable Pertinent studies: chest x-ray Cardiology consult Hospital course: 51-year-old male patient with significant past medical history of nonischemic cardiomyopathy ejection fraction of 20% and multiple other medical problems was admitted through emergency room with worsening shortness of breath Patient was initially evaluated symptomatically managed Subsequently seen by cardiology, counseling was done strongly advised to comply with medications diet and doctor's visits Patient also has history of ongoing tobacco use and history of recreational drug use, counseling done and strongly advised to quit Counseling done dietary modification and exercise as tolerated with weight reduction as his morbidly obese Patient verbalized understanding Today's comfortable no new complaints Vital signs are stable Physical examination is unremarkable Clear by cardiology for discharge and follow up with him in the office per schedule Patient was stable at discharge Discharge diagnosis; --Acute on chronic hypoxic respiratory failure: Symptoms improved --acute on chronic systolic congestive heart failure --Nonischemic dilated cardiomyopathy; ejection fraction 20-25% --Nonspecific elevation of cardiac enzymes; --Accelerated Hypertension; well controlled --Acute kidney injury; mild improvement, creatinine 1.7-1.6 Due to vasomotor nephropathy, hypertensive nephropathy --2 diabetes mellitus; uncontrolled secondary to noncompliance with diet and medications --Dyslipidemia; add lipid-lowering medications,Low-cholesterol diet --Morbid obesity; BMI 40.6 --Possible obstructive sleep apnea; patient needs outpatient sleep studies/CPAP /BiPAP at night as needed --medical noncompliance; counseling done patient strongly advised to comply with medications and diet and follow-up visits Disposition: TO HOME OR SELFCARE Time spent for discharge: 32 min Core Measure Documentation - Palliative Care Palliative Care/ Comfort Measures: Not Applicable - Core Measures Any of the following diagnoses?: heart failure - Heart Failure Discharge Requirements SOUTH/ARB for LVSD if EF <40%: Yes Beta ned at discharge: Yes Exam - Constitutional Vitals: Temp Pulse Resp BP Pulse Ox 97.6 F 74 22 146/95 94 08/17/17 05:37 08/17/17 09:03 08/17/17 06:45 08/17/17 09:03 08/17/17 05:37 General appearance: Present: no acute distress, well-nourished - EENT Eyes: Present: PERRL, EOM intact - Neck Neck: Present: supple, normal ROM - Respiratory Respiratory effort: normal Respiratory: bilateral: diminished, rales, negative: rhonchi, wheezing - Cardiovascular Rhythm: regular Heart Sounds: Present: S1 & S2 - Extremities Extremities: no ischemia, No edema Peripheral Pulses: within normal limits - Abdominal General gastrointestinal: Present: soft, non-tender, non-distended, normal bowel sounds - Integumentary Integumentary: Present: clear, warm - Musculoskeletal Musculoskeletal: strength equal bilaterally - Psychiatric Psychiatric: appropriate mood/affect, cooperative - Neurologic Neurologic: CNII-XII intact, moves all extremities Plan Activity: no restrictions Diet: low salt, diabetic, other (cardiac diet) Special Instructions: restrict fluid intake to (< 1200 ml/24hrs) Additional Instructions: Strongly advised to comply with medications diet and follow-up visits Follow up with: FRANCISCO BREAUX MD [Primary Care Provider] - 3-5 Days LADAN HOUSTON MD [Staff Physician] - 7 Days Prescriptions: cloNIDine [Catapres] 0.1 mg PO Q12HR #60 tablet hydrALAZINE [Apresoline TAB] 50 mg PO Q8HR #90 tablet Lisinopril [Prinivil] 5 mg PO DAILY #30 tablet oxyCODONE /ACETAMINOPHEN [Percocet 5/325 mg] 1 tab PO QHS PRN #7 tablet PRN Reason: Pain , Severe (7-10)
== END 2017-08-17 15:08 | disposition home or self-care (01) | DRG 291 ==
LOC: ED 02:58 → 4A 08:24
PROVIDERS: ADMIT Internal Medicine; ATTEND Internal Medicine
PROC: 3E0234Z Introduction of Serum, Toxoid and Vaccine into Muscle, Percutaneous Approach (ICD-10-PCS; principal; 2017-08-16)
PROC: 5A09357 Assistance with Respiratory Ventilation, Less than 24 Consecutive Hours, Continuous Positive Airway Pressure (ICD-10-PCS; 2017-08-17)
DX: I11.0 Hypertensive heart disease with heart failure (principal); J96.21 Acute and chronic respiratory failure with hypoxia; N17.0 Acute kidney failure with tubular necrosis; I50.43 Acute on chronic combined systolic (congestive) and diastolic (congestive) heart failure; I42.0 Dilated cardiomyopathy; E11.9 Type 2 diabetes mellitus without complications; E66.01 Morbid (severe) obesity due to excess calories; E78.5 Hyperlipidemia, unspecified; Z23 Encounter for immunization; Z91.14 Patient's other noncompliance with medication regimen; Z68.39 Body mass index [BMI] 39.0-39.9, adult; Z82.49 Family history of ischemic heart disease and other diseases of the circulatory system; Z88.0 Allergy status to penicillin; Z79.899 Other long term (current) drug therapy; Z79.4 Long term (current) use of insulin; Z87.891 Personal history of nicotine dependence; Z71.89 Other specified counseling
CPT/HCPCS: 36415; 71046; 80048; 80061; 80074; 82550; 82553; 82962; 83036; 83735; 83880; 84484; 85025; 90686; 93005; 93010; 94660; 99406; J0360; J1815; J1940

== ENCOUNTER 2017-10-22 23:08 | Inpatient (IN) | payer OTHER ==
[2017-10-22] MEDS ORDERED: PROVENTIL IH ONE (23:22)
[2017-10-22] MEDS ORDERED: ATROVENT IH ONE (23:22)
[2017-10-22] MEDS ORDERED: NITRO-BID 2% TP ONE (23:31)
[2017-10-22] MEDS ORDERED: LASIX IV ONE (23:31)
[2017-10-22 23:48] LABS: Basophils # (Auto) 0.1 K/mm3 (0.0-0.1); Basophils % (Auto) 1.4 % (0.0-1.8); Eosinophils # (Auto) 0.1 K/mm3 (0.0-0.4); Eosinophils % (Auto) 1.2 % (0.0-4.3); Hematocrit 49.8 % (35.5-45.6); Hemoglobin 16.1 gm/dl (11.8-15.2); Mean Corpuscular HGB Conc 32 % (32-34); Mean Corpuscular Hemoglobin 29 pg (28-32); Mean Corpuscular Volume 90 fl (84-94); Monocytes % (Auto) 12.9 % (0.0-7.3); Platelet Count 202 K/mm3 (140-440); Red Blood Count 5.54 M/mm3 (3.65-5.03); Red Cell Distribution Width 14.7 % (13.2-15.2)
--- NOTE | 2017-10-22 23:58 | XRay Report ---
FINAL REPORT EXAM: XR CHEST 1V AP HISTORY: Shortness of breath TECHNIQUE: Chest single AP PRIORS: Comparison is August 15, 2017 FINDINGS: The cardiac silhouette is moderately enlarged. There is bilateral pulmonary vascular congestion with interstitial prominence at the lung bases. No pleural effusion identified. No evidence for pneumothorax. IMPRESSION: Cardiomegaly with pulmonary vascular congestion likely reflecting mild CHF
[2017-10-23 00:02] LABS: Calcium 7.9 mg/dL (8.4-10.2)
--- NOTE | 2017-10-23 00:05 | Emergency Department Report ---
HPI - General Chief Complaint: Dyspnea/Respdistress Time Seen by Provider: 10/22/17 23:21 - HPI HPI: Room 2 The patient is a 52-year-old male presenting with a chief complaint of shortness of breath. The patient states she's had shortness of breath for the past 3 weeks. Patient states approximately 2 weeks ago he ran out of his Lasix. The patient states for past 2 weeks she has had worsening bilateral lower extremity edema progressing to his groin. The patient states for the past week he's had intermittent sharp left-sided chest pain that also has a squeezing component. Patient admits to nausea and vomiting as well as diaphoresis with his chest pain. The patient states she's had 2 syncopal episodes while walking over the past 3 days. The patient admits to cocaine use yesterday. Upon arrival to the ED the patient was reportedly diaphoretic with increased work of breathing and was subsequently placed on BiPAP prior to my evaluation Location: Chest Duration: [See above] Quality: Sharp and squeezing Severity: Moderate Modifying factors: Exertion causes dyspnea Context: [see above] Mode of transportation: [not driving] ED Past Medical Hx - Past Medical History Previous Medical History?: Yes Hx Hypertension: Yes Hx Congestive Heart Failure: Yes Hx Diabetes: Yes Hx Liver Disease: Yes Hx Renal Disease: Yes Hx Asthma: Yes - Surgical History Past Surgical History?: No - Family History Family history: no significant - Social History Smoking Status: Former Smoker (none 7 years) Substance Use Type: Cocaine (last used yesterday) - Medications Home Medications: Home Medications Medication Instructions Recorded Confirmed Last Taken Type Carvedilol [Coreg] 25 mg PO BID 03/11/16 08/15/17 1 Day Ago History ~08/19/16 20 Aspirin [Aspirin BABY CHEW TAB] 81 mg PO QDAY tab.chew 08/23/16 08/15/17 Unknown Rx Carvedilol [Coreg] 25 mg PO BID #60 tablet 08/23/16 08/15/17 Unknown Rx amLODIPine [Norvasc] 10 mg PO QDAY #30 tablet 08/23/16 08/15/17 Unknown Rx Furosemide [Lasix TAB] 40 mg PO DAILY@0600 #30 tablet 09/14/16 08/15/17 Unknown Rx Potassium Chloride [K-Dur] 10 meq PO QDAY #30 tablet 09/14/16 08/15/17 Unknown Rx PROzac 20 mg PO DAILY 08/15/17 08/15/17 Unknown History Insulin NPH/Regular [NovoLIN 70/30] 28 unit SQ BID #30 units 08/17/17 08/15/17 Unknown Rx Lisinopril [Prinivil] 5 mg PO DAILY #30 tablet 08/17/17 Unknown Rx cloNIDine [Catapres] 0.1 mg PO Q12HR #60 tablet 08/17/17 Unknown Rx hydrALAZINE [Apresoline TAB] 50 mg PO Q8HR #90 tablet 08/17/17 Unknown Rx oxyCODONE /ACETAMINOPHEN [Percocet 1 tab PO QHS PRN #7 tablet 08/17/17 Unknown Rx 5/325 mg] ED Review of Systems ROS: Stated complaint: CP; VIN Other details as noted in HPI Constitutional: diaphoresis Respiratory: shortness of breath, SOB with exertion Cardiovascular: chest pain Gastrointestinal: nausea, vomiting Skin: other (bilateral lower extremity edema) Physical Exam - Physical Exam Vital Signs: Vital Signs 10/22/17 23:11 Pulse Rate 121 H Respiratory 34 H Rate Blood Pressure 191/149 O2 Sat by Pulse 91 Oximetry Physical Exam: GENERAL: The patient is well-developed well-nourished male sitting on stretcher with BiPAP in place. To be in acute distress at this time. [] HEENT: Normocephalic. Atraumatic. Extraocular motions are intact. Patient has moist mucous membranes. NECK: Supple. Trachea midline CHEST/LUNGS: Crackles at the bases bilaterally. There is no respiratory distress noted. HEART/CARDIOVASCULAR: Regular. There is no tachycardia. There is no gallop rub or murmur. ABDOMEN: Abdomen is soft, nontender. Patient has normal bowel sounds. There is no abdominal distention. SKIN: There is no rash. There is 2+ bilateral lower extremity pitting edema. There is no diaphoresis. NEURO: The patient is awake, alert, and oriented. The patient is cooperative. The patient has normal speech MUSCULOSKELETAL: There is no evidence of acute injury. ED Course Vital Signs 10/22/17 23:11 Pulse Rate 121 H Respiratory 34 H Rate Blood Pressure 191/149 O2 Sat by Pulse 91 Oximetry ED Medical Decision Making - Lab Data Result diagrams: 10/22/17 23:14 10/22/17 23:14 Laboratory Tests 10/22/17 10/22/17 10/22/17 23:14 23:14 23:14 WBC 7.8 RBC 5.54 H Hgb 16.1 H Hct 49.8 H MCV 90 MCH 29 MCHC 32 RDW 14.7 Plt Count 202 Lymph % (Auto) 25.0 [place] % (Auto) 12.9 H Eos % (Auto) 1.2 Baso % (Auto) 1.4 Lymph # 2.0 [place] # 1.0 H Eos # 0.1 Baso # 0.1 Seg Neutrophils % 59.5 Seg Neutrophils # 4.7 Sodium 139 Potassium 4.3 Chloride 100.7 Carbon Dioxide 28 Anion Gap 15 BUN 16 Creatinine 1.5 Estimated GFR 59 BUN/Creatinine Ratio 11 Glucose 209 H Calcium 7.9 L Troponin T 0.040 H NT-Pro-B Natriuret Pep 97808 H - EKG Data -: EKG Interpreted by Me EKG shows normal: sinus rhythm Rate: normal - EKG Data When compared to previous EKG there are: no significant change Interpretation: unchanged when compared t (08/15/2017), nonspecific ST-T wave james (T-wave inversions in leads 1 and aVL) - Radiology Data Radiology results: report reviewed (chest x-ray), image reviewed (chest x-ray) interpreted by me: Chest [id number]. No pneumothorax [address] [address] XRay Report Signed Patient: CHARITY ADEN MR#: [id number] : 1965 Acct:[id number] Age/Sex: 52 / M ADM Date: 10/22/17 Loc: ED Attending Dr: Ordering Physician: MERCEDES CORONEL MD Date of Service: 10/22/17 Procedure(s): XR chest 1V ap Accession Number(s): [id number] cc: MERCEDES CORONEL MD Fluoro Time In Minutes: FINAL REPORT EXAM: XR CHEST 1V AP HISTORY: Shortness of breath TECHNIQUE: Chest single AP PRIORS: Comparison is August 15, 2017 FINDINGS: The cardiac silhouette is moderately enlarged. There is bilateral pulmonary vascular congestion with interstitial prominence at the lung bases. No pleural effusion identified. No evidence for pneumothorax. IMPRESSION: Cardiomegaly with pulmonary vascular congestion likely reflecting mild CHF Transcribed By: JEANNIE Dictated By: DALE VIDAL MD Electronically Authenticated By: DALE VIDAL MD Signed Date/Time: 10/22/172353 DD/ 53 TD/TT: 10/22/172353 - Differential Diagnosis CHF exacerbation, ACS, Critical care attestation.: If time is entered above; I have spent that time in minutes in the direct care of this critically ill patient, excluding procedure time. ED Disposition Clinical Impression: Chest pain, CHF exacerbation, Cocaine use Disposition: OP ADMIT IP TO THIS HOSP Is pt being admited?: Yes Does the pt Need Aspirin: No (elevated creatinine. Will use Plavix) Condition: Fair Instructions: Chest Pain (ED) Referrals: PRIMARY CARE, [Primary Care Provider] - 3-5 Days Time of Disposition: 00:56 (hospitalist paged (Dr. Manuela Lai))
[2017-10-23] MEDS ORDERED: LASIX ONE (00:28)
[2017-10-23] MEDS ORDERED: PLAVIX PO ONE (00:55)
[2017-10-23 01:43] LABS: Chol/HDL Ratio 3.82 %
[2017-10-23] MEDS ORDERED: CATAPRES PO ONE (01:44)
[2017-10-23] MEDS ORDERED: CATAPRES ONE (01:44)
[2017-10-23] MEDS ORDERED: APRESOLINE IV PRN (02:22)
[2017-10-23] MEDS ORDERED: APRESOLINE IV ONE (02:22)
--- NOTE | 2017-10-23 02:24 | History and Physical Report ---
History of Present Illness Date of examination: 10/23/17 History of present illness: 50 year-old man with a history of CHF, hypertension, diabetes complicated by neuropathy, comes emergency room with complaints of shortness breath, dyspnea on exertion, lower extremity edema, PND. Also complained that his groin has gotten bigger, symptoms have been ongoing for one week. Patient stated that he ran out of Lasix 1 week. Patient also complaining of chest pain in the epigastric area which he described as a sharp pain, intermittent in nature lasting for 1 minute, intensity 4/10, no radiation, Luis identify exacerbating or relieving factors. Admits to nausea vomiting, no diaphoresis or palpitation. Complains that he had syncopal eyes over the last 1 week twice , for approximately 1 minute. The patient stated that he has been having syncopal episode for a few years now Review of systems Constitutional: no weight loss, chills Ears, eyes, nose, mouth and throat: no nasal congestion, no nasal discharge, no sinus pressure, no vision change, no red eye. Neck: No neck pain or rigidity. Cardiovascular: no palpitations Respiratory: No cough Gastrointestinal: no abdominal pain, hematochezia Genitourinary : no dysuria, frequency , no hematuria Musculoskeletal: no joint swelling or muscle ache Integumentary: no rash, no pruritis Neurological: no parathesias, no numbness, no focal weakness Endocrine: no cold or heat intolerance, no polyuria or polydipsia Hematologic/Lymphatic: no easy bruising, no easy bleeding, no gland swelling Allergic/Immunologic: no urticaria, no angioedema. PAST SURGICAL HISTORY: None SOCIAL HISTORY: Alcohol and cocaine use , no tobacco FAMILY HISTORY: Hypertension Medications and Allergies Allergies Allergy/AdvReac Type Severity Reaction Status Date / Time Penicillins Allergy Unknown Verified 06/08/15 07:28 Home Medications Medication Instructions Recorded Confirmed Last Taken Type Carvedilol [Coreg] 25 mg PO BID 03/11/16 08/15/17 1 Day Ago History ~08/19/16 20 Aspirin [Aspirin BABY CHEW TAB] 81 mg PO QDAY tab.chew 08/23/16 08/15/17 Unknown Rx Carvedilol [Coreg] 25 mg PO BID #60 tablet 08/23/16 08/15/17 Unknown Rx amLODIPine [Norvasc] 10 mg PO QDAY #30 tablet 08/23/16 08/15/17 Unknown Rx Furosemide [Lasix TAB] 40 mg PO DAILY@0600 #30 tablet 09/14/16 08/15/17 Unknown Rx Potassium Chloride [K-Dur] 10 meq PO QDAY #30 tablet 09/14/16 08/15/17 Unknown Rx PROzac 20 mg PO DAILY 08/15/17 08/15/17 Unknown History Insulin NPH/Regular [NovoLIN 70/30] 28 unit SQ BID #30 units 08/17/17 08/15/17 Unknown Rx Lisinopril [Prinivil] 5 mg PO DAILY #30 tablet 08/17/17 Unknown Rx cloNIDine [Catapres] 0.1 mg PO Q12HR #60 tablet 08/17/17 Unknown Rx hydrALAZINE [Apresoline TAB] 50 mg PO Q8HR #90 tablet 08/17/17 Unknown Rx oxyCODONE /ACETAMINOPHEN [Percocet 1 tab PO QHS PRN #7 tablet 08/17/17 Unknown Rx 5/325 mg] Active Meds: Active Medications Hydralazine HCl (Apresoline) 10 mg IV ONCE ONE Stop: 10/23/17 02:23 Hydralazine HCl (Apresoline) 5 mg IV Q6HR PRN PRN Reason: Hypertension Exam - Physical Exam Narrative exam: Gen. appearance: Patient lying in bed, no apparent distress HEENT: Normocephalic, atraumatic, pupils equally round and reactive to light, extraocular movement intact, and no sclericterus,. No JVD or thyromegaly or nodule,neck supple, no carotid bruit ,mucous membranes moist, no exudate or erythema Heart: S1, S2, regular rate and rhythm Lungs: Crackles bilaterally, breathing comfortable Abdomen: Positive bowel sounds, nontender, nondistended, no organomegaly Extremity: Positive edema, no cyanosis, clubbing Skin: No rash, nodules, warm, dry Neuro: Oriented 3, cranial nerves II-12 intact, speech is fluent, motor and sensory intact - Constitutional Vitals: Temp Pulse Resp BP Pulse Ox 96 H 16 195/124 99 10/23/17 02:01 10/23/17 02:01 10/23/17 02:01 10/23/17 02:01 Results - Labs CBC & Chem 7: 10/22/17 23:14 10/22/17 23:14 Labs: Abnormal lab results 10/22/17 10/22/17 10/22/17 Range/Units 23:14 23:14 23:14 RBC 5.54 H (3.65-5.03) M/mm3 Hgb 16.1 H (11.8-15.2) gm/dl Hct 49.8 H (35.5-45.6) % [place] % (Auto) 12.9 H (0.0-7.3) % [place] # 1.0 H (0.0-0.8) K/mm3 Glucose 209 H (75-100) mg/dL Calcium 7.9 L (8.4-10.2) mg/dL Troponin T 0.040 H (0.00-0.029) ng/mL NT-Pro-B Natriuret Pep 64944 H (0-900) pg/mL Assessment and Plan Assessment CHF exacerbation, acute on chronic diastolic Syncope Hypertension Diabetes complicated by neuropathy Admits medicine Start diuresis with IV Lasix Start Beta ned, SOUTH inhibitor, aspirin Check cardiac enzymes,recent echo done Check CT chest, rule out PE Check fingersticks and initiate insulin sliding scale Start DVT prophylaxis
[2017-10-23] MEDS ORDERED: PROVENTIL IH PRN (02:32)
[2017-10-23] MEDS ORDERED: D50W (25GM) Syringe IV PRN (02:32)
[2017-10-23] MEDS ORDERED: ZOFRAN IV PRN (02:32)
[2017-10-23] MEDS ORDERED: TYLENOL PO PRN (02:32)
[2017-10-23] MEDS ORDERED: SODIUM CHLORIDE FLUSH SYRINGE 10 ML IV PRN (02:32)
[2017-10-23 03:18] LABS: Creatine Kinase MB 13.6 ng/mL (0.0-4.0)
[2017-10-23] MEDS: LASIX IV SCH ×2 (05:50→17:42)
[2017-10-23] MEDS: HumuLIN R SUB-Q SCH ×4 (07:30→21:23)
[2017-10-23] MEDS ORDERED: LOVENOX SUB-Q SCH (10:00)
[2017-10-23] MEDS: SODIUM CHLORIDE FLUSH SYRINGE 10 ML IV SCH (10:00)
[2017-10-23 10:42] LABS: Creatine Kinase MB 12.7 ng/mL (0.0-4.0)
[2017-10-23] MEDS: BABY ASPIRIN PO SCH (11:28)
[2017-10-23] MEDS: CATAPRES PO SCH ×2 (11:28→21:15)
[2017-10-23] MEDS: PROzac PO SCH (11:29)
[2017-10-23] MEDS: NORVASC PO SCH (11:29)
[2017-10-23] MEDS: ZESTRIL PO SCH (11:29)
[2017-10-23] MEDS: COREG PO SCH ×2 (11:30→21:13)
--- NOTE | 2017-10-23 14:20 | Consultation ---
History of Present Illness Consult date: 10/23/17 Consult reason: chest pain, congestive heart failure History of present illness: The patient is a 52-year-old man with a history of chronic hypertension, diabetes, obstructive sleep apnea and a dilated nonischemic cardiomyopathy. A year ago, an echocardiogram reported left ventricle ejection fraction 20-25%. Following that, the patient has been poorly compliant with medical therapy for his cardiomyopathy and his hypertension, poorly compliant with outpatient cardiology office visits, and presents at the current time with shortness of breath and atypical chest pain. On presentation, he was severely hypertensive 191/149, and admits to not having taken his Intensive therapy for several weeks. Chest x-ray reveals cardiomegaly but no significant interstitial edema. EKG was normal sinus rhythm with poor R-wave progression, possible old anterior myocardial infarction. Currently, he is on the medical floor, looks and feels better, no acute symptoms. Past History Past Medical History: heart failure, hypertension Medications and Allergies Allergies Allergy/AdvReac Type Severity Reaction Status Date / Time Penicillins Allergy Unknown Verified 06/08/15 07:28 Home Medications Medication Instructions Recorded Confirmed Last Taken Type Carvedilol [Coreg] 25 mg PO BID 03/11/16 10/23/17 1 Day Ago History ~08/19/16 20 Aspirin [Aspirin BABY CHEW TAB] 81 mg PO QDAY tab.chew 08/23/16 10/23/17 Unknown Rx Carvedilol [Coreg] 25 mg PO BID #60 tablet 08/23/16 10/23/17 Unknown Rx amLODIPine [Norvasc] 10 mg PO QDAY #30 tablet 08/23/16 10/23/17 Unknown Rx Furosemide [Lasix TAB] 40 mg PO DAILY@0600 #30 tablet 09/14/16 10/23/17 Unknown Rx Potassium Chloride [K-Dur] 10 meq PO QDAY #30 tablet 09/14/16 10/23/17 Unknown Rx FLUoxetine [PROzac] 20 mg PO QDAY #0 08/15/17 10/23/17 Unknown History Insulin NPH/Regular [NovoLIN 70/30] 28 unit SQ BID #30 units 08/17/17 10/23/17 Unknown Rx Lisinopril [Prinivil] 5 mg PO DAILY #30 tablet 08/17/17 10/23/17 Unknown Rx cloNIDine [Catapres] 0.1 mg PO Q12HR #60 tablet 08/17/17 10/23/17 Unknown Rx hydrALAZINE [Apresoline TAB] 50 mg PO Q8HR #90 tablet 08/17/17 10/23/17 Unknown Rx Active Meds: Active Medications Acetaminophen (Tylenol) 650 mg PO Q4H PRN PRN Reason: Pain MILD(1-3)/Fever >100.5/PARIS Albuterol (Proventil) 2.5 mg IH Q3HRT PRN PRN Reason: Shortness Of Breath Amlodipine Besylate (Norvasc) 10 mg PO QDAY [facility] Last Admin: 10/23/17 11:29 Dose: 10 mg Aspirin (Baby Aspirin) 81 mg PO QDAY [facility] Last Admin: 10/23/17 11:28 Dose: 81 mg Carvedilol (Coreg) 25 mg PO BID [facility] Last Admin: 10/23/17 11:30 Dose: 25 mg Clonidine HCl (Catapres) 0.1 mg PO Q12HR [facility] Last Admin: 10/23/17 11:28 Dose: 0.1 mg Dextrose (D50w (25gm) Syringe) 50 ml IV PRN PRN PRN Reason: Hypoglycemia Enoxaparin Sodium (Lovenox) 40 mg SUB-Q QDAY [facility] Fluoxetine HCl (Prozac) 20 mg PO DAILY [facility] Last Admin: 10/23/17 11:29 Dose: 20 mg Furosemide (Lasix) 40 mg IV BID@0600,1800 [facility] Last Admin: 10/23/17 05:50 Dose: 40 mg Hydralazine HCl (Apresoline) 5 mg IV Q6H PRN PRN Reason: Hypertension Milrinone Lactate/Dextrose (Milrinone-D5w 20 Mg/100 Ml) 20 mg in 100 mls @ 14.85 mls/hr IV TITR [facility] Stop: 10/26/17 13:59 Insulin Human Isoph/Insulin Regular (Humulin 70/30) 28 unit SUB-Q BID [facility] Last Admin: 10/23/17 11:30 Dose: 28 unit Insulin Human Regular (Humulin R) 0 units SUB-Q ACHS [facility]; Protocol Last Admin: 10/23/17 12:00 Dose: 4 units Lisinopril (Zestril) 5 mg PO DAILY [facility] Last Admin: 10/23/17 11:29 Dose: 5 mg Ondansetron HCl (Zofran) 4 mg IV Q8H PRN PRN Reason: Nausea And Vomiting Oxycodone/Acetaminophen (Percocet 5/325) 1 tab PO Q6H PRN PRN Reason: Pain, Moderate (4-6) Sodium Chloride (Sodium Chloride Flush Syringe 10 Ml) 10 ml IV BID [facility] Last Admin: 10/23/17 10:00 Dose: 10 ml Sodium Chloride (Sodium Chloride Flush Syringe 10 Ml) 10 ml IV PRN PRN PRN Reason: LINE FLUSH Last Admin: 10/23/17 05:48 Dose: 10 ml Review of Systems Cardiovascular: chest pain, orthopnea, edema, shortness of breath, no palpitations, no rapid/irregular heart beat, no syncope, no lightheadedness Physical Examination Vital Signs Pulse Resp BP Pulse Ox 121 H 34 H 191/149 91 10/22/17 23:11 10/22/17 23:11 10/22/17 23:11 10/22/17 23:11 General appearance: no acute distress HEENT: Positive: PERRL Neck: Positive: neck supple Cardiac: Positive: Reg Rate and Rhythm Lungs: Positive: Decreased Breath Sounds Neuro: Positive: Grossly Intact Abdomen: Positive: Soft Male genitourinary: Positive: deferred Skin: Positive: Clear Extremities: Present: +1 Edema Results 10/22/17 23:14 10/22/17 23:14 Cardiac Enzymes 10/23/17 10/23/17 Range/Units 02:47 09:23 CK-MB (CK-2) 13.6 H 12.7 H (0.0-4.0) ng/mL Lipids 10/22/17 Range/Units 23:14 Triglycerides 121 (2-149) mg/dL Cholesterol 153 (50-199) mg/dL HDL Cholesterol 40 (40-59) mg/dL Cholesterol/HDL Ratio 3.82 % CBC 10/22/17 Range/Units 23:14 WBC 7.8 (4.5-11.0) K/mm3 RBC 5.54 H (3.65-5.03) M/mm3 Hgb 16.1 H (11.8-15.2) gm/dl Hct 49.8 H (35.5-45.6) % Plt Count 202 (140-440) K/mm3 Lymph # 2.0 (1.2-5.4) K/mm3 [place] # 1.0 H (0.0-0.8) K/mm3 Eos # 0.1 (0.0-0.4) K/mm3 Baso # 0.1 (0.0-0.1) K/mm3 Comprehensive Metabolic Panel 10/22/17 Range/Units 23:14 Sodium 139 (137-145) mmol/L Potassium 4.3 (3.6-5.0) mmol/L Chloride 100.7 (98-107) mmol/L Carbon Dioxide 28 (22-30) mmol/L BUN 16 (9-20) mg/dL Creatinine 1.5 (0.8-1.5) mg/dL Glucose 209 H (75-100) mg/dL Calcium 7.9 L (8.4-10.2) mg/dL EKG interpretations - Telemetry EKG Rhythm: Sinus Rhythm Assessment and Plan - Patient Problems (1) Acute on chronic systolic heart failure Current Visit: Yes Status: Acute Plan to address problem: We will optimize heart failure medical therapy with afterload reducing agents, diuretics and beta blockers. A trial of intravenous milrinone. (2) Uncontrolled hypertension Current Visit: Yes Status: Acute Plan to address problem: Aggressive blood pressure control with optimal medical therapy and dietary salt restriction. (3) Dilated cardiomyopathy Current Visit: Yes Status: Acute Plan to address problem: Ultimately, the patient will be recommended for aggressive outpatient follow-up , and consideration of ICD therapy if cardiomyopathy persists after 6-9 months of optimal medical therapy.
--- NOTE | 2017-10-23 18:31 | Event Note ---
Date: 10/23/17 Patient seen and evaluated ChF exacerbation Cont present treatment Check ECHO and optimize medications
[2017-10-23] MEDS: PERCOCET 5/325 PO PRN (20:13)
[2017-10-23] MEDS: MILRINONE-D5W 20 MG/100 ML 20 MG/100 ML BAG IV SCH (20:21)
[2017-10-24] MEDS: PERCOCET 5/325 PO PRN ×3 (02:27→18:00)
[2017-10-24 05:02] LABS: Basophils # (Auto) 0.1 K/mm3 (0.0-0.1); Eosinophils # (Auto) 0.1 K/mm3 (0.0-0.4); Eosinophils % (Auto) 1.8 % (0.0-4.3); Hematocrit 44.3 % (35.5-45.6); Hemoglobin 15.3 gm/dl (11.8-15.2); Lymphocytes # (Auto) 1.3 K/mm3 (1.2-5.4); Lymphocytes % (Auto) 17.9 % (13.4-35.0); Mean Corpuscular HGB Conc 35 % (32-34); Mean Corpuscular Hemoglobin 31 pg (28-32); Mean Corpuscular Volume 88 fl (84-94); Monocytes # (Auto) 0.9 K/mm3 (0.0-0.8); Monocytes % (Auto) 12.8 % (0.0-7.3); Platelet Count 176 K/mm3 (140-440); Red Blood Count 5.03 M/mm3 (3.65-5.03); Red Cell Distribution Width 14.5 % (13.2-15.2)
[2017-10-24 05:16] LABS: BUN/Creatinine Ratio 13; Blood Urea Nitrogen 17 mg/dL (9-20); Hemolysis Index 19
[2017-10-24] MEDS: LASIX IV SCH ×2 (07:02→18:00)
--- NOTE | 2017-10-24 07:17 | XRay Report ---
FINAL REPORT EXAM: XR HAND 2V LT HISTORY: Pt c/o pain to left pinky finger TECHNIQUE: AP and lateral views of the left hand were submitted. FINDINGS: There is a cortical deformity along the base of the proximal phalanx of the 5th finger seen on the AP view. Because of overlap it is not seen on the lateral view. An oblique view was not included. There is mild narrowing of several of the distal interphalangeal joints of the 2nd through 5th fingers. The wrist joint is not show any acute changes. IMPRESSION: Cortical deformity along the base of the proximal phalanx of the 5th finger seen only on the AP view. A displaced fracture cannot be excluded. Repeat imaging is recommended of the hand to include oblique view with fingers more splayed. Arthritic changes noted involving several of the distal interphalangeal joints of the fingers.
[2017-10-24] MEDS: HumuLIN R SUB-Q SCH ×3 (07:56→17:54)
[2017-10-24] MEDS ORDERED: LOVENOX SUB-Q SCH (10:00)
[2017-10-24] MEDS ORDERED: K-DUR PO NR (10:30)
[2017-10-24] MEDS: MILRINONE-D5W 20 MG/100 ML 20 MG/100 ML BAG IV SCH (10:43)
[2017-10-24] MEDS: SODIUM CHLORIDE FLUSH SYRINGE 10 ML IV SCH (10:51)
[2017-10-24] MEDS: BABY ASPIRIN PO SCH (10:52)
[2017-10-24] MEDS: CATAPRES PO SCH (10:52)
[2017-10-24] MEDS: COREG PO SCH (10:53)
[2017-10-24] MEDS: NORVASC PO SCH (10:55)
[2017-10-24] MEDS: ZESTRIL PO SCH (10:56)
[2017-10-24] MEDS: PROzac PO SCH (10:56)
--- NOTE | 2017-10-24 13:54 | Progress Note ---
<DYAN MEDINA - Last Filed: 10/24/17 13:54> Assessment and Plan Acute on chronic CHF Noncompliance with medical therapy and outpatient f/u Hypertension Diabetes Obstructive sleep apnea Dilated nonischemic cardiomyopathy. no ischemia by MPI 08/2016 EF 15-20% on echo this admission Non-compliant with medical therapy and outpatient cardiology office visits Recommendations: Continue aggressive management for heart failure with IV milrinone, diuretics, afterload reduction and beta ned therapy Subjective Date of service: 10/24/17 Interval history: IV milrinone continues. Patient reports shortness of breath with minimal exertion. No reported events on telemetry monitoring. Objective Vital Signs Temp Pulse Resp BP Pulse Ox 10/24/17 11:00 96 H 10/24/17 10:53 94 H 178/97 10/24/17 10:52 94 H 177/97 10/24/17 08:18 97.8 F 94 H 20 178/97 97 10/24/17 03:52 98.4 F 92 H 20 138/87 97 10/24/17 02:18 95 10/23/17 23:57 98.4 F 94 H 20 146/85 92 10/23/17 22:00 89 28 H 96 10/23/17 21:36 96 10/23/17 21:15 89 139/76 10/23/17 21:13 89 139/76 10/23/17 19:37 98.1 F 89 20 139/76 93 10/23/17 18:45 88 10/23/17 17:05 97.9 F 18 160/111 - Physical Examination General: No Apparent Distress HEENT: Positive: PERRL Neck: Positive: neck supple Cardiac: Positive: Reg Rate and Rhythm Lungs: Positive: Decreased Breath Sounds Neuro: Positive: Grossly Intact Extremities: Present: +3 Edema - Labs and Meds CBC 10/24/17 Range/Units 04:38 WBC 7.0 (4.5-11.0) K/mm3 RBC 5.03 (3.65-5.03) M/mm3 Hgb 15.3 H (11.8-15.2) gm/dl Hct 44.3 (35.5-45.6) % Plt Count 176 (140-440) K/mm3 Lymph # 1.3 (1.2-5.4) K/mm3 [place] # 0.9 H (0.0-0.8) K/mm3 Eos # 0.1 (0.0-0.4) K/mm3 Baso # 0.1 (0.0-0.1) K/mm3 Comprehensive Metabolic Panel 10/24/17 Range/Units 04:38 Sodium 136 L (137-145) mmol/L Potassium 3.5 L (3.6-5.0) mmol/L Chloride 96.8 L (98-107) mmol/L Carbon Dioxide 31 H (22-30) mmol/L BUN 17 (9-20) mg/dL Creatinine 1.3 (0.8-1.5) mg/dL Glucose 190 H (75-100) mg/dL Calcium 8.0 L (8.4-10.2) mg/dL <TRENT OAKES - Last Filed: 10/24/17 19:10> Assessment and Plan - Patient Problems (1) Acute on chronic systolic heart failure Current Visit: Yes Status: Acute Plan to address problem: Medical therapy for heart failure exacerbation. (2) Uncontrolled hypertension Current Visit: Yes Status: Acute (3) Dilated cardiomyopathy Current Visit: Yes Status: Acute Objective Vital Signs Temp Pulse Resp BP Pulse Ox 10/24/17 18:06 143/105 10/24/17 17:06 97.8 F 94 H 18 143/106 94 10/24/17 11:49 97.9 F 89 20 136/84 92 10/24/17 11:00 96 H 10/24/17 10:53 94 H 178/97 10/24/17 10:52 94 H 177/97 10/24/17 08:18 97.8 F 94 H 20 178/97 97 10/24/17 03:52 98.4 F 92 H 20 138/87 97 10/24/17 02:18 95 10/23/17 23:57 98.4 F 94 H 20 146/85 92 10/23/17 22:00 89 28 H 96 10/23/17 21:36 96 10/23/17 21:15 89 139/76 10/23/17 21:13 89 139/76 10/23/17 19:37 98.1 F 89 20 139/76 93 - Labs and Meds CBC 10/24/17 Range/Units 04:38 WBC 7.0 (4.5-11.0) K/mm3 RBC 5.03 (3.65-5.03) M/mm3 Hgb 15.3 H (11.8-15.2) gm/dl Hct 44.3 (35.5-45.6) % Plt Count 176 (140-440) K/mm3 Lymph # 1.3 (1.2-5.4) K/mm3 [place] # 0.9 H (0.0-0.8) K/mm3 Eos # 0.1 (0.0-0.4) K/mm3 Baso # 0.1 (0.0-0.1) K/mm3 Comprehensive Metabolic Panel 10/24/17 Range/Units 04:38 Sodium 136 L (137-145) mmol/L Potassium 3.5 L (3.6-5.0) mmol/L Chloride 96.8 L (98-107) mmol/L Carbon Dioxide 31 H (22-30) mmol/L BUN 17 (9-20) mg/dL Creatinine 1.3 (0.8-1.5) mg/dL Glucose 190 H (75-100) mg/dL Calcium 8.0 L (8.4-10.2) mg/dL
--- NOTE | 2017-10-24 18:11 | Progress Note ---
Assessment and Plan Assessment and plan: Pt is a 52 yo man with h/o mo bmi 43, htn, isidro, dm type 2 and dilated cmp who pw sob. He was admitted for chf ex and started on primacor drip by dr. Cordova -A/c systolic heart failure: iv lasix -syncope related to above -hypokalemia: replete and recheck am -uncontrolled dm2: add ssi, ada. -htn urgency: treat with iv antihypertensives prn -dvt ppx: sq lovenox History Interval history: Patient was seen and examined. Follow-up on current diagnosis. Overnight uneventful. Patient denies any chest pain, nausea/vomiting. Imaging, nursing note, chart, labs and old chart reviewed. Discussed with patient. Less SOB. He c.o migraine attack Hospitalist Physical - Physical exam Narrative exam: GEN: WDWN, NAD, Awake, Alert, Orientated HEENT: NCAT, EOMI, PERRL, OP Clear NECK: supple, no adenopathy, no thyromegaly,+ JVD CVS/HEART: RRR, normal S1S2, pulses present bilaterally CHEST/LUNGS: bilateral crackles Symmetrical chest expansion, good air entry bilaterally GI/Abdomen: soft, NTND, good bowel sounds, no guarding or rebound /Bladder: no suprapubic tenderness, no CVA or paraspinal tenderness EXT/Skin: ble pitting leg edema MSK: FROM x 4 Neuro: CN 2-12 grossly intact, no new focal deficits Psych: calm - Constitutional Vitals: Temp Pulse Resp BP Pulse Ox 97.8 F 94 H 18 143/105 94 10/24/17 17:06 10/24/17 17:06 10/24/17 17:06 10/24/17 18:06 10/24/17 17:06 General appearance: Present: no acute distress Results - Labs CBC & Chem 7: 10/24/17 04:38 10/24/17 04:38 Labs: Laboratory Last Values WBC 7.0 K/mm3 (4.5-11.0) 10/24/17 04:38 RBC 5.03 M/mm3 (3.65-5.03) 10/24/17 04:38 Hgb 15.3 gm/dl (11.8-15.2) H 10/24/17 04:38 Hct 44.3 % (35.5-45.6) 10/24/17 04:38 MCV 88 fl (84-94) 10/24/17 04:38 MCH 31 pg (28-32) 10/24/17 04:38 MCHC 35 % (32-34) H 10/24/17 04:38 RDW 14.5 % (13.2-15.2) 10/24/17 04:38 Plt Count 176 K/mm3 (140-440) 10/24/17 04:38 Lymph % (Auto) 17.9 % (13.4-35.0) 10/24/17 04:38 [place] % (Auto) 12.8 % (0.0-7.3) H 10/24/17 04:38 Eos % (Auto) 1.8 % (0.0-4.3) 10/24/17 04:38 Baso % (Auto) 1.0 % (0.0-1.8) 10/24/17 04:38 Lymph # 1.3 K/mm3 (1.2-5.4) 10/24/17 04:38 [place] # 0.9 K/mm3 (0.0-0.8) H 10/24/17 04:38 Eos # 0.1 K/mm3 (0.0-0.4) 10/24/17 04:38 Baso # 0.1 K/mm3 (0.0-0.1) 10/24/17 04:38 Seg Neutrophils % 66.5 % (40.0-70.0) 10/24/17 04:38 Seg Neutrophils # 4.7 K/mm3 (1.8-7.7) 10/24/17 04:38 D-Dimer 224.29 ng/mlDDU (0-234) 10/23/17 02:41 Sodium 136 mmol/L (137-145) L 10/24/17 04:38 Potassium 3.5 mmol/L (3.6-5.0) L 10/24/17 04:38 Chloride 96.8 mmol/L (98-107) L 10/24/17 04:38 Carbon Dioxide 31 mmol/L (22-30) H 10/24/17 04:38 Anion Gap 12 mmol/L 10/24/17 04:38 BUN 17 mg/dL (9-20) 10/24/17 04:38 Creatinine 1.3 mg/dL (0.8-1.5) 10/24/17 04:38 Estimated GFR > 60 ml/min 10/24/17 04:38 BUN/Creatinine Ratio 13 % 10/24/17 04:38 Glucose 190 mg/dL (75-100) H 10/24/17 04:38 POC Glucose 93 (70-105) 10/24/17 17:16 Hemoglobin A1c 9.1 % (4-6) H 10/23/17 02:47 Calcium 8.0 mg/dL (8.4-10.2) L 10/24/17 04:38 Total Creatine Kinase 1065 units/L (55-170) H 10/23/17 09:23 CK-MB (CK-2) 12.7 ng/mL (0.0-4.0) H 10/23/17 09:23 CK-MB (CK-2) Rel Index 1.1 (0-4) 10/23/17 09:23 Troponin T 0.031 ng/mL (0.00-0.029) H 10/23/17 09:23 NT-Pro-B Natriuret Pep 72786 pg/mL (0-900) H 10/22/17 23:14 Triglycerides 121 mg/dL (2-149) 10/22/17 23:14 Cholesterol 153 mg/dL (50-199) 10/22/17 23:14 LDL Cholesterol Direct 100 mg/dL (50-130) 10/22/17 23:14 HDL Cholesterol 40 mg/dL (40-59) 10/22/17 23:14 Cholesterol/HDL Ratio 3.82 % 10/22/17 23:14
[2017-10-24 20:05] VITALS: BP 160/101
== END 2017-10-24 21:00 | disposition left against medical advice (07) | DRG 293 ==
LOC: ED 23:08 → 4A 10-23 02:32
PROVIDERS: ADMIT Internal Medicine; ATTEND Internal Medicine
PROC: 5A09457 Assistance with Respiratory Ventilation, 24-96 Consecutive Hours, Continuous Positive Airway Pressure (ICD-10-PCS; principal; 2017-10-22)
DX: I11.0 Hypertensive heart disease with heart failure (principal); I50.43 Acute on chronic combined systolic (congestive) and diastolic (congestive) heart failure; I42.0 Dilated cardiomyopathy; R55 Syncope and collapse; F14.90 Cocaine use, unspecified, uncomplicated; E11.40 Type 2 diabetes mellitus with diabetic neuropathy, unspecified; G47.33 Obstructive sleep apnea (adult) (pediatric); E87.6 Hypokalemia; I16.0 Hypertensive urgency; J45.909 Unspecified asthma, uncomplicated; Z87.891 Personal history of nicotine dependence; Z82.49 Family history of ischemic heart disease and other diseases of the circulatory system; Z88.0 Allergy status to penicillin; Z91.19 Patient's noncompliance with other medical treatment and regimen
CPT/HCPCS: 36415; 71045; 80048; 80061; 82550; 82553; 82962; 83036; 83880; 84484; 85025; 85379; 93005; 93010; 93306; 94640; 94660; 94760; J0360; J1650; J1815; J1940; J2260

== ENCOUNTER 2017-11-13 02:55 | Inpatient (IN) | payer SELFPAY ==
[2017-11-13] MEDS ORDERED: ASPIRIN PO ONE (03:25)
[2017-11-13] MEDS ORDERED: APRESOLINE IV ONE (03:51)
[2017-11-13 04:00] LABS: Basophils # (Auto) 0.1 K/mm3 (0.0-0.1); Basophils % (Auto) 1.3 % (0.0-1.8); Eosinophils # (Auto) 0.1 K/mm3 (0.0-0.4); Eosinophils % (Auto) 2.1 % (0.0-4.3); Hematocrit 46.1 % (35.5-45.6); Hemoglobin 14.9 gm/dl (11.8-15.2); Lymphocytes # (Auto) 1.7 K/mm3 (1.2-5.4); Lymphocytes % (Auto) 26.9 % (13.4-35.0); Mean Corpuscular HGB Conc 32 % (32-34); Mean Corpuscular Hemoglobin 29 pg (28-32); Mean Corpuscular Volume 90 fl (84-94); Monocytes # (Auto) 0.8 K/mm3 (0.0-0.8); Monocytes % (Auto) 11.9 % (0.0-7.3); Platelet Count 235 K/mm3 (140-440); Red Blood Count 5.14 M/mm3 (3.65-5.03); Red Cell Distribution Width 14.4 % (13.2-15.2)
[2017-11-13 04:26] LABS: Calcium 7.8 mg/dL (8.4-10.2)
--- NOTE | 2017-11-13 04:42 | XRay Report ---
FINAL REPORT PROCEDURE: XR CHEST 1V AP TECHNIQUE: Chest radiograph anteroposterior view. CPT 99229 HISTORY: shortness of breath and CP COMPARISON: 10/22/2017 FINDINGS: Heart: Heart size is enlarged but stable. Mediastinum/Vessels: Normal. Lungs/Pleural space: Normal. Bony thorax: No acute osseous abnormality. Life support devices: None. IMPRESSION: There is no evidence of acute infiltrate or effusion. Stable cardiomegaly..
[2017-11-13 04:54] LABS: Chol/HDL Ratio 4.21 %
[2017-11-13] MEDS ORDERED: LASIX IV ONE (05:07)
--- NOTE | 2017-11-13 05:51 | Emergency Department Report ---
HPI - General Chief Complaint: Dyspnea/Respdistress Time Seen by Provider: 11/13/17 05:03 - HPI HPI: The patient is a 52-year-old male with a sniffing history of congestive heart failure, who presents for evaluation of dyspnea. The patient reports progressive dyspnea for the past week, worsening and constant since last night, severe, exacerbated with exertion or lying flat, improved with sitting up. He also reports associated lateral lower leg swelling. The patient denies trauma to the thoracic cage, chest pain, syncope, hemoptysis, unilateral leg swelling, recent immobilization. ED Past Medical Hx - Past Medical History Hx Hypertension: Yes Hx Congestive Heart Failure: Yes Hx Diabetes: Yes Hx Liver Disease: Yes Hx Renal Disease: Yes Hx Asthma: Yes - Social History Smoking Status: Never Smoker Substance Use Type: None - Medications Home Medications: Home Medications Medication Instructions Recorded Confirmed Last Taken Type Carvedilol [Coreg] 25 mg PO BID 03/11/16 10/23/17 1 Day Ago History ~08/19/16 20 Aspirin [Aspirin BABY CHEW TAB] 81 mg PO QDAY tab.chew 08/23/16 10/23/17 Unknown Rx Carvedilol [Coreg] 25 mg PO BID #60 tablet 08/23/16 10/23/17 Unknown Rx amLODIPine [Norvasc] 10 mg PO QDAY #30 tablet 08/23/16 10/23/17 Unknown Rx Furosemide [Lasix TAB] 40 mg PO DAILY@0600 #30 tablet 09/14/16 10/23/17 Unknown Rx Potassium Chloride [K-Dur] 10 meq PO QDAY #30 tablet 09/14/16 10/23/17 Unknown Rx FLUoxetine [PROzac] 20 mg PO QDAY #0 08/15/17 10/23/17 Unknown History Insulin NPH/Regular [NovoLIN 70/30] 28 unit SQ BID #30 units 08/17/17 10/23/17 Unknown Rx Lisinopril [Prinivil] 5 mg PO DAILY #30 tablet 08/17/17 10/23/17 Unknown Rx cloNIDine [Catapres] 0.1 mg PO Q12HR #60 tablet 08/17/17 10/23/17 Unknown Rx hydrALAZINE [Apresoline TAB] 50 mg PO Q8HR #90 tablet 08/17/17 10/23/17 Unknown Rx ED Review of Systems ROS: Stated complaint: VIN Other details as noted in HPI Constitutional: denies: fever ENT: denies: throat or neck pain Respiratory: denies: cough reports shortness of breath Cardiovascular: denies: chest pain Endocrine: denies unexplained weight loss or gain Gastrointestinal: denies: abdominal pain, nausea Genitourinary: denies: dysuria Musculoskeletal: denies: leg swelling Skin: denies: rash Neurological: denies: headache Hematological/Lymphatic: denies: easy bleeding or easy bruising Psych: denies sadness or hopelessness Physical Exam - Physical Exam Vital Signs: Vital Signs 11/13/17 11/13/17 11/13/17 02:53 03:15 03:26 Temperature 98.1 F 98.6 F Pulse Rate 97 H 91 H 92 H Respiratory 24 28 H 29 H Rate Blood Pressure 178/119 176/117 O2 Sat by Pulse 97 92 97 Oximetry 11/13/17 11/13/17 11/13/17 03:27 03:39 03:46 Temperature Pulse Rate 90 88 Respiratory 29 H 24 30 H Rate Blood Pressure 211/144 O2 Sat by Pulse 97 99 98 Oximetry 11/13/17 11/13/17 11/13/17 04:00 04:11 04:15 Temperature Pulse Rate 86 85 Respiratory 19 26 H Rate Blood Pressure 205/137 211/137 187/120 O2 Sat by Pulse 95 99 Oximetry 11/13/17 11/13/17 11/13/17 04:16 04:30 04:46 Temperature Pulse Rate 86 86 83 Respiratory 28 H 27 H 28 H Rate Blood Pressure 205/137 187/120 187/120 O2 Sat by Pulse 98 94 99 Oximetry 11/13/17 11/13/17 11/13/17 05:00 05:16 05:30 Temperature Pulse Rate 84 86 Respiratory 26 H 26 H 32 H Rate Blood Pressure 211/148 211/148 171/108 O2 Sat by Pulse 98 99 95 Oximetry Physical Exam: General: well-nourished, well-developed, no acute distress Head: Normocephalic, atraumatic Eyes: normal sclera ENT: Mucous membranes are pink and moist Neck: trachea midline, neck supple, No neck stiffness, no cervical adenopathy Respiratory: Diminished breath sounds and crackles present basilar lung dong bilaterally, positive costal retractions, positive mild sore distress Cardio: S1 and S2 present, no murmurs, rubs, gallops, capillary refill is brisk Abdomen: Normoactive bowel sounds, soft abdomen, no rigidity, no guarding or rebound tenderness Chest WALL/Back: No tenderness to palpation of the chest wall, no CVA tenderness with percussion Musc: 1+ pitting edema Skin: No rash Neuro: no facial drooping, normal speech Psych: Normal affect ED Course Vital Signs 11/13/17 11/13/17 11/13/17 02:53 03:15 03:26 Temperature 98.1 F 98.6 F Pulse Rate 97 H 91 H 92 H Respiratory 24 28 H 29 H Rate Blood Pressure 178/119 176/117 O2 Sat by Pulse 97 92 97 Oximetry 11/13/17 11/13/17 11/13/17 03:27 03:39 03:46 Temperature Pulse Rate 90 88 Respiratory 29 H 24 30 H Rate Blood Pressure 211/144 O2 Sat by Pulse 97 99 98 Oximetry 11/13/17 11/13/17 11/13/17 04:00 04:11 04:15 Temperature Pulse Rate 86 85 Respiratory 19 26 H Rate Blood Pressure 205/137 211/137 187/120 O2 Sat by Pulse 95 99 Oximetry 11/13/17 11/13/17 11/13/17 04:16 04:30 04:46 Temperature Pulse Rate 86 86 83 Respiratory 28 H 27 H 28 H Rate Blood Pressure 205/137 187/120 187/120 O2 Sat by Pulse 98 94 99 Oximetry 11/13/17 11/13/17 11/13/17 05:00 05:16 05:30 Temperature Pulse Rate 84 86 Respiratory 26 H 26 H 32 H Rate Blood Pressure 211/148 211/148 171/108 O2 Sat by Pulse 98 99 95 Oximetry ED Medical Decision Making - Lab Data Result diagrams: 11/13/17 03:35 11/13/17 03:35 - Medical Decision Making The patient was seen and examined by myself. The patient is placed on a catering driver and continuous pulse ox. On initial evaluation, the patient was found to be in respiratory distress the patient is placed on BiPAP.. Evaluation orders were placed. Lab results reveal elevated BUN of 28, elevated creatinine 1.8, and elevated BNP of 7000, consistent with congestive heart failure. Chest x-ray exhibits cardiomegaly. The patient is given IV Lasix for treatment of congestive heart failure and IV hydralazine for his elevated blood pressure. The patient was reevaluated and found to remain with severely elevated blood pressure despite antihypertensives. A nitroglycerin drip was ordered. The on- call hospitalist service was contacted. They agreed to admit the patient for further treatment and close monitoring. The ED admit order was placed. The patient was admitted in guarded condition. Critical care attestation.: If time is entered above; I have spent that time in minutes in the direct care of this critically ill patient, excluding procedure time. ED Disposition Clinical Impression: Acute on chronic systolic heart failure, Cocaine use, TARI (acute kidney injury) , Hypertensive emergency Disposition: DC-09 OP ADMIT IP TO THIS HOSP Is pt being admited?: Yes Does the pt Need Aspirin: Yes Condition: Critical Instructions: Hypertension (ED) Referrals: FRANCISCO BREAUX MD [Primary Care Provider] - 3-5 Days Time of Disposition: 05:52
[2017-11-13] MEDS ORDERED: HumuLIN R IV ONE (05:52)
[2017-11-13] MEDS ORDERED: BABY ASPIRIN PO ONE (05:53)
[2017-11-13] MEDS ORDERED: TRIDIL DRIP 50MG/250ML 50 MG/250 ML BOTTLE IV SCH (06:00)
[2017-11-13 06:58] LABS: Amphetamine Screen,Urine PRESUMPTIVE NEGATIVE; Benzodiazepines Screen,Urine PRESUMPTIVE NEGATIVE; Cannabinoid Screen,Urine PRESUMPTIVE NEGATIVE; Methadone Screen,Urine PRESUMPTIVE NEGATIVE; Opiate Screen,Urine PRESUMPTIVE NEGATIVE
--- NOTE | 2017-11-13 07:20 | Progress Note ---
Hospitalist Physical - Constitutional Vitals: Temp Pulse Resp BP Pulse Ox 98.6 F 86 21 179/117 96 11/13/17 03:15 11/13/17 05:16 11/13/17 06:15 11/13/17 06:30 11/13/17 06:30 Results - Labs CBC & Chem 7: 11/13/17 03:35 11/13/17 03:35 Labs: Laboratory Last Values WBC 6.4 K/mm3 (4.5-11.0) 11/13/17 03:35 RBC 5.14 M/mm3 (3.65-5.03) H 11/13/17 03:35 Hgb 14.9 gm/dl (11.8-15.2) 11/13/17 03:35 Hct 46.1 % (35.5-45.6) H 11/13/17 03:35 MCV 90 fl (84-94) 11/13/17 03:35 MCH 29 pg (28-32) 11/13/17 03:35 MCHC 32 % (32-34) 11/13/17 03:35 RDW 14.4 % (13.2-15.2) 11/13/17 03:35 Plt Count 235 K/mm3 (140-440) 11/13/17 03:35 Lymph % (Auto) 26.9 % (13.4-35.0) 11/13/17 03:35 [place] % (Auto) 11.9 % (0.0-7.3) H 11/13/17 03:35 Eos % (Auto) 2.1 % (0.0-4.3) 11/13/17 03:35 Baso % (Auto) 1.3 % (0.0-1.8) 11/13/17 03:35 Lymph # 1.7 K/mm3 (1.2-5.4) 11/13/17 03:35 [place] # 0.8 K/mm3 (0.0-0.8) 11/13/17 03:35 Eos # 0.1 K/mm3 (0.0-0.4) 11/13/17 03:35 Baso # 0.1 K/mm3 (0.0-0.1) 11/13/17 03:35 Seg Neutrophils % 57.8 % (40.0-70.0) 11/13/17 03:35 Seg Neutrophils # 3.7 K/mm3 (1.8-7.7) 11/13/17 03:35 POC ABG pH 7.357 (7.35-7.45) 11/13/17 05:54 POC ABG pCO2 51.3 (35-45) H 11/13/17 05:54 POC ABG pO2 103 (80-105) 11/13/17 05:54 POC ABG HCO3 28.8 11/13/17 05:54 POC ABG Total CO2 30 11/13/17 05:54 POC ABG O2 Sat 98 11/13/17 05:54 POC ABG Base Excess 3 11/13/17 05:54 FiO2 35 % 11/13/17 05:54 Sodium 135 mmol/L (137-145) L 11/13/17 03:35 Potassium 3.6 mmol/L (3.6-5.0) 11/13/17 03:35 Chloride 100.4 mmol/L (98-107) 11/13/17 03:35 Carbon Dioxide 18 mmol/L (22-30) L 11/13/17 03:35 Anion Gap 20 mmol/L 11/13/17 03:35 BUN 28 mg/dL (9-20) H 11/13/17 03:35 Creatinine 1.8 mg/dL (0.8-1.5) H 11/13/17 03:35 Estimated GFR 48 ml/min 11/13/17 03:35 BUN/Creatinine Ratio 16 % 11/13/17 03:35 Glucose 323 mg/dL (75-100) H 11/13/17 03:35 Calcium 7.8 mg/dL (8.4-10.2) L 11/13/17 03:35 Troponin T 0.032 ng/mL (0.00-0.029) H 11/13/17 06:49 NT-Pro-B Natriuret Pep 7376 pg/mL (0-900) H 11/13/17 03:35 Triglycerides 132 mg/dL (2-149) 11/13/17 03:35 Cholesterol 139 mg/dL (50-199) 11/13/17 03:35 LDL Cholesterol Direct 94 mg/dL (50-130) 11/13/17 03:35 HDL Cholesterol 33 mg/dL (40-59) L 11/13/17 03:35 Cholesterol/HDL Ratio 4.21 % 11/13/17 03:35 Urine Opiates Screen Presumptive negative 11/13/17 Unknown Urine Methadone Screen Presumptive negative 11/13/17 Unknown Ur Barbiturates Screen Presumptive negative 11/13/17 Unknown Ur Phencyclidine Scrn Presumptive negative 11/13/17 Unknown Ur Amphetamines Screen Presumptive negative 11/13/17 Unknown U Benzodiazepines Scrn Presumptive negative 11/13/17 Unknown U Marijuana (THC) Screen Presumptive negative 11/13/17 Unknown
[2017-11-13 07:28] LABS: Cocaine Screen,Urine PRESUMPTIVE POSITIVE
--- NOTE | 2017-11-13 07:37 | History and Physical Report ---
History of Present Illness Date of examination: 11/13/17 Date of admission: 11/13/17 06:39 Chief complaint: Worsening shortness of breath for the last 1 week History of present illness: 52-year-old morbidly obese -[place] male patient well known to our service multiple admissions in the past with significant past medical history of dilated cardiomyopathy with ejection fraction of 10-20% in October 2017, noncompliant with medications, history of cocaine abuse Presented to the emergency room with worsening shortness of breath and uncontrolled blood pressures, patient has not been taking medicines for the last 1-2 weeks, reports he does not have insurance or money to fill the prescriptions Patient also complains of vague chest pain, patient was initially evaluated in the ED noted to have hypertensive emergency, started on Tridil drip and is being admitted to ICU, ED already consulted behavioral health assistant for critical care consult. At the time of my evaluation patient says that he feels slightly better, still has shortness of breath and chest pain Denies nausea or vomiting or abdominal pain Denies headache or dizziness, has orthopnea. Denies paroxysmal nocturnal dyspnea Past History Past Medical History: diabetes, heart failure, hypertension, other ( cardiomyopathy) Past Surgical History: No surgical history Social history: alcohol abuse, other (cocaine use) Family history: hypertension Medications and Allergies Allergies Allergy/AdvReac Type Severity Reaction Status Date / Time Penicillins Allergy Unknown Verified 06/08/15 07:28 Home Medications Medication Instructions Recorded Confirmed Last Taken Type Carvedilol [Coreg] 25 mg PO BID 03/11/16 10/23/17 1 Day Ago History ~08/19/16 20 Aspirin [Aspirin BABY CHEW TAB] 81 mg PO QDAY tab.chew 08/23/16 10/23/17 Unknown Rx Carvedilol [Coreg] 25 mg PO BID #60 tablet 08/23/16 10/23/17 Unknown Rx amLODIPine [Norvasc] 10 mg PO QDAY #30 tablet 08/23/16 10/23/17 Unknown Rx Furosemide [Lasix TAB] 40 mg PO DAILY@0600 #30 tablet 09/14/16 10/23/17 Unknown Rx Potassium Chloride [K-Dur] 10 meq PO QDAY #30 tablet 09/14/16 10/23/17 Unknown Rx FLUoxetine [PROzac] 20 mg PO QDAY #0 08/15/17 10/23/17 Unknown History Insulin NPH/Regular [NovoLIN 70/30] 28 unit SQ BID #30 units 08/17/17 10/23/17 Unknown Rx Lisinopril [Prinivil] 5 mg PO DAILY #30 tablet 08/17/17 10/23/17 Unknown Rx cloNIDine [Catapres] 0.1 mg PO Q12HR #60 tablet 08/17/17 10/23/17 Unknown Rx hydrALAZINE [Apresoline TAB] 50 mg PO Q8HR #90 tablet 08/17/17 10/23/17 Unknown Rx Active Meds: Active Medications Amlodipine Besylate (Norvasc) 10 mg PO QDAY [facility] Aspirin (Baby Aspirin) 81 mg PO QDAY [facility] Carvedilol (Coreg) 25 mg PO BID [facility] Clonidine HCl (Catapres) 0.1 mg PO Q12HR [facility] Fluoxetine HCl (Prozac) 20 mg PO QDAY [facility] Hydralazine HCl (Apresoline) 50 mg PO Q8HR ROX[facility] Nitroglycerin/Dextrose (Tridil Drip 50mg/250ml) 50 mg in 250 mls @ 3 mls/hr IV TITR ROXANA; Protocol Last Titration: 11/13/17 06:45 Dose: 25 mcg/min, 7.5 mls/hr Insulin Human Isoph/Insulin Regular (Humulin 70/30) 28 unit SUB-Q BID [facility] Lisinopril (Zestril) 5 mg PO DAILY [facility] Potassium Chloride (K-Dur) 10 meq PO QDAY [facility] Review of Systems Constitutional: fatigue, no weight loss, no weight gain Ears, nose, mouth and throat: no nasal congestion, no nasal discharge Cardiovascular: chest pain, orthopnea, shortness of breath, dyspnea on exertion Respiratory: no cough, no hemoptysis Gastrointestinal: no abdominal pain, no nausea, no vomiting Genitourinary Male: no dysuria, no flank pain Musculoskeletal: no myalgias, no arthritis Integumentary: no rash, no lesions Neurological: weakness, no seizures, no syncope Psychiatric: no anxiety, no depression Endocrine: no cold intolerance, no heat intolerance, no polydipsia, no polyuria Hematologic/Lymphatic: no easy bruising, no easy bleeding Allergic/Immunologic: no urticaria, no allergic rhinitis Exam - Constitutional Vitals: Temp Pulse Resp BP Pulse Ox 98.6 F 86 21 179/117 96 11/13/17 03:15 11/13/17 05:16 11/13/17 06:15 11/13/17 06:30 11/13/17 06:30 General appearance: Present: mild distress, well-nourished, obese (morbidly obese) - EENT Eyes: Present: PERRL, EOM intact - Respiratory Respiratory effort: normal Respiratory: bilateral: diminished, rales, negative: rhonchi, wheezing - Cardiovascular Rhythm: regular Heart Sounds: Present: S1 & S2 - Extremities Extremities: no ischemia Extremity abnormal: edema - Abdominal General gastrointestinal: Present: soft, non-tender, non-distended, normal bowel sounds - Integumentary Integumentary: Present: clear, warm - Musculoskeletal Musculoskeletal: strength equal bilaterally, generalized weakness - Psychiatric Psychiatric: appropriate mood/affect, cooperative - Neurologic Neurologic: CNII-XII intact, moves all extremities Results - Labs CBC & Chem 7: 11/13/17 03:35 11/13/17 03:35 Labs: Abnormal lab results 11/13/17 11/13/17 11/13/17 Range/Units 03:35 03:35 05:54 RBC 5.14 H (3.65-5.03) M/mm3 Hct 46.1 H (35.5-45.6) % [place] % (Auto) 11.9 H (0.0-7.3) % POC ABG pCO2 51.3 H (35-45) Sodium 135 L (137-145) mmol/L Carbon Dioxide 18 L (22-30) mmol/L BUN 28 H (9-20) mg/dL Creatinine 1.8 H (0.8-1.5) mg/dL Glucose 323 H (75-100) mg/dL Calcium 7.8 L (8.4-10.2) mg/dL Troponin T 0.036 H (0.00-0.029) ng/mL NT-Pro-B Natriuret Pep 7376 H (0-900) pg/mL HDL Cholesterol 33 L (40-59) mg/dL 11/13/17 Range/Units 06:49 RBC (3.65-5.03) M/mm3 Hct (35.5-45.6) % [place] % (Auto) (0.0-7.3) % POC ABG pCO2 (35-45) Sodium (137-145) mmol/L Carbon Dioxide (22-30) mmol/L BUN (9-20) mg/dL Creatinine (0.8-1.5) mg/dL Glucose (75-100) mg/dL Calcium (8.4-10.2) mg/dL Troponin T 0.032 H (0.00-0.029) ng/mL NT-Pro-B Natriuret Pep (0-900) pg/mL HDL Cholesterol (40-59) mg/dL Assessment and Plan --Hypertensive emergency; Tridil drip was started by ER, Resume home antihypertensives and when necessary medications Titrated and DC Tridil drip if blood pressures improve --Acute hypoxic respiratory failure; Requiring BiPAP, oxygen titrated to O2 sats more than 90%, anti-failure medications, possible pulmonary consult if needed --Acute on chronic systolic congestive heart failure; Most recent ejection fraction is 10-20 [, placed on aggressive diuresis Resume home anti-failure medications, cardiology consultation if needed --Nonischemic dilated cardiomyopathy; ejection fraction 10-20%[October 2017] Low-sodium diet, fluid restriction, anti-failure medications, supportive care --Acute kidney injury; closely monitor renal function, avoid nephrotoxins Nephrology consultation if no improvement --Type 2 diabetes mellitus; on insulin Accu-Chek sliding scale coverage ADA diet and insulin Hb A1c in 10/2017 is 9.1 --Acute on chronic kidney disease stage III; closely monitor renal function Avoid nephrotoxin, consider nephrology evaluation if no improvement --Morbid obesity; BMI 43.1 ,counseling done --Possible obstructive sleep apnea; CPAP/BiPAP at night --DVT prophylaxis; Lovenox Plan of care is reviewed with the patient and his nurse Disposition; admit to ICU on Tridil drip, resume home antihypertensives Titrated DC Tridil drip if blood pressures are reasonably controlled May transfer to telemetry if remains stable Critical care time 40 minutes
[2017-11-13] MEDS: ZESTRIL PO SCH (09:22)
[2017-11-13] MEDS: COREG PO SCH ×2 (09:23→21:30)
[2017-11-13] MEDS: CATAPRES PO SCH ×2 (09:23→21:29)
[2017-11-13] MEDS: NORVASC PO SCH (09:23)
[2017-11-13] MEDS: K-DUR PO SCH (09:23)
[2017-11-13] MEDS: BABY ASPIRIN PO SCH (09:23)
[2017-11-13] MEDS: PROzac PO SCH (09:24)
[2017-11-13] MEDS: HumaLOG SUB-Q SCH ×2 (12:28→16:30)
[2017-11-13] MEDS: APRESOLINE PO SCH ×2 (13:01→22:30)
--- NOTE | 2017-11-13 15:03 | Consultation ---
History of Present Illness Consult date: 11/13/17 Requesting physician: B[place] EDWARDS Reason for consult: dyspnea History of present illness: 52 yo with severe CHF, admits to running out of his BP meds recently. Developed increased SOB, "passing out", increased LE edema not responsive to Lasix. No fevers, chills, cough, sputum, hemoptysis. Had some anterior chest pain, gone now. Active Medications Amlodipine Besylate (Norvasc) 10 mg PO QDAY [facility] Last Admin: 11/13/17 09:23 Dose: 10 mg Aspirin (Baby Aspirin) 81 mg PO QDAY [facility] Last Admin: 11/13/17 09:23 Dose: 81 mg Carvedilol (Coreg) 25 mg PO BID [facility] Last Admin: 11/13/17 09:23 Dose: 25 mg Clonidine HCl (Catapres) 0.1 mg PO Q12HR [facility] Last Admin: 11/13/17 09:23 Dose: 0.1 mg Fluoxetine HCl (Prozac) 20 mg PO QDAY [facility] Last Admin: 11/13/17 09:24 Dose: 20 mg Furosemide (Lasix) 40 mg IV 0600,1800 [facility] Hydralazine HCl (Apresoline) 50 mg PO Q8HR [facility] Last Admin: 11/13/17 13:01 Dose: 50 mg Nitroglycerin/Dextrose (Tridil Drip 50mg/250ml) 50 mg in 250 mls @ 3 mls/hr IV TITR [facility]; Protocol Last Titration: 11/13/17 07:50 Dose: 25 mcg/min, 7.5 mls/hr Insulin Human Isoph/Insulin Regular (Humulin 70/30) 28 unit SUB-Q BIDDIAB [facility] Last Admin: 11/13/17 09:21 Dose: 28 unit Insulin Human Lispro (Humalog) 0 unit SUB-Q ACHS [facility]; Protocol Last Admin: 11/13/17 12:28 Dose: Not Given Lisinopril (Zestril) 5 mg PO DAILY [facility] Last Admin: 11/13/17 09:22 Dose: 5 mg Potassium Chloride (K-Dur) 10 meq PO QDAY [facility] Last Admin: 11/13/17 09:23 Dose: 10 meq Past History Past Medical History: diabetes, heart failure, hypertension, other ( cardiomyopathy) Past Surgical History: No surgical history Social history: alcohol abuse, full code, other (cocaine use). denies: smoking , IV drug use Family history: hypertension Medications and Allergies Allergies Allergy/AdvReac Type Severity Reaction Status Date / Time Penicillins Allergy Unknown Verified 06/08/15 07:28 Home Medications Medication Instructions Recorded Confirmed Last Taken Type Carvedilol [Coreg] 25 mg PO BID 03/11/16 10/23/17 1 Day Ago History ~08/19/16 20 Aspirin [Aspirin BABY CHEW TAB] 81 mg PO QDAY tab.chew 08/23/16 10/23/17 Unknown Rx Carvedilol [Coreg] 25 mg PO BID #60 tablet 08/23/16 10/23/17 Unknown Rx amLODIPine [Norvasc] 10 mg PO QDAY #30 tablet 08/23/16 10/23/17 Unknown Rx Furosemide [Lasix TAB] 40 mg PO DAILY@0600 #30 tablet 09/14/16 10/23/17 Unknown Rx Potassium Chloride [K-Dur] 10 meq PO QDAY #30 tablet 09/14/16 10/23/17 Unknown Rx FLUoxetine [PROzac] 20 mg PO QDAY #0 08/15/17 10/23/17 Unknown History Insulin NPH/Regular [NovoLIN 70/30] 28 unit SQ BID #30 units 08/17/17 10/23/17 Unknown Rx Lisinopril [Prinivil] 5 mg PO DAILY #30 tablet 08/17/17 10/23/17 Unknown Rx cloNIDine [Catapres] 0.1 mg PO Q12HR #60 tablet 08/17/17 10/23/17 Unknown Rx hydrALAZINE [Apresoline TAB] 50 mg PO Q8HR #90 tablet 08/17/17 10/23/17 Unknown Rx Active Meds: Active Medications Amlodipine Besylate (Norvasc) 10 mg PO QDAY [facility] Last Admin: 11/13/17 09:23 Dose: 10 mg Aspirin (Baby Aspirin) 81 mg PO QDAY [facility] Last Admin: 11/13/17 09:23 Dose: 81 mg Carvedilol (Coreg) 25 mg PO BID [facility] Last Admin: 11/13/17 09:23 Dose: 25 mg Clonidine HCl (Catapres) 0.1 mg PO Q12HR [facility] Last Admin: 11/13/17 09:23 Dose: 0.1 mg Fluoxetine HCl (Prozac) 20 mg PO QDAY [facility] Last Admin: 11/13/17 09:24 Dose: 20 mg Furosemide (Lasix) 40 mg IV 0600,1800 [facility] Hydralazine HCl (Apresoline) 50 mg PO Q8HR [facility] Last Admin: 11/13/17 13:01 Dose: 50 mg Nitroglycerin/Dextrose (Tridil Drip 50mg/250ml) 50 mg in 250 mls @ 3 mls/hr IV TITR [facility]; Protocol Last Titration: 11/13/17 07:50 Dose: 25 mcg/min, 7.5 mls/hr Insulin Human Isoph/Insulin Regular (Humulin 70/30) 28 unit SUB-Q BIDDIAB [facility] Last Admin: 11/13/17 09:21 Dose: 28 unit Insulin Human Lispro (Humalog) 0 unit SUB-Q ACHS [facility]; Protocol Last Admin: 11/13/17 12:28 Dose: Not Given Lisinopril (Zestril) 5 mg PO DAILY [facility] Last Admin: 11/13/17 09:22 Dose: 5 mg Potassium Chloride (K-Dur) 10 meq PO QDAY [facility] Last Admin: 11/13/17 09:23 Dose: 10 meq Review of Systems All systems: negative Physical Examination Vital signs: Vital Signs Temp Pulse Resp BP Pulse Ox 98.1 F 97 H 24 178/119 97 11/13/17 02:53 11/13/17 02:53 11/13/17 02:53 11/13/17 02:53 11/13/17 02:53 Vital Signs - 24 hr 11/13/17 11/13/17 11/13/17 02:53 03:15 03:26 Temperature 98.1 F 98.6 F Pulse Rate 97 H 91 H 92 H Pulse Rate [ From Monitor] Respiratory 24 28 H 29 H Rate Blood Pressure 178/119 176/117 Blood Pressure [Left] O2 Sat by Pulse 97 92 97 Oximetry 11/13/17 11/13/17 11/13/17 03:27 03:39 03:46 Temperature Pulse Rate 90 88 Pulse Rate [ From Monitor] Respiratory 29 H 24 30 H Rate Blood Pressure 211/144 Blood Pressure [Left] O2 Sat by Pulse 97 99 98 Oximetry 11/13/17 11/13/17 11/13/17 04:00 04:11 04:15 Temperature Pulse Rate 86 85 Pulse Rate [ From Monitor] Respiratory 19 26 H Rate Blood Pressure 205/137 211/137 187/120 Blood Pressure [Left] O2 Sat by Pulse 95 99 Oximetry 11/13/17 11/13/17 11/13/17 04:16 04:30 04:46 Temperature Pulse Rate 86 86 83 Pulse Rate [ From Monitor] Respiratory 28 H 27 H 28 H Rate Blood Pressure 205/137 187/120 187/120 Blood Pressure [Left] O2 Sat by Pulse 98 94 99 Oximetry 11/13/17 11/13/17 11/13/17 05:00 05:16 05:30 Temperature Pulse Rate 84 86 Pulse Rate [ From Monitor] Respiratory 26 H 26 H 32 H Rate Blood Pressure 211/148 211/148 171/108 Blood Pressure [Left] O2 Sat by Pulse 98 99 95 Oximetry 11/13/17 11/13/17 11/13/17 05:46 06:00 06:15 Temperature Pulse Rate Pulse Rate [ From Monitor] Respiratory 24 21 Rate Blood Pressure 171/108 188/116 186/121 Blood Pressure [Left] O2 Sat by Pulse 97 96 91 Oximetry 11/13/17 11/13/17 11/13/17 06:30 07:00 07:46 Temperature Pulse Rate Pulse Rate [ From Monitor] Respiratory 29 H 18 Rate Blood Pressure 179/117 166/111 183/127 Blood Pressure [Left] O2 Sat by Pulse 96 98 95 Oximetry 11/13/17 11/13/17 11/13/17 08:00 08:30 08:38 Temperature 97.6 F Pulse Rate Pulse Rate [ 82 From Monitor] Respiratory 22 Rate Blood Pressure Blood Pressure [Left] O2 Sat by Pulse 98 98 Oximetry 11/13/17 11/13/17 11/13/17 08:41 09:22 09:23 Temperature Pulse Rate 93 H 83 82 Pulse Rate [ From Monitor] Respiratory 18 Rate Blood Pressure 175/126 175/126 Blood Pressure 166/111 [Left] O2 Sat by Pulse 98 Oximetry 11/13/17 11/13/17 11/13/17 10:00 10:36 10:40 Temperature Pulse Rate 82 Pulse Rate [ 80 From Monitor] Respiratory 20 Rate Blood Pressure Blood Pressure [Left] O2 Sat by Pulse 98 88 89 Oximetry 11/13/17 11/13/17 11/13/17 10:50 11:00 11:10 Temperature Pulse Rate Pulse Rate [ From Monitor] Respiratory Rate Blood Pressure Blood Pressure [Left] O2 Sat by Pulse 90 89 90 Oximetry 11/13/17 11/13/17 11/13/17 11:20 11:30 11:40 Temperature Pulse Rate Pulse Rate [ From Monitor] Respiratory Rate Blood Pressure 127/77 127/77 Blood Pressure [Left] O2 Sat by Pulse 89 96 86 Oximetry 11/13/17 11/13/17 11/13/17 11:50 12:00 12:24 Temperature 97.8 F Pulse Rate 75 Pulse Rate [ 76 From Monitor] Respiratory 27 H Rate Blood Pressure 127/77 127/77 Blood Pressure [Left] O2 Sat by Pulse 91 98 Oximetry 11/13/17 13:01 Temperature Pulse Rate 74 Pulse Rate [ From Monitor] Respiratory Rate Blood Pressure 150/76 Blood Pressure [Left] O2 Sat by Pulse Oximetry General appearance: no acute distress, alert, other (obese) Eyes: non-icteric ENT: oropharynx moist Neck: supple Effort: normal Ascultation: Bilateral: clear Cardiovascular: regular rate and rhythm (no mrg) Gastrointestinal: normoactive bowel sounds, soft, non-tender, non-distended Integumentary: normal Extremities: no cyanosis, pink and warm, edema (1+ bilateral LE edema) normal mental status, non-focal exam, pupils equal and round, CN II-XII normal mood appropriate, affect normal Results - Laboratory Findings CBC and BMP: 11/13/17 03:35 11/13/17 03:35 ABG POC ABG pH 7.357 (7.35-7.45) 11/13/17 05:54 POC ABG pCO2 51.3 (35-45) H 11/13/17 05:54 POC ABG pO2 103 (80-105) 11/13/17 05:54 POC ABG HCO3 28.8 11/13/17 05:54 POC ABG Total CO2 30 11/13/17 05:54 POC ABG O2 Sat 98 11/13/17 05:54 Abnormal lab findings: Abnormal Labs 11/13/17 11/13/17 11/13/17 03:35 03:35 05:54 RBC 5.14 H Hct 46.1 H [place] % (Auto) 11.9 H POC ABG pCO2 51.3 H Sodium 135 L Carbon Dioxide 18 L BUN 28 H Creatinine 1.8 H Glucose 323 H POC Glucose Calcium 7.8 L Troponin T 0.036 H NT-Pro-B Natriuret Pep 7376 H HDL Cholesterol 33 L 11/13/17 11/13/17 11/13/17 06:49 09:25 11:52 RBC Hct [place] % (Auto) POC ABG pCO2 Sodium Carbon Dioxide BUN Creatinine Glucose POC Glucose 122 H Calcium Troponin T 0.032 H 0.039 H D NT-Pro-B Natriuret Pep HDL Cholesterol - Diagnostic Findings Chest x-ray: report reviewed, image reviewed (cardiomegaly, clear lungs) Assessment and Plan Imp: 1. Severe NICMP 2. A/C systolic CHF 3. Malignant HTN 4. Cocaine abuse 5. Acute respiratory failure, hypoxia and hypercapnea 6. ADELINA Rec: 1. BP control 2. Lasix IV 3. Cards consult 4. BIPAP QHS 5. Long-term prognosis is poor due to non-compliance and continued drug abuse Plan of care reviewed with patient, he understands/agrees Thanks for the consult.
[2017-11-13] MEDS: LASIX IV SCH (18:27)
[2017-11-14] MEDS: HumaLOG SUB-Q SCH ×5 (01:12→23:05)
[2017-11-14 04:08] LABS: Basophils % (Auto) 0.3 % (0.0-1.8); Eosinophils # (Auto) 0.2 K/mm3 (0.0-0.4); Eosinophils % (Auto) 2.7 % (0.0-4.3); Hematocrit 45.6 % (35.5-45.6); Hemoglobin 15.2 gm/dl (11.8-15.2); Lymphocytes # (Auto) 1.6 K/mm3 (1.2-5.4); Lymphocytes % (Auto) 26.5 % (13.4-35.0); Mean Corpuscular HGB Conc 33 % (32-34); Mean Corpuscular Hemoglobin 30 pg (28-32); Mean Corpuscular Volume 89 fl (84-94); Monocytes # (Auto) 0.7 K/mm3 (0.0-0.8); Monocytes % (Auto) 11.4 % (0.0-7.3); Platelet Count 223 K/mm3 (140-440); Red Blood Count 5.11 M/mm3 (3.65-5.03); Red Cell Distribution Width 14.3 % (13.2-15.2)
[2017-11-14 04:32] LABS: Creatine Kinase MB 8.1 ng/mL (0.0-4.0)
[2017-11-14 04:34] LABS: Albumin 2.6 g/dL (3.9-5); Calcium 7.9 mg/dL (8.4-10.2)
[2017-11-14] MEDS: APRESOLINE PO SCH ×3 (05:14→21:17)
[2017-11-14] MEDS: LASIX IV SCH ×2 (06:14→17:59)
[2017-11-14] MEDS: PROzac PO SCH (09:19)
[2017-11-14] MEDS: ZESTRIL PO SCH (09:19)
[2017-11-14] MEDS: CATAPRES PO SCH ×2 (09:19→21:16)
[2017-11-14] MEDS: K-DUR PO SCH (09:20)
[2017-11-14] MEDS: COREG PO SCH ×2 (09:20→21:16)
[2017-11-14] MEDS: BABY ASPIRIN PO SCH (09:21)
[2017-11-14] MEDS: NORVASC PO SCH (09:21)
--- NOTE | 2017-11-14 09:31 | Consultation ---
History of Present Illness Consult date: 11/14/17 Consult reason: congestive heart failure History of present illness: The patient is a 52 year old man with a history of chronic hypertension, diabetes, obstructive sleep apnea and a dilated nonischemic cardiomyopathy. An echocardiogram 3 weeks ago documents a left ventricle ejection fraction 15-20%. The patient has been poorly compliant with medical therapy for his cardiomyopathy and his hypertension and poorly compliant with outpatient cardiology office visits. Patient presented with shortness of breath and atypical chest pain. Of note, patient was hospitalized as this hospital 3 weeks ago for acute CHF exacerbation but left against medical advice after two days of medical treatment. On presentation, he was severely hypertensive 211/144, and admits to not having taken his medical therapy for several weeks. Chest x-ray reports cardiomegaly but no significant interstitial edema. EKG was normal sinus rhythm, no acute ischemic changes Past History Past Medical History: diabetes, heart failure, hypertension Social history: alcohol abuse, other (cocaine use) Family history: hypertension Medications and Allergies Allergies Allergy/AdvReac Type Severity Reaction Status Date / Time Penicillins Allergy Unknown Verified 06/08/15 07:28 Home Medications Medication Instructions Recorded Confirmed Last Taken Type Carvedilol [Coreg] 25 mg PO BID 03/11/16 10/23/17 1 Day Ago History ~08/19/16 20 Aspirin [Aspirin BABY CHEW TAB] 81 mg PO QDAY tab.chew 08/23/16 10/23/17 Unknown Rx Carvedilol [Coreg] 25 mg PO BID #60 tablet 08/23/16 10/23/17 Unknown Rx amLODIPine [Norvasc] 10 mg PO QDAY #30 tablet 08/23/16 10/23/17 Unknown Rx Furosemide [Lasix TAB] 40 mg PO DAILY@0600 #30 tablet 09/14/16 10/23/17 Unknown Rx Potassium Chloride [K-Dur] 10 meq PO QDAY #30 tablet 09/14/16 10/23/17 Unknown Rx FLUoxetine [PROzac] 20 mg PO QDAY #0 08/15/17 10/23/17 Unknown History Insulin NPH/Regular [NovoLIN 70/30] 28 unit SQ BID #30 units 08/17/17 10/23/17 Unknown Rx Lisinopril [Prinivil] 5 mg PO DAILY #30 tablet 08/17/17 10/23/17 Unknown Rx cloNIDine [Catapres] 0.1 mg PO Q12HR #60 tablet 08/17/1718 Unknown Rx hydrALAZINE [Apresoline TAB] 50 mg PO Q8HR #90 tablet 08/17/17 10/23/17 Unknown Rx Active Meds: Active Medications Amlodipine Besylate (Norvasc) 10 mg PO QDAY [facility] Last Admin: 11/14/17 09:21 Dose: 10 mg Aspirin (Baby Aspirin) 81 mg PO QDAY [facility] Last Admin: 11/14/17 09:21 Dose: 81 mg Carvedilol (Coreg) 25 mg PO BID [facility] Last Admin: 11/14/17 09:20 Dose: 25 mg Clonidine HCl (Catapres) 0.1 mg PO Q12HR [facility] Last Admin: 11/14/17 09:19 Dose: 0.1 mg Fluoxetine HCl (Prozac) 20 mg PO QDAY [facility] Last Admin: 11/14/17 09:19 Dose: 20 mg Furosemide (Lasix) 40 mg IV 0600,1800 [facility] Last Admin: 11/14/17 06:14 Dose: 40 mg Hydralazine HCl (Apresoline) 50 mg PO Q8HR [facility] Last Admin: 11/14/17 05:14 Dose: 50 mg Nitroglycerin/Dextrose (Tridil Drip 50mg/250ml) 50 mg in 250 mls @ 3 mls/hr IV TITR [facility]; Protocol Last Titration: 11/13/17 11:30 Dose: 0 mcg/min, 0 mls/hr Insulin Human Isoph/Insulin Regular (Humulin 70/30) 28 unit SUB-Q BIDDIAB [facility] Last Admin: 11/14/17 08:18 Dose: 28 unit Insulin Human Lispro (Humalog) 0 unit SUB-Q ACHS [facility]; Protocol Last Admin: 11/14/17 08:19 Dose: 2 unit Lisinopril (Zestril) 5 mg PO DAILY [facility] Last Admin: 11/14/17 09:19 Dose: 5 mg Potassium Chloride (K-Dur) 10 meq PO QDAY [facility] Last Admin: 11/14/17 09:20 Dose: 10 meq Physical Examination Vital Signs Temp Pulse Resp BP Pulse Ox 98.1 F 97 H 24 178/119 97 11/13/17 02:53 11/13/17 02:53 11/13/17 02:53 11/13/17 02:53 11/13/17 02:53 Results 11/14/17 03:37 11/14/17 03:37 Cardiac Enzymes 11/14/17 Range/Units 03:37 AST 43 H (5-40) units/L CK-MB (CK-2) 8.1 H (0.0-4.0) ng/mL CBC 11/14/17 Range/Units 03:37 WBC 6.1 (4.5-11.0) K/mm3 RBC 5.11 H (3.65-5.03) M/mm3 Hgb 15.2 (11.8-15.2) gm/dl Hct 45.6 (35.5-45.6) % Plt Count 223 (140-440) K/mm3 Lymph # 1.6 (1.2-5.4) K/mm3 [place] # 0.7 (0.0-0.8) K/mm3 Eos # 0.2 (0.0-0.4) K/mm3 Baso # 0.0 (0.0-0.1) K/mm3 Comprehensive Metabolic Panel 11/14/17 Range/Units 03:37 Sodium 141 (137-145) mmol/L Potassium 3.6 (3.6-5.0) mmol/L Chloride 102.5 (98-107) mmol/L Carbon Dioxide 27 D (22-30) mmol/L BUN 24 H (9-20) mg/dL Creatinine 1.5 (0.8-1.5) mg/dL Glucose 154 H (75-100) mg/dL Calcium 7.9 L (8.4-10.2) mg/dL AST 43 H (5-40) units/L ALT 32 (7-56) units/L Alkaline Phosphatase 73 (35-129) units/L Total Protein 5.5 L (6.3-8.2) g/dL Albumin 2.6 L (3.9-5) g/dL Assessment and Plan Hypertension Diabetes Obstructive sleep apnea Dilated nonischemic cardiomyopathy no ischemia by MPI 08/2016 EF 15-20% on echo 10/2017 Non-compliant with medical therapy and outpatient cardiology office visits Substance abuse
--- NOTE | 2017-11-14 13:56 | Progress Note ---
Assessment and Plan Assessment and plan: --Hypertensive emergency; Resolved Tridil drip has dc/d. Cont home antihypertensives and when necessary medications Transfer to floor --Acute hypoxic respiratory failure; Requiring BiPAP, oxygen titrated to O2 sats more than 90%, anti-failure medications, possible pulmonary consult if needed --Acute on chronic systolic congestive heart failure; Most recent ejection fraction is 10-20%, placed on aggressive diuresis Resume home anti-failure medications, cardiology following --Nonischemic dilated cardiomyopathy; ejection fraction 10-20%[October 2017] Low-sodium diet, fluid restriction, anti-failure medications, supportive care --Acute kidney injury; closely monitor renal function, avoid nephrotoxins Nephrology consultation if no improvement --Type 2 diabetes mellitus; on insulin Accu-Check sliding scale coverage ADA diet and insulin Hb A1c in 10/2017 is 9.1 --Acute on chronic kidney disease stage III; closely monitor renal function Avoid nephrotoxin, consider nephrology evaluation if no improvement --Morbid obesity; BMI 43.1 ,counseling done --Possible obstructive sleep apnea; CPAP/BiPAP at night Disposition. Transfer to the floor today and likely discharge in a.m. if blood pressure and cardiac status stable. --DVT prophylaxis; Lovenox History Interval history: No new issues Hospitalist Physical - Constitutional Vitals: Temp Pulse Resp BP Pulse Ox 97.6 F 79 18 149/78 97 11/14/17 11:58 11/14/17 13:31 11/14/17 13:31 11/14/17 13:31 11/14/17 13:01 General appearance: Present: no acute distress, well-nourished, obese (morbidly obese) - EENT Eyes: Present: PERRL, EOM intact ENT: hearing intact, clear oral mucosa, dentition normal - Neck Neck: Present: supple, normal ROM - Respiratory Respiratory effort: normal Respiratory: bilateral: CTA - Cardiovascular Rhythm: regular Heart Sounds: Present: S1 & S2. Absent: gallop, rub - Extremities Extremities: no ischemia, No edema, Full ROM - Abdominal General gastrointestinal: soft, non-tender, non-distended, normal bowel sounds - Integumentary Integumentary: Present: clear, warm, dry - Neurologic Neurologic: CNII-XII intact, moves all extremities Results - Labs CBC & Chem 7: 11/14/17 03:37 11/14/17 03:37 Labs: Laboratory Last Values WBC 6.1 K/mm3 (4.5-11.0) 11/14/17 03:37 RBC 5.11 M/mm3 (3.65-5.03) H 11/14/17 03:37 Hgb 15.2 gm/dl (11.8-15.2) 11/14/17 03:37 Hct 45.6 % (35.5-45.6) 11/14/17 03:37 MCV 89 fl (84-94) 11/14/17 03:37 MCH 30 pg (28-32) 11/14/17 03:37 MCHC 33 % (32-34) 11/14/17 03:37 RDW 14.3 % (13.2-15.2) 11/14/17 03:37 Plt Count 223 K/mm3 (140-440) 11/14/17 03:37 Lymph % (Auto) 26.5 % (13.4-35.0) 11/14/17 03:37 Henry % (Auto) 11.4 % (0.0-7.3) H 11/14/17 03:37 Eos % (Auto) 2.7 % (0.0-4.3) 11/14/17 03:37 Baso % (Auto) 0.3 % (0.0-1.8) 11/14/17 03:37 Lymph # 1.6 K/mm3 (1.2-5.4) 11/14/17 03:37 Henry # 0.7 K/mm3 (0.0-0.8) 11/14/17 03:37 Eos # 0.2 K/mm3 (0.0-0.4) 11/14/17 03:37 Baso # 0.0 K/mm3 (0.0-0.1) 11/14/17 03:37 Seg Neutrophils % 59.1 % (40.0-70.0) 11/14/17 03:37 Seg Neutrophils # 3.6 K/mm3 (1.8-7.7) 11/14/17 03:37 POC ABG pH 7.357 (7.35-7.45) 11/13/17 05:54 POC ABG pCO2 51.3 (35-45) H 11/13/17 05:54 POC ABG pO2 103 (80-105) 11/13/17 05:54 POC ABG HCO3 28.8 11/13/17 05:54 POC ABG Total CO2 30 11/13/17 05:54 POC ABG O2 Sat 98 11/13/17 05:54 POC ABG Base Excess 3 11/13/17 05:54 FiO2 35 % 11/13/17 05:54 Sodium 141 mmol/L (137-145) 11/14/17 03:37 Potassium 3.6 mmol/L (3.6-5.0) 11/14/17 03:37 Chloride 102.5 mmol/L (98-107) 11/14/17 03:37 Carbon Dioxide 27 mmol/L (22-30) D 11/14/17 03:37 Anion Gap 15 mmol/L 11/14/17 03:37 BUN 24 mg/dL (9-20) H 11/14/17 03:37 Creatinine 1.5 mg/dL (0.8-1.5) 11/14/17 03:37 Estimated GFR 59 ml/min 11/14/17 03:37 BUN/Creatinine Ratio 16 % 11/14/17 03:37 Glucose 154 mg/dL (75-100) H 11/14/17 03:37 POC Glucose 170 (70-105) H 11/14/17 11:30 Calcium 7.9 mg/dL (8.4-10.2) L 11/14/17 03:37 Phosphorus 3.90 mg/dL (2.5-4.5) 11/14/17 03:37 Magnesium 1.90 mg/dL (1.7-2.3) 11/14/17 03:37 Total Bilirubin 0.30 mg/dL (0.1-1.2) 11/14/17 03:37 AST 43 units/L (5-40) H 11/14/17 03:37 ALT 32 units/L (7-56) 11/14/17 03:37 Alkaline Phosphatase 73 units/L (35-129) 11/14/17 03:37 Total Creatine Kinase 567 units/L (55-170) H 11/14/17 03:37 CK-MB (CK-2) 8.1 ng/mL (0.0-4.0) H 11/14/17 03:37 CK-MB (CK-2) Rel Index 1.4 (0-4) 11/14/17 03:37 Troponin T 0.026 ng/mL (0.00-0.029) 11/14/17 03:37 NT-Pro-B Natriuret Pep 7376 pg/mL (0-900) H 11/13/17 03:35 Total Protein 5.5 g/dL (6.3-8.2) L 11/14/17 03:37 Albumin 2.6 g/dL (3.9-5) L 11/14/17 03:37 Albumin/Globulin Ratio 0.9 % 11/14/17 03:37 Triglycerides 132 mg/dL (2-149) 11/13/17 03:35 Cholesterol 139 mg/dL (50-199) 11/13/17 03:35 LDL Cholesterol Direct 94 mg/dL (50-130) 11/13/17 03:35 HDL Cholesterol 33 mg/dL (40-59) L 11/13/17 03:35 Cholesterol/HDL Ratio 4.21 % 11/13/17 03:35 Urine Opiates Screen Presumptive negative 11/13/17 Unknown Urine Methadone Screen Presumptive negative 11/13/17 Unknown Ur Barbiturates Screen Presumptive negative 11/13/17 Unknown Ur Phencyclidine Scrn Presumptive negative 11/13/17 Unknown Ur Amphetamines Screen Presumptive negative 11/13/17 Unknown U Benzodiazepines Scrn Presumptive negative 11/13/17 Unknown Urine Cocaine Screen Presumptive positive 11/13/17 Unknown U Marijuana (THC) Screen Presumptive negative 11/13/17 Unknown Drugs of Abuse Note Disclamer 11/13/17 Unknown
--- NOTE | 2017-11-14 14:14 | Progress Note ---
Assessment and Plan Imp: 1. Severe NICMP 2. A/C systolic CHF 3. Malignant HTN 4. Cocaine abuse 5. Acute respiratory failure, hypoxia and hypercapnea 6. ADELINA Rec: 1. BP control 2. Lasix IV 3. Cards consult 4. BIPAP QHS 5. Long-term prognosis is poor due to non-compliance and continued drug abuse; counseled re: cocaine abstinence 6. Can be transferred out of ICU Plan of care reviewed with patient, he understands/agrees Subjective Date of service: 11/14/17 Principal diagnosis: CHF Interval history: No events. SOB and LE edema improving. On 1.5L NC. Active Medications Amlodipine Besylate (Norvasc) 10 mg PO QDAY [facility] Last Admin: 11/14/17 09:21 Dose: 10 mg Aspirin (Baby Aspirin) 81 mg PO QDAY [facility] Last Admin: 11/14/17 09:21 Dose: 81 mg Carvedilol (Coreg) 25 mg PO BID [facility] Last Admin: 11/14/17 09:20 Dose: 25 mg Clonidine HCl (Catapres) 0.1 mg PO Q12HR [facility] Last Admin: 11/14/17 09:19 Dose: 0.1 mg Fluoxetine HCl (Prozac) 20 mg PO QDAY [facility] Last Admin: 11/14/17 09:19 Dose: 20 mg Furosemide (Lasix) 40 mg IV 0600,1800 [facility] Last Admin: 11/14/17 06:14 Dose: 40 mg Hydralazine HCl (Apresoline) 50 mg PO Q8HR [facility] Last Admin: 11/14/17 14:04 Dose: 50 mg Nitroglycerin/Dextrose (Tridil Drip 50mg/250ml) 50 mg in 250 mls @ 3 mls/hr IV TITR [facility]; Protocol Last Titration: 11/13/17 11:30 Dose: 0 mcg/min, 0 mls/hr Insulin Human Isoph/Insulin Regular (Humulin 70/30) 28 unit SUB-Q BIDDIAB [facility] Last Admin: 11/14/17 08:18 Dose: 28 unit Insulin Human Lispro (Humalog) 0 unit SUB-Q ACHS [facility]; Protocol Last Admin: 11/14/17 12:00 Dose: 2 unit Lisinopril (Zestril) 5 mg PO DAILY [facility] Last Admin: 11/14/17 09:19 Dose: 5 mg Potassium Chloride (K-Dur) 10 meq PO QDAY [facility] Last Admin: 11/14/17 09:20 Dose: 10 meq Objective Vital Signs - 12hr 11/14/17 11/14/17 11/14/17 02:30 02:46 03:00 Temperature Pulse Rate 72 72 72 Pulse Rate [ From Monitor] Pulse Rate [ Right Dorsalis Pedis] Respiratory 21 17 16 Rate Blood Pressure 150/99 123/84 158/108 O2 Sat by Pulse 95 98 98 Oximetry 11/14/17 11/14/17 11/14/17 03:16 03:30 03:46 Temperature Pulse Rate 72 76 76 Pulse Rate [ From Monitor] Pulse Rate [ Right Dorsalis Pedis] Respiratory 30 H 16 16 Rate Blood Pressure 158/108 158/108 104/80 O2 Sat by Pulse 98 97 99 Oximetry 11/14/17 11/14/17 11/14/17 04:00 04:16 04:20 Temperature 98.1 F Pulse Rate 74 81 81 Pulse Rate [ 75 From Monitor] Pulse Rate [ Right Dorsalis Pedis] Respiratory 10 L 21 26 H Rate Blood Pressure 142/101 142/101 142/101 O2 Sat by Pulse 99 Oximetry 11/14/17 11/14/17 11/14/17 04:30 04:40 04:50 Temperature Pulse Rate 86 79 79 Pulse Rate [ From Monitor] Pulse Rate [ Right Dorsalis Pedis] Respiratory 20 18 18 Rate Blood Pressure 142/101 142/101 142/101 O2 Sat by Pulse Oximetry 11/14/17 11/14/17 11/14/17 05:00 05:10 05:14 Temperature Pulse Rate 75 76 78 Pulse Rate [ From Monitor] Pulse Rate [ Right Dorsalis Pedis] Respiratory 16 15 Rate Blood Pressure 142/101 158/104 158/104 O2 Sat by Pulse 97 99 Oximetry 11/14/17 11/14/17 11/14/17 05:30 06:00 06:30 Temperature Pulse Rate 79 76 78 Pulse Rate [ 80 From Monitor] Pulse Rate [ Right Dorsalis Pedis] Respiratory 26 H 18 20 Rate Blood Pressure 131/82 169/105 168/96 O2 Sat by Pulse 97 98 98 Oximetry 11/14/17 11/14/17 11/14/17 07:01 07:31 07:54 Temperature 97.6 F Pulse Rate 78 79 Pulse Rate [ From Monitor] Pulse Rate [ Right Dorsalis Pedis] Respiratory 15 24 Rate Blood Pressure 163/94 163/94 O2 Sat by Pulse 98 97 Oximetry 11/14/17 11/14/17 11/14/17 08:00 08:01 08:03 Temperature Pulse Rate 78 Pulse Rate [ 75 From Monitor] Pulse Rate [ Right Dorsalis Pedis] Respiratory 18 14 Rate Blood Pressure 159/109 O2 Sat by Pulse 96 100 98 Oximetry 11/14/17 11/14/17 11/14/17 08:30 09:01 09:31 Temperature Pulse Rate 75 82 74 Pulse Rate [ From Monitor] Pulse Rate [ Right Dorsalis Pedis] Respiratory 22 17 27 H Rate Blood Pressure 154/107 154/107 131/84 O2 Sat by Pulse 100 94 92 Oximetry 11/14/17 11/14/17 11/14/17 10:00 10:31 11:01 Temperature Pulse Rate 92 H 73 74 Pulse Rate [ From Monitor] Pulse Rate [ 94 H Right Dorsalis Pedis] Respiratory 20 19 29 H Rate Blood Pressure 137/74 137/74 140/58 O2 Sat by Pulse 96 88 97 Oximetry 11/14/17 11/14/17 11/14/17 11:31 11:58 12:00 Temperature 97.6 F Pulse Rate 74 Pulse Rate [ 86 From Monitor] Pulse Rate [ 86 Right Dorsalis Pedis] Respiratory 27 H 18 Rate Blood Pressure 140/58 O2 Sat by Pulse 91 96 Oximetry 11/14/17 11/14/17 11/14/17 12:01 12:31 13:01 Temperature Pulse Rate 77 76 77 Pulse Rate [ From Monitor] Pulse Rate [ Right Dorsalis Pedis] Respiratory 12 13 20 Rate Blood Pressure 171/95 140/58 149/78 O2 Sat by Pulse 99 97 Oximetry 11/14/17 11/14/17 13:31 14:04 Temperature Pulse Rate 79 80 Pulse Rate [ From Monitor] Pulse Rate [ Right Dorsalis Pedis] Respiratory 18 Rate Blood Pressure 149/78 149/78 O2 Sat by Pulse Oximetry Constitutional: no acute distress, alert, other (obese) Eyes: non-icteric ENT: oropharynx moist Neck: supple Effort: normal Ascultation: Bilateral: clear Cardiovascular: regular rate and rhythm (no mrg) Gastrointestinal: normoactive bowel sounds, soft, non-tender, non-distended Integumentary: normal Extremities: no cyanosis, pink and warm, edema (1+ bilateral LE edema) Neurologic: normal mental status, non-focal exam, pupils equal and round, CN II- XII normal Psychiatric: mood appropriate, affect normal CBC and BMP: 11/14/17 03:37 11/14/17 03:37 ABG, PT/INR, D-dimer: ABG POC ABG pH 7.357 (7.35-7.45) 11/13/17 05:54 POC ABG pCO2 51.3 (35-45) H 11/13/17 05:54 POC ABG pO2 103 (80-105) 11/13/17 05:54 POC ABG HCO3 28.8 11/13/17 05:54 POC ABG Total CO2 30 11/13/17 05:54 POC ABG O2 Sat 98 11/13/17 05:54 Abnormal lab findings: Abnormal Labs 11/13/17 11/13/17 11/13/17 03:35 03:35 05:54 RBC 5.14 H Hct 46.1 H [place] % (Auto) 11.9 H POC ABG pCO2 51.3 H Sodium 135 L Carbon Dioxide 18 L BUN 28 H Creatinine 1.8 H Glucose 323 H POC Glucose Calcium 7.8 L AST Total Creatine Kinase CK-MB (CK-2) Troponin T 0.036 H NT-Pro-B Natriuret Pep 7376 H Total Protein Albumin HDL Cholesterol 33 L 11/13/17 11/13/17 11/13/17 06:49 09:25 11:52 RBC Hct [place] % (Auto) POC ABG pCO2 Sodium Carbon Dioxide BUN Creatinine Glucose POC Glucose 122 H Calcium AST Total Creatine Kinase CK-MB (CK-2) Troponin T 0.032 H 0.039 H D NT-Pro-B Natriuret Pep Total Protein Albumin HDL Cholesterol 11/13/17 11/14/17 11/14/17 16:10 03:37 03:37 RBC 5.11 H Hct [place] % (Auto) 11.4 H POC ABG pCO2 Sodium Carbon Dioxide BUN 24 H Creatinine Glucose 154 H POC Glucose 147 H Calcium 7.9 L AST 43 H Total Creatine Kinase 567 H CK-MB (CK-2) 8.1 H Troponin T NT-Pro-B Natriuret Pep Total Protein 5.5 L Albumin 2.6 L HDL Cholesterol 11/14/17 11/14/17 07:55 11:30 RBC Hct [place] % (Auto) POC ABG pCO2 Sodium Carbon Dioxide BUN Creatinine Glucose POC Glucose 158 H 170 H Calcium AST Total Creatine Kinase CK-MB (CK-2) Troponin T NT-Pro-B Natriuret Pep Total Protein Albumin HDL Cholesterol Chest x-ray: report reviewed, image reviewed
--- NOTE | 2017-11-14 15:22 | XRay Report ---
LEFT ANKLE, 2 VIEWS History: Trauma, pain. Findings: There is moderate diffuse soft tissue swelling or edema. Normal bone mineralization. No acute osseous findings or joint pathology is identified. The fifth metatarsal base is intact. Impression: Nonspecific soft tissue swelling or edema. No acute bony injury identified.
[2017-11-15] MEDS: APRESOLINE PO SCH (05:18)
[2017-11-15] MEDS: LASIX IV SCH (05:18)
[2017-11-15] MEDS: HumaLOG SUB-Q SCH (08:19)
[2017-11-15 08:22] VITALS: BP 145/100
[2017-11-15] MEDS: PROzac PO SCH (09:31)
[2017-11-15] MEDS: COREG PO SCH (09:31)
[2017-11-15] MEDS: K-DUR PO SCH (09:31)
[2017-11-15] MEDS: ZESTRIL PO SCH (09:31)
[2017-11-15] MEDS: CATAPRES PO SCH (09:31)
[2017-11-15] MEDS: NORVASC PO SCH (09:32)
[2017-11-15] MEDS: BABY ASPIRIN PO SCH (09:32)
--- NOTE | 2017-11-15 10:34 | Discharge Summary ---
Providers - Providers Date of Admission: 11/13/17 06:39 Date of discharge: 11/15/17 Attending physician: DOMINGUEZ CARTWRIGHT 11/13/17 06:55 Consult to Physician [CONS] Routine Comment: Consulting Provider: ANNA KOENIG Physician Instructions: Reason For Exam: cc 11/13/17 11:43 Consult to Physician [CONS] Routine Comment: Consulting Provider: TRENT OAKES Physician Instructions: Reason For Exam: chest pain/acute on chronic systolic CHF Primary care physician: FRANCISCO BREAUX Hospitalization Reason for admission: SOB and accel htn Condition: Critical Hospital course: 52-year-old man with a history of chronic severe hypertension and a severe dilated nonischemic cardiomyopathy. Serial echocardiograms over the past year and a half have demonstrated a left ventricle ejection fraction 15-25%. A Persantine thallium stress test a year ago for multiple fusion, establishing a diagnosis of a nonischemic cardiomyopathy. The patient admits to noncompliance with medical therapy, noncompliance with salt restriction, and does not see a doctor on a regular basis. He was admitted to the hospital at this time with shortness of breath and uncontrolled hypertension, with his systolic blood pressure of 178 on presentation. He reported to not taking his blood pressure medicines in several months. Chest x-ray showed massive cardiomegaly, but no evidence of significant interstitial edema. EKG is sinus rhythm, left ventricle hypertrophy, poor R-wave progression and nonspecific T-wave changes. Cardiology saw the patient in consultation and recommended optimal blood pressure management with afterload reducing agents, beta blockers and diuretics. Patient was maintained on salt restricted diet and social services coordinator consult was obtained for assistance with medications. Patient was initially treated with IV Tridil which was later weaned off and by mouth medications were started. Patient's blood pressure stabilized and he is felt to have received maximal hospital benefit. Dedicated discharge time 34 minutes. Disposition: TO HOME OR SELFCARE Time spent for discharge: 34 - Discharge Diagnoses (1) Diabetes Status: Acute Comment: Fair control with compliance. (2) Dilated cardiomyopathy Status: Acute (3) Obesity hypoventilation syndrome Status: Acute (4) Uncontrolled hypertension Status: Acute (5) Acute on chronic systolic heart failure Status: Acute Core Measure Documentation - Palliative Care Palliative Care/ Comfort Measures: Not Applicable - Core Measures Any of the following diagnoses?: heart failure - Heart Failure Discharge Requirements SOUTH/ARB for LVSD if EF <40%: Yes Beta ned at discharge: Yes Exam - Constitutional Vitals: Temp Pulse Resp BP Pulse Ox 97.7 F 81 25 H 145/100 89 11/15/17 08:01 11/15/17 08:01 11/15/17 08:01 11/15/17 08:31 11/15/17 08:31 General appearance: Present: no acute distress, well-nourished - EENT Eyes: Present: PERRL ENT: hearing intact, clear oral mucosa - Neck Neck: Present: supple, normal ROM - Respiratory Respiratory effort: normal Respiratory: bilateral: CTA - Cardiovascular Heart Sounds: Present: S1 & S2. Absent: rub, click - Extremities Extremities: pulses symmetrical, No edema Peripheral Pulses: within normal limits - Abdominal General gastrointestinal: Present: soft, non-tender, non-distended, normal bowel sounds Male genitourinary: Present: normal - Integumentary Integumentary: Present: clear, warm, dry - Musculoskeletal Musculoskeletal: gait normal, strength equal bilaterally - Psychiatric Psychiatric: appropriate mood/affect, intact judgment & insight - Neurologic Neurologic: CNII-XII intact, moves all extremities Plan Activity: no restrictions Weight Bearing Status: Full Weight Bearing Diet: low fat, low cholesterol, low salt, diabetic Follow up with: FRANCISCO BREAUX MD [Primary Care Provider] - 3-5 Days TRENT OAKES MD [Staff Physician] - 7 Days Prescriptions: amLODIPine [Norvasc] 10 mg PO QDAY #30 tablet Aspirin [Aspirin BABY CHEW TAB] 81 mg PO QDAY #30 tab.chew Carvedilol [Coreg] 25 mg PO BID #30 tablet cloNIDine [Catapres] 0.1 mg PO Q12HR #60 tablet FLUoxetine [PROzac] 20 mg PO QDAY #30 capsule Furosemide [Lasix TAB] 40 mg PO DAILY@0600 #30 tablet hydrALAZINE [Apresoline TAB] 50 mg PO Q8HR #90 tablet Insulin NPH/Regular [NovoLIN 70/30] 28 unit SQ BID #30 units Lisinopril [Prinivil] 5 mg PO DAILY #30 tablet Potassium Chloride [K-Dur] 10 meq PO QDAY #30 tablet
--- NOTE | 2017-11-15 10:44 | Progress Note ---
Assessment and Plan Hypertension Diabetes Obstructive sleep apnea Dilated nonischemic cardiomyopathy no ischemia by MPI 08/2016 EF 15-20% on echo 10/2017 Non-compliant with medical therapy and outpatient cardiology office visits Substance abuse Recommendations: Optimal blood pressure management. Medical therapy for his dilated nonischemic cardiomyopathy with afterload reducing agents, beta blockers and diuretics. Salt/Fluid restriction. Subjective Date of service: 11/15/17 Principal diagnosis: CHF Interval history: Patient has no complaints. For planned discharge home today. Objective Vital Signs Temp Pulse Pulse Pulse Resp BP Pulse Ox 11/15/17 08:31 145/100 89 11/15/17 08:01 97.7 F 81 25 H 145/100 96 11/15/17 07:31 83 11 L 135/88 11/15/17 07:09 97 11/15/17 07:01 84 26 H 135/88 97 11/15/17 06:51 83 135/88 95 11/15/17 06:01 82 19 135/88 96 11/15/17 06:00 75 11/15/17 05:31 80 14 124/70 11/15/17 05:18 86 124/70 11/15/17 05:01 79 26 H 124/70 96 11/15/17 04:31 84 14 130/73 97 11/15/17 04:01 81 22 130/73 95 11/15/17 04:00 98.8 F 75 24 96 11/15/17 03:31 80 24 131/77 97 11/15/17 03:00 77 18 131/68 97 11/15/17 02:31 82 20 131/77 100 11/15/17 02:00 79 77 27 H 128/81 95 11/15/17 01:31 78 27 H 128/81 96 11/15/17 01:00 79 26 H 128/81 95 11/15/17 00:31 80 25 H 143/56 99 11/15/17 00:00 81 79 25 H 143/56 95 11/14/17 23:49 98.9 F 11/14/17 23:31 142/52 97 11/14/17 23:00 78 12 143/56 99 11/14/17 22:31 135/43 96 11/14/17 22:01 87 25 H 135/43 93 11/14/17 22:00 90 90 20 96 11/14/17 21:31 85 22 146/118 96 11/14/17 21:17 88 144/111 11/14/17 21:16 88 144/111 11/14/17 21:00 87 12 144/111 98 11/14/17 20:31 82 16 146/118 98 11/14/17 20:00 98.0 F 86 88 19 166/87 54 L 11/14/17 19:31 78 18 166/87 11/14/17 19:00 78 24 135/84 95 11/14/17 18:31 79 11 L 135/84 96 11/14/17 18:01 78 16 135/84 97 11/14/17 18:00 79 79 18 97 11/14/17 17:31 78 15 129/91 97 11/14/17 17:01 81 24 129/91 99 11/14/17 16:31 19 150/65 94 11/14/17 16:01 78 18 150/65 97 11/14/17 16:00 98.6 F 79 79 16 96 11/14/17 15:31 75 14 154/75 98 11/14/17 15:01 81 20 154/75 96 11/14/17 14:31 76 16 138/89 96 11/14/17 14:04 80 149/78 11/14/17 14:01 79 21 138/89 95 11/14/17 14:00 86 77 17 97 11/14/17 13:31 79 18 149/78 11/14/17 13:01 77 20 149/78 97 11/14/17 12:31 76 13 140/58 99 11/14/17 12:01 77 12 171/95 11/14/17 12:00 86 86 18 96 11/14/17 11:58 97.6 F 11/14/17 11:31 74 27 H 140/58 91 11/14/17 11:01 74 29 H 140/58 97 - Physical Examination General: No Apparent Distress HEENT: Positive: PERRL Cardiac: Positive: Reg Rate and Rhythm
== END 2017-11-15 10:45 | disposition home or self-care (01) | DRG 291 ==
LOC: ED 02:55 → CC1 06:39
PROVIDERS: ADMIT Internal Medicine; ATTEND Hospitalist
PROC: 4A033R1 Measurement of Arterial Saturation, Peripheral, Percutaneous Approach (ICD-10-PCS; principal; 2017-11-13)
PROC: 5A09357 Assistance with Respiratory Ventilation, Less than 24 Consecutive Hours, Continuous Positive Airway Pressure (ICD-10-PCS; 2017-11-13)
DX: I13.0 Hypertensive heart and chronic kidney disease with heart failure and stage 1 through stage 4 chronic kidney disease, or unspecified chronic kidney disease (principal); J96.01 Acute respiratory failure with hypoxia; I50.23 Acute on chronic systolic (congestive) heart failure; J96.02 Acute respiratory failure with hypercapnia; I16.1 Hypertensive emergency; N17.9 Acute kidney failure, unspecified; Z68.41 Body mass index [BMI] 40.0-44.9, adult; E66.2 Morbid (severe) obesity with alveolar hypoventilation; I42.0 Dilated cardiomyopathy; J45.909 Unspecified asthma, uncomplicated; F19.10 Other psychoactive substance abuse, uncomplicated; N18.3 Chronic kidney disease, stage 3 (moderate); E11.22 Type 2 diabetes mellitus with diabetic chronic kidney disease; F14.10 Cocaine abuse, uncomplicated; Z79.4 Long term (current) use of insulin; Z79.82 Long term (current) use of aspirin; Z91.14 Patient's other noncompliance with medication regimen
CPT/HCPCS: 36415; 71045; 80048; 80053; 80061; 80307; 82550; 82553; 82803; 82962; 83735; 83880; 84100; 84484; 85025; 93005; 93010; 94660; 94760; 96374; 96375; J0360; J1815; J1940